=== PATIENT | male | born 1940 | race Caucasian/White ===

== ENCOUNTER 2017-04-19 11:06 | Emergency (ER) | payer OTHER ==
[~2017-04-19] VITALS: Ht 167.6 cm; Wt 92.7 kg
[~2017-04-19 11:06] MED LIST: B COCAP3 PO; BIOT1CAP4 PO; FINA5TAB4 PO; GLUC1CAP28 PO; METO100T44 PO; METO25TA3 PO; MULT-506 PO; OMEGCAP2 PO; RIVA1TAB4 PO; TAMS0.4C59 PO
[2017-04-19 11:14] VITALS: TEMP 37.6; Ht 167.6 cm; Wt 92.7 kg
[2017-04-19] MEDS ORDERED: DIGO30TA PO (11:36)
[2017-04-19] MEDS ORDERED: METO-217 PO (11:36)
--- NOTE | 2017-04-19 12:09 | EMERGENCY ROOM VISIT NOTE ---
History Report prepared by Pa: Lesia Amin Under the Supervision of: Dr. Malik Davey M.D. First contact with patient: 11:56 Chief Complaint: CONGESTION Stated Complaint: CHEST CONGESTION Nursing Triage Summary: pt reports tues started with congestion and sore throat , then cough with clear mucus on sat. denies cp. reports increased sob with exertion reports this is new History of Present Illness The patient is a 76 year old male who presents to the Emergency Room with complaints of constant congestion beginning 4 days ago. The patient states that he has been having chest congestion that has been worsening over the last 4 days. He complains of a sore throat, productive cough, runny nose, and shortness of breath with exertion. He denies any chest pain, abdominal pain, fever, chills. The patient notes that he was concerned that he may be getting pneumonia. He states that he has a history of atrial fibrillation and take Metoprolol and Digitek for atrial flutter. He reports that he took Advil PM last night and slept well and felt slightly better. Source of History: patient Onset: 4 days ago Position: chest Quality: other (conjestion) Timing: constant Associated Symptoms: + sorethroat, + cough, No abdominal pain Note: He complains of a runny nose, and shortness of breath with exertion. He denies any chest pain, fever, chills, and leg pain. Review of Systems All systems have been listed, reviewed, and are negative other than those previously mentioned. Please see Additional Medical History Sheet. Past Medical & Surgical Medical Problems: (1) Atrial fibrillation (2) HTN (hypertension) Surgical Problems: (1) H/O hernia repair (2) S/P hip replacement Family History Cancer Heart disease Lung disease Social History Smoking Status: Former Smoker Marital Status: single Housing Status: lives alone Occupation Status: retired Current/Historical Medications Scheduled B Complex W/ C (Vitamin B Complex-C), 1 CAP PO DAILY Biotin (Biotin), 1 CAP PO DAILY Digoxin (Digitek), 0.125 MG PO DAILY Finasteride (Proscar), 5 MG PO QPM Hjrcbjirepo-Qcdkllwwfuq-Unr C- (Glucosamine Chondroitin M), 2 CAP PO DAILY Metoprolol Succ (Toprol Xl) (Toprol-Xl ), 100 MG PO DAILY Metoprolol Succinate (Toprol Xl), 50 MG PO DAILY Multivitamin (Multivitamin), 1 TAB PO DAILY [place]-3 Fatty Acids (Fish Oil), 1 CAP PO DAILY Rivaroxaban (Xarelto), 20 MG PO DAILY Allergies Coded Allergies: No Known Allergies (Unverified , 11/02/13) Physical Exam Vital Signs Date Time Temp Pulse Resp B/P (MAP) Pulse Ox O2 Delivery O2 Flow Rate FiO2 04/19/17 13:23 72 18 137/88 99 04/19/17 12:48 72 18 136/81 96 Room Air 04/19/17 12:13 85 04/19/17 12:10 95 Room Air 04/19/17 11:14 37.6 89 20 138/79 95 Room Air Physical Exam GENERAL: Patient awake, alert, oriented x 3. Patient follows commands. Patient does not appear toxic. Patient is adequately hydrated and well- nourished. SKIN: No erythema, pallor, cyanosis or rash HEENT: Normal head, pupils equal, reactive to light and accommodation. Ears normal. Oral cavity and posterior pharynx appear normal. Neck: Without adenopathy, no neck vein distention. LUNGS: Clear to auscultation. No wheezes, no rales, no rhonchi. HEART: Grade 3/6 systolic murmur. Irregularly irregular. No gallops. No rubs ABDOMEN: No masses, no rebound, no hepatomegaly or splenomegaly. EXTREMITIES: No signs of trauma. No pedal or pretibial edema. No calf or thigh tenderness. NEUROLOGIC: Cranial nerves II-XII within normal limits. No gross motor sensory function deficits. Medical Decision & Procedures ER Provider Diagnostic Interpretation: X ray results are stated below per my interpretation and the radiologist's interpretation. CHEST 2 VIEWS ROUTINE FINDINGS: The bones soft tissues and hemidiaphragms are normal. The cardiomediastinal silhouette is normal. The lungs are clear. The pulmonary vasculature is normal. IMPRESSION: Negative chest. Electronically signed by: Nino Freeman M.D. 04/19/2017 12:37 PM Dictated Date/Time: 04/19/2017 12:37 PM Laboratory Results 04/19/17 11:24 Red Blood Count 5.14, Mean Corpuscular Volume 88.9, Mean Corpuscular Hemoglobin 29.4, Mean Corpuscular Hemoglobin Concent 33.0, Mean Platelet Volume 10.1, Neutrophils (%) (Auto) 58.3, Lymphocytes (%) (Auto) 25.4, Monocytes (%) (Auto) 14.7, Eosinophils (%) (Auto) 0.4, Basophils (%) (Auto) 0.7, Neutrophils # (Auto ) 4.96, Lymphocytes # (Auto) 2.16, Monocytes # (Auto) 1.25, Eosinophils # (Auto ) 0.03, Basophils # (Auto) 0.06 04/19/17 11:24 Test 04/19/17 11:24 White Blood Count 8.50 K/uL (4.8-10.8) Red Blood Count 5.14 M/uL (4.7-6.1) Hemoglobin 15.1 g/dL (14.0-18.0) Hematocrit 45.7 % (42-52) Mean Corpuscular Volume 88.9 fL (80-100) Mean Corpuscular Hemoglobin 29.4 pg (25-34) Mean Corpuscular Hemoglobin Concent 33.0 g/dl (32-36) Platelet Count 249 K/uL (130-400) Mean Platelet Volume 10.1 fL (7.4-10.4) Neutrophils (%) (Auto) 58.3 % Lymphocytes (%) (Auto) 25.4 % Monocytes (%) (Auto) 14.7 % Eosinophils (%) (Auto) 0.4 % Basophils (%) (Auto) 0.7 % Neutrophils # (Auto) 4.96 K/uL (1.4-6.5) Lymphocytes # (Auto) 2.16 K/uL (1.2-3.4) Monocytes # (Auto) 1.25 K/uL (0.11-0.59) Eosinophils # (Auto) 0.03 K/uL (0-0.5) Basophils # (Auto) 0.06 K/uL (0-0.2) RDW Standard Deviation 41.6 fL (36.4-46.3) RDW Coefficient of Variation 12.8 % (11.5-14.5) Immature Granulocyte % (Auto) 0.5 % Immature Granulocyte # (Auto) 0.04 K/uL (0.00-0.02) Anion Gap 8.0 mmol/L (3-11) Est Creatinine Clear Calc Drug Dose 56.7 ml/min Estimated GFR () 68.1 Estimated GFR (Non- 58.8 BUN/Creatinine Ratio 19.5 (10-20) Calcium Level 8.6 mg/dl (8.5-10.1) Laboratory results as stated above per my review. ECG Indication: other (chest congestion) Rate (beats per minute): 82 Rhythm: atrial flutter Findings: LBBB (incomplete), nonspecific-ST abn Comparison ECG Date: NOV 03, 2013 Change: Now in Atrial flutter with variable block. ED Course 1156: Past medical records reviewed. The patient was evaluated in room C10. A complete history and physical examination was performed. 1312: I reevaluated and updated the patient. 1322: Upon reevaluation, the patient appeared to have improvement of his symptoms. I discussed today's findings with the patient. He verbalized agreement of the treatment plan. The patient was discharged home. Medical Decision Differential diagnosis includes pneumonia, pneumonitis, URI, atrial flutter. Medication Reconciliation: I attest that I have personally reviewed the patient' s current medication list. Blood Pressure Screening: Patient was found to have a slightly elevated blood pressure due to circumstances. I do not believe that the patient requires hypertension monitoring. The patient has a long history of atrial fibrillation. He is now here with pulmonary symptoms. Chest x-ray does not reveal any new infiltrates. White count is not elevated. I believe he has upper respiratory infection. He also complains of some seasonal allergies. I believe that he can take one of the nokn-gsq-gfaidio antihistamines as long as it does not include Sudafed. The patient continue all his other medications as prescribed. Impression Primary Impression: Upper respiratory infection Additional Impressions: Atrial flutter Seasonal allergies Scribe Attestation The scribe's documentation has been prepared under my direction and personally reviewed by me in its entirety. I confirm that the note above accurately reflects all work, treatment, procedures, and medical decision making performed by me. Departure Information Dispostion Home / Self-Care Referrals Kyle Nolan M.D. (PCP) Forms HOME CARE DOCUMENTATION FORM, IMPORTANT VISIT INFORMATION Patient Instructions ED URI Viral, My [facility] Additional Instructions REST Drink extra fluids. Continue all of your current medications as prescribed. You may use Taty for seasonal allergies but not Taty-D. Follow-up with your family physician. Problem Qualifiers
[2017-04-19 12:10] VITALS: O2SAT 95
[2017-04-19 12:28] LABS: BASO % 0.7 %; BASO ABS # 0.06 K/uL (0-0.2); COMPLETE YES; EOS % 0.4 %; HEMATOCRIT 45.7 % (42-52); IG% 0.5 %; LYMPH % 25.4 %; LYMPH ABS # 2.16 K/uL (1.2-3.4); MEAN CELL VOLUME 88.9 fL (80-100); MEAN CORPUSCULAR HEMOGLOBIN 29.4 pg (25-34); MEAN PLATELET VOLUME 10.1 fL (7.4-10.4); MONO % 14.7 %; NEUT % 58.3 %; PLATELET COUNT 249 K/uL (130-400); RED BLOOD COUNT 5.14 M/uL (4.7-6.1)
[2017-04-19 12:35] LABS: BUN/CREATININE RATIO 19.5 (10-20); CALCIUM 8.6 mg/dl (8.5-10.1); CREATININE 1.2 mg/dl (0.60-1.40); POTASSIUM 4.4 mmol/L (3.5-5.1)
--- NOTE | 2017-04-19 12:38 | DIAGNOSTIC IMAGING REPORT ---
CHEST 2 VIEWS ROUTINE CLINICAL HISTORY: cough and congestion dyspnea COMPARISON STUDY: 11/02/2013 FINDINGS: The bones soft tissues and hemidiaphragms are normal. The cardiomediastinal silhouette is normal. The lungs are clear. The pulmonary vasculature is normal. IMPRESSION: Negative chest. Electronically signed by: Nino Freeman M.D. 04/19/2017 12:37 PM Dictated Date/Time: 04/19/2017 12:37 PM
[2017-04-19 13:23] VITALS: BP 137/88; PULSE 72; O2SAT 99
== END 2017-04-19 13:24 | disposition home or self-care (01) ==
LOC: C.EDB 11:07 → C.EDC 13:24
DX: J06.9 Acute upper respiratory infection, unspecified (principal); I48.92 Unspecified atrial flutter; J30.2 Other seasonal allergic rhinitis; I48.91 Unspecified atrial fibrillation; I10 Essential (primary) hypertension; Z80.9 Family history of malignant neoplasm, unspecified; Z82.49 Family history of ischemic heart disease and other diseases of the circulatory system; Z83.6 Family history of other diseases of the respiratory system; Z87.891 Personal history of nicotine dependence; Z79.01 Long term (current) use of anticoagulants; Z79.899 Other long term (current) drug therapy

== ENCOUNTER → 2017-04-26 | Outpatient (CLI) | payer OTHER ==
[~2017-04-26] MED LIST changes: +DIGO30TA PO; +METO-217 PO; -METO25TA3 PO; -TAMS0.4C59 PO
--- NOTE | 2017-04-26 09:27 | DIAGNOSTIC IMAGING REPORT ---
CHEST 2 VIEWS ROUTINE CLINICAL HISTORY: J20.9 Acute bronchitis with [id number] COMPARISON STUDY: 04/19/2017 FINDINGS: The cardiac and mediastinal contours are normal. There is no evidence of focal pulmonary consolidation. There is no evidence of failure. No pleural effusions are visualized.[ IMPRESSION: No active disease in the chest. Electronically signed by: Vikash Quinn M.D. 04/26/2017 9:26 AM Dictated Date/Time: 04/26/2017 9:21 AM
== END | disposition home or self-care (01) ==
LOC: C.RADBC 09:05
PROVIDERS: ATTEND Internal Medicine
DX: J20.9 Acute bronchitis, unspecified (principal)

== ENCOUNTER → 2017-08-08 | Outpatient (CLI) | payer OTHER ==
[~2017-08-08] MED LIST changes: -METO100T44 PO; +METO1TAB69 PO
[2017-08-08 13:45] LABS: CHOLESTEROL/HDL RATIO 4.2; THYROID STIMULATING HORMONE 1.27 uIu/ml (0.300-4.500)
== END | disposition home or self-care (01) ==
LOC: C.LABBC 10:31
PROVIDERS: ATTEND Internal Medicine
DX: E78.5 Hyperlipidemia, unspecified (principal)

== ENCOUNTER → 2017-11-12 | Outpatient (CLI) | payer OTHER ==
[~2017-11-12] MED LIST changes: +METO100T44 PO; -METO1TAB69 PO
== END | disposition home or self-care (01) ==
LOC: C.LAB 08:07
PROVIDERS: ATTEND Urology
DX: N40.1 Benign prostatic hyperplasia with lower urinary tract symptoms (principal)

== ENCOUNTER 2017-11-26 15:16 | Emergency (ER) | payer OTHER ==
[~2017-11-26] VITALS: Ht 167.6 cm; Wt 89.1 kg
[2017-11-26 15:21] VITALS: BP 137/89; TEMP 36.8; O2SAT 96; Ht 167.6 cm; Wt 89.1 kg
--- NOTE | 2017-11-26 16:01 | DIAGNOSTIC IMAGING REPORT ---
R HIP UNILATERAL 2 VIEWS CLINICAL HISTORY: R hip pain COMPARISON: None. DISCUSSION: Total right hip arthroplasty. Good contact between prosthetic and underlying bone. No evidence for acetabular protrusion. Degenerative change of the visualized components of the right hemipelvis. There is no evidence for soft tissue swelling. IMPRESSION: Anatomic alignment status post total right hip arthroplasty. No acute process. The above report was generated using voice recognition software. It may contain grammatical, syntax or spelling errors. Electronically signed by: Nino Freeman M.D. 11/26/2017 4:00 PM Dictated Date/Time: 11/26/2017 3:59 PM
--- NOTE | 2017-11-26 16:02 | DIAGNOSTIC IMAGING REPORT ---
R SHOULDER MIN 2 VIEWS ROUTINE CLINICAL HISTORY: R shoulder pain TRAUMA COMPARISON: None. DISCUSSION: No fractures or dislocations are visualized. There are no erosive or destructive changes. IMPRESSION: No fractures or dislocations identified. Electronically signed by: Vikash Quinn M.D. 11/26/2017 4:01 PM Dictated Date/Time: 11/26/2017 4:00 PM
--- NOTE | 2017-11-26 16:32 | EMERGENCY ROOM VISIT NOTE ---
ED Visit Note First contact with patient: 15:25 I did evaluate and examine this patient myself. I did guide management for the patient. I agree with the APC's assessment as discussed. Please see the APC's dictation for further details. I did independently review the x-rays. There is no evidence of fractures to his hip or shoulder. He is not sure if he hit his head. The patient is on Xarelto and so a head CT was performed.
--- NOTE | 2017-11-26 16:54 | DIAGNOSTIC IMAGING REPORT ---
HEAD WITHOUT CONTRAST (CT) CT DOSE: 638.56 mGycm HISTORY: Trauma fall on ice - eval possible [facility] - on Xarelto TECHNIQUE: Multiaxial CT images of the head were performed without the use of intravenous contrast. A dose lowering technique was utilized adhering to the principles of ALARA. Comparison: None. Findings: The paranasal sinuses and mastoid air cells are clear. The calvarium and skull base are intact. The ventricles and sulci are within normal limits. There is no mass, hematoma, midline shift, or acute infarct. Mild age-related atrophy and chronic small vessel change Impression: No acute intracranial abnormality. Mild age-related atrophy and chronic small vessel change The above report was generated using voice recognition software. It may contain grammatical, syntax or spelling errors. Electronically signed by: Nino Freeman M.D. 11/26/2017 4:53 PM Dictated Date/Time: 11/26/2017 4:52 PM
--- NOTE | 2017-12-02 07:11 | EMERGENCY ROOM VISIT NOTE ---
History First contact with patient: 15:25 Chief Complaint: SHOULDER PAIN Stated Complaint: RIGHT SHOULDER History of Present Illness The patient is a 77 year old male who presents to the Emergency Room with complaints of injuries after he slipped on ice and fell while trying to get into his car. The patient reports landing on his right side. He attempted to catch himself with his right upper extremity, and jammed his shoulder. He also reports landing on his right hip. The patient has had a prior history of right hip replacement by Dr. Lau in 1994. The patient denies hitting his head, and denies any neck pain, back pain or other extremity injuries. The patient rates his discomfort an 8 out of 10. Review of Systems 10 system review was performed and was negative except for pertinent positives and negatives as indicated in history of present illness Past Medical/Surgical History Medical Problems: (1) Atrial fibrillation (2) HTN (hypertension) Surgical Problems: (1) H/O hernia repair (2) S/P hip replacement Family History Cancer Heart disease Lung disease Social History Smoking Status: Former Smoker Marital Status: single Housing Status: lives alone Occupation Status: retired Current/Historical Medications Scheduled B Complex W/ C (Vitamin B Complex-C), 1 CAP PO DAILY Biotin (Biotin), 1 CAP PO DAILY Digoxin (Digitek), 0.125 MG PO DAILY Finasteride (Proscar), 5 MG PO QPM Qaiqogojjze-Qrynvopvwia-Rzu C- (Glucosamine Chondroitin M), 2 CAP PO DAILY Metoprolol Succ (Toprol Xl) (Toprol-Xl ), 100 MG PO DAILY Metoprolol Succinate (Toprol Xl), 50 MG PO DAILY Multivitamin (Multivitamin), 1 TAB PO DAILY [place]-3 Fatty Acids (Fish Oil), 1 CAP PO DAILY Rivaroxaban (Xarelto), 20 MG PO DAILY Allergies Coded Allergies: No Known Allergies (Unverified , 11/26/17) Physical Exam Vital Signs Date Time Temp Pulse Resp B/P (MAP) Pulse Ox O2 Delivery O2 Flow Rate FiO2 11/26/17 15:21 36.8 87 20 137/89 96 Room Air Physical Exam CONSTITUTIONAL: Healthy and well nourished. Alert and oriented X 3 with positive affect. Patient does not appear in any acute distress. GCS 15. HEENT: Normocephalic, atraumatic. Pupils equal, round and reactive. No subconjunctival hemorrhage, hemotympanum, epistaxis, raccoon's eyes or Prado sign. NECK: Full active range of motion without discomfort. RESPIRATORY: Clear to auscultation bilaterally with no wheezing, crackles, rhonchi or stridor. CARDIOVASCULAR: Regular rate and rhythm with no murmurs, rubs or gallops. GASTROINTESTINAL: Bowel sounds present in all quadrants. Soft and nontender to palpation. MUSCULOSKELETAL: Examination shows limited range of motion of the right shoulder. He has no landmarks tenderness of the acromioclavicular joint, bicipital groove, clavicle or elbow region. Further exam shows no ecchymosis or soft tissue edema of the right hip/buttock region. Negative logroll. Negative sitting straight leg raise. Distal pulses are intact. No tenderness to palpation through the posterior ribs or thoracolumbar spine. Equal hand shipping processor bilaterally. INTEGUMENTARY: No rash or other significant dermatologic conditions noted. NEUROLOGIC: No focal neurologic deficits noted. Upper extremities are sensory intact. Medical Decision & Procedures ER Provider Diagnostic Interpretation: My interpretation of right shoulder x-rays does not show any obvious fractures or dislocations. Radiologist report is as follows: R SHOULDER MIN 2 VIEWS ROUTINE CLINICAL HISTORY: R shoulder pain TRAUMA COMPARISON: None. DISCUSSION: No fractures or dislocations are visualized. There are no erosive or destructive changes. IMPRESSION: No fractures or dislocations identified. My interpretation of right hip x-rays does not show any acute fractures or dislocation. Prosthesis is in correct position without any bony lysis. Radiologist report is as follows: R HIP UNILATERAL 2 VIEWS CLINICAL HISTORY: R hip pain COMPARISON: None. DISCUSSION: Total right hip arthroplasty. Good contact between prosthetic and underlying bone. No evidence for acetabular protrusion. Degenerative change of the visualized components of the right hemipelvis. There is no evidence for soft tissue swelling. IMPRESSION: Anatomic alignment status post total right hip arthroplasty. No acute process. Noncontrast CT of the head does not show any acute intracranial bleed, midline shift or mass effect. Radiologist report is as follows: HEAD WITHOUT CONTRAST (CT) CT DOSE: 638.56 mGycm HISTORY: Trauma fall on ice - eval possible [facility] - on Xarelto TECHNIQUE: Multiaxial CT images of the head were performed without the use of intravenous contrast. A dose lowering technique was utilized adhering to the principles of ALARA. Comparison: None. Findings: The paranasal sinuses and mastoid air cells are clear. The calvarium and skull base are intact. The ventricles and sulci are within normal limits. There is no mass, hematoma, midline shift, or acute infarct. Mild age-related atrophy and chronic small vessel change Impression: No acute intracranial abnormality. Mild age-related atrophy and chronic small vessel change ED Course Patient history and physical exam were performed. Nurse's notes were reviewed. Vital signs were reviewed and were normal. The patient refused any analgesics on initial exam. X-rays of the right shoulder and hip were normal. Noncontrast CT of the head was negative for intracranial bleed or other acute injuries. The patient was encouraged to perform range of motion exercises of the right shoulder to prevent stiffness. Intermittent application of ice to areas of discomfort. Tylenol as needed for pain. The patient refused any prescription analgesics. He was encouraged to follow-up with his PCP or orthopedics within the next week for recheck of his shoulder and hip. He was instructed to return to the emergency department for any other concerning symptoms. The patient was happy with plan of care, voiced understanding of all discharge instructions, and rated his discomfort a 5 out of 10 at the conclusion of my exam. The patient was also seen and examined by Dr. Shaw, ED attending physician, who agrees with workup and plan of care. Medical Decision Impression Primary Impression: Contusion of right hip Additional Impressions: Right shoulder strain Fall due to slipping on ice or snow Departure Information Dispostion Home / Self-Care Forms HOME CARE DOCUMENTATION FORM, IMPORTANT VISIT INFORMATION Patient Instructions [facility] Additional Instructions Intermittently apply ice to areas of discomfort. Perform shoulder range of motion exercises as suggested to avoid stiffness. Tylenol 1000 mg every 6-8 hours as needed for pain. Suggest follow-up with your family doctor or orthopedics for recheck of your shoulder and hip in the next 5-7 days if symptoms are not improving. Problem Qualifiers
== END 2017-11-26 17:15 | disposition home or self-care (01) ==
LOC: C.EDB 15:17 → C.EDD 17:15
DX: S70.01XA Contusion of right hip, initial encounter (principal); S46.911A Strain of unspecified muscle, fascia and tendon at shoulder and upper arm level, right arm, initial encounter; W00.9XXA Unspecified fall due to ice and snow, initial encounter; I10 Essential (primary) hypertension; I48.91 Unspecified atrial fibrillation; R40.2412 Glasgow coma scale score 13-15, at arrival to emergency department; Z96.641 Presence of right artificial hip joint; Z79.01 Long term (current) use of anticoagulants; Z87.891 Personal history of nicotine dependence; Z82.49 Family history of ischemic heart disease and other diseases of the circulatory system; Z83.6 Family history of other diseases of the respiratory system

== ENCOUNTER 2019-08-26 06:51 | Observation (INO) ==
[2019-08-26] MEDS ORDERED: MIDAZOLAM HCL 5 MG/ML 1 ML VIAL ONE (07:37)
[2019-08-26] MEDS ORDERED: LIDOCAINE HCL 1% 20 ML VIAL ONE (07:37)
[2019-08-26] MEDS ORDERED: fentaNYL citrate 100 MCG/2 ML VIAL ONE (07:37)
[2019-08-26] MEDS ORDERED: BUPIVACAINE 0.25% 30 ML VIAL ONE (07:37)
[2019-08-26] MEDS ORDERED: BACITRACIN INJ 50,000 UNIT VIAL ONE (07:38)
[2019-08-26] MEDS ORDERED: CEFAZOLIN 250 MG/ML 1 GM VIAL ONE (07:38)
--- NOTE | 2019-08-26 08:27 | History & Physical Bridge Note ---
Date of Service August 26, 2019 History & Physical Bridge Note I have examined the patient, reviewed the History & Physical and in the interval since the performance of the History & Physical I have noted the following changes of clinical significance: no changes noted
--- NOTE | 2019-08-26 08:27 | Pre Anesthesia Assessment ---
Date of Service August 26, 2019 Pre Sedation Assessment Vital Signs Temp Pulse Resp BP Pulse Ox 08/26/19 07:21 36.7 C 103 H 16 139/91 96 Cardiovascular + irregularly irregular Respiratory + respiratory effort normal Pre-Sedation Airway Assessment Smoking Status: Former smoker Hx Sleep Apnea: No Short, Thick Neck: No Thyromental Distance: > or= 3.5 Finger Breadths Oral Cavity: + Dentures Mallampati Class: III ASA: ASA4 NPO Status Date of Last Intake of Fluids: 08/26/19 Time of Last Intake of Fluids: 06:00 Last Oral Intake of Fluids Comment: sip with meds Date of Last Intake of Solid Food: 08/25/19 Time of Last Intake of Solid Foods: 18:00 Procedure Planning Contraindications for Sedation: none Current Medications Reviewed: Yes Notes The planned sedation has been discussed with the patient. Informed Consent was obtained. I have identified the patient, determined the appropriateness of s edation and have assessed the patient immediately prior to the procedure. All medicine(s) and interventions are by my order.
[2019-08-26] MEDS ORDERED: ACETAMINOPHEN 325 MG TAB PO PRN (09:21)
--- NOTE | 2019-08-26 09:21 | Procedure Note ---
Procedure Note Date of Service August 26, 2019 Note Procedure performed: Implantation of single-chamber permanent pacemaker Staff sociocultural anthropology professor: Jay Jaime MD Indication: The patient is a 78-year-old gentleman with a recent implantation of a percutaneous aortic valve. There was noted to have permanent atrial fibrillation and in the post procedure. Was also noted to have episodes of asystole lasting nearly 4 seconds. Yesterday he suffered a syncopal episode. Based on his symptoms and known conduction disease is felt be good candidate for permanent pacemaker due to symptomatic nonreversible AV node dysfunction. Procedure in detail: The patient was informed of the risks benefits and alternatives to the intended procedure and she wished to proceed. He was taken to the electrophysiology suite in a fasting state. A preoperative antibiotic had been administered. The patient was monitored electrocardiographically throughout today's procedure and conscious sedation was administered per protocol. The left upper pectoral area is prepped and draped in usual sterile fashion. This area was anesthetized using subcutaneous administration of a xylocaine solution. An incision was made at this site and carried down to the prepectoralis fascia using sharp dissection. Electrocautery was also employed for dissection as well as for hemostasis. A device pocket was fashioned tissues above the pectoralis muscle. Subsequent to this maneuver the left axillary vein was accessed using modified Seldinger technique. A sheath was placed over a guidewire at this site and used to facilitate passage of the pacing lead to the right ventricular apex under fluoroscopic guidance. Adequate sensing and threshold parameters were obtained prior to Active fixation of the lead to the endocardial surface. The proximal portion lead was then sutured the prepectoral fascia using nonabsorbable suture. The device pocket was irrigated with antibiotic solution. The lead was then attached to the device. The device and lead were then placed in the pocket and pocket was closed in 3 layers of absorbable suture. Steri-Strips and sterile dressing were applied. The device was tested noninvasively prior to conclusion the procedure. The patient tolerated procedure well there no immediate complications. Equipment used: New pulse generator: X Ray Technician [employer]. Model number: [id number] serial number [id number] Right ventricular lead: X Ray Technician [employer]. Model number: [id number] serial number [id number] Measured data: Right ventricular lead: R waves measured 6.9 mV. Pacing threshold 0.6 V 0.5 ms with a pacing impedance of 807 ohms Impression: Successful implantation of single-chamber permanent pacemaker Coding
[2019-08-26] MEDS ORDERED: OXYCODONE HCL IR 5 MG TAB (IMMEDIATE RELEASE) PO PRN (09:23)
[2019-08-26] MEDS ORDERED: METOPROLOL TARTRATE 50 MG TAB PO ONE (09:24)
--- NOTE | 2019-08-26 09:25 | Post Anesthesia Assessment ---
Date of Service August 26, 2019 Post Sedation Assessment Vital Signs Temp Pulse Resp BP Pulse Ox 08/26/19 07:21 36.7 C 103 H 16 139/91 96 Recovery Score Activity: Moves 4 extremities Respiration: Deep Breath/Cough Circulation: +/-20% PreAnes Value Consciousness: Fully Awake Oxygen Saturation: > 92% On Room Air Post Sedation Plan On clinical assessment, the patient appears to have tolerated the sedation without complications. Patient is recovering as anticipated. Patient will continue to be monitored by nursing and may be discharged when sedation discharge criteria are met per below protocol. Upon Completions of procedure and additional 15 minutes continue every 5 minute vital signs and the P.A.R. score; then discharge to a Phase I or Fast Track to Phase II per the following guidelines: * Discharge Patient to appropriate Phase II area if PAR is 8 or greater or return to pre- procedure baseline. The post - procedure orders will be as directed. * If PAR score is less than 8 or not return to pre-procedure baseline then patient will follow Phase I monitoring till PAR is reached for Phase II. The Phase I may be done in procedure room or may call to secure a Phase I area. * If naloxone or flumazenil are used for reversal, hold in Phase I for c ontinued monitoring from when last reversal dose was given for a minimum of 60 minutes or longer pending the nurse and/or physician discretion of patient condition before discharge to Phase II. Please call the Sedation Physician to re-evaluate and complete post-note for discharge to Phase II area. Do NOT discharge from procedure sedation or Phase 1 until post- sedation evaluation note is complete by procedure /sedation MD Sedation Discharge Instructions to be given to the patient at discharge to home.
[2019-08-26] MEDS: CEFAZOLIN 1000MG 1,000 MG/7.5 ML SYR IV SCH ×2 (15:49→23:27)
[2019-08-27] MEDS: CEFAZOLIN 1000MG 1,000 MG/7.5 ML SYR IV SCH (07:22)
--- NOTE | 2019-08-27 08:46 | XRay Report ---
XR chest 2V PA/lateral CLINICAL HISTORY: 78 years-old Male presenting with EXACT TIME ORDERED Evaluate for pneumothorax and l. TECHNIQUE: PA and lateral views of the chest were obtained. COMPARISON: 11/02/2013. FINDINGS: Interval placement of a left subclavian pacer with single lead to the right ventricular apex. Atheros clerosis of the aortic arch. Cardiac silhouette enlarged. Mitral annular calcification noted. Stented prosthetic aortic valve. Mildly coarsened lung markings. No focal opacity. No large effusion or pneu mothorax. Suspected underlying osteopenia. Degenerative changes of the thoracic spine. Fractures of t he anterolateral right sixth and seventh ribs, age indeterminate. IMPRESSION: 1. Interval placement of a left subclavian single lead pacer, appropriately positioned. No pneumotho rax. 2. Cardiomegaly. 3. Age-indeterminate anterolateral right sixth and seventh rib fractures. Correlate clinically for p oint tenderness. Electronically signed by: Kyle Michelle M.D. 08/27/2019 8:45 AM
[2019-08-27] MEDS ORDERED: METOPROLOL SUCC 50MG EXT REL TAB PO SCH (09:00)
[2019-08-27] MEDS ORDERED: FINASTERIDE 5 MG TAB PO SCH (09:00)
--- NOTE | 2019-08-31 12:58 | Discharge Summary ---
Date of Service August 31, 2019 Admission HPI Per Admitting Provider Patient with syncope and conduction disease Principal Diagnosis q Discharge Data Allergies Allergy/AdvReac Type Severity Reaction Status Date / Time No Known Allergies Allergy Verified 08/18/19 10:39 Procedures Performed Operation Date: 08/26/19 08:30 Actual Procedures p Pacer with Ventricular Lead - David Jaime MD Ordered Studies 08/26/19 06:38 CL Cath Imgs for PACS use only Routine Hospital Course (1) Syncope: Patient was admitted underwent uncomplicated placement of single chamber [employer] permanent pacemaker Total Time Total Time Spent Total Time Spent (In Minutes): 10 Discharge Plan Discharge Items Patient Disposition: Home - Self-Care Reason For Visit: SCP Discharge Diagnosis: Syncope, heart block Activity: Resume your previous activity Activity Comment: No lifting left arm above shoulder behind neck for 6 weeks Lifting: No more than 10 pounds Bathing: Keep incision dry Bathing Comment: Keep incision dry and Steri-Strips intact until follow-up Driving/Machine Use: No limitations Non-emergency contact: Trial Consultant Call non-emergency contact if: your pain is concerning for you, you have a fever, your wound has increased redness and your wound has increased drainage Follow-up/Referrals: Kyle Nolan MD [Primary Care Provider] - Diet: Heart Healthy Addtl Attending Provider Instructions: None Pending Studies at Discharge: No Stand-Alone Forms: My [facility] Medications and DC Order Prescriptions: Continued ammonium lactate 12 % cream 1 appln TOP DAILY Qty: 140 RF: 0 biotin 2,500 mcg capsule 2,500 mcg PO DAILY Qty: 30 RF: 2 Centrum Silver 400-250 mcg tablet,chewable 1 tab PO DAILY Qty: 30 RF: 0 finasteride 5 mg tablet 5 mg PO DAILY Qty: 30 RF: 2 omega-3 fatty acids 1,000 mg capsule 1,000 mg PO DAILY Qty: 30 RF: 0 Glucosamine Complex-MSM capsule 1 cap PO DAILY Qty: 90 RF: 0 vitamin B complex [B Complex 1] tablet 1 tab PO DAILY Qty: 30 RF: 0 Xarelto 20 mg tablet 20 mg PO DAILY Qty: 90 RF: 3 Changed metoprolol succinate 50 mg tablet extended release 24 hr 100 mg PO DAILY Qty: 0 RF: 0 Discharge Orders: Discharge Order (Routine); Ordered 08/27/19 Ordered By: Alethea Díaz Admission Data Admit Date/Time: 08/26/19 08:44 Attending Provider: David Jaime Admit Provider: David Jaime Primary Care Provider: Kyle Nolan Other Interventions: Discharge Summary Assessment (RN) Last Done: 08/27/19 09:11 DC Date/Time DO NOT enter until pt leaves facility: 08/27/19 10:45
--- NOTE | 2019-09-04 15:24 | Coding Query ---
A supporting diagnosis is required for the test/procedure performed on this patient in order for us to be reimbursed by the patient's insurance. Please provide a supporting diagnosis for the following test/procedure listed below next to the test name along with your signature. *If there is no additional diagnosis for this patient that would support the following test/procedure please document that below next to the test/procedure. Test(s)/Procedure(s) that require a supporting diagnosis: PACER WITH VENTRICULAR LEAD DIAGNOSIS: Provider Signature: Date: Thank you Jacqueline Bermudez Health Information Management Once completed, please kindly fax back to [phone] For questions please call [phone] MARCO A
== END 2019-08-27 10:45 | disposition home or self-care (01) ==
LOC: EP 06:51 → 2S 06:51

== ENCOUNTER 2020-05-08 17:43 | Inpatient (IN) ==
[2020-05-08] MEDS ORDERED: SODIUM CHLORIDE 0.9% 1000ML 1,000 ML IV ONE (17:55)
[2020-05-08 18:25] LABS: iSTAT Creatinine 1.7 mg/dl (0.6-1.3); iSTAT Ionized Calcium 0.97 mmol/l (1.12-1.32); iSTAT Potassium 5.6 mmol/L (3.3-5.0)
--- NOTE | 2020-05-08 18:26 | Emergency Department Note ---
Impression & Plan Fall, Pressure ulcer of back, MARCUS (acute kidney injury), Anaplasmosis, Elevated lactic acid level, Elevated LFTs, Non-ST elevation IL (NSTEMI), Rhabdomyolysis, Dyspnea, Atrial flutter, chronic ED Provider Note Provider: Geovany hZou MD DATE OF SERVICE: 05/08/2020 CHIEF COMPLAINT: Found on the floor, altered HISTORY OF PRESENT ILLNESS: Patient is a 79-year-old gentleman with a history of atrial fibrillation on Xarelto, cataract, BPH, hypertension, sick sinus syndrome with pacemaker presenting today after being found by a neighbor on the floor of his house. Evidently neighbor grew concerned when male began to stack up in the patient's mailbox and went to check on him. EMS states that they found the patient laying on carpeted floor at home on his back. States that the patient was somewhat groggy and mildly hypoxic requiring oxygen. Received 400 mL of IV fluid prior to arrival here at the hospital. No other family were noted at home there was some concerns about the cleanliness of the house the patient was living and reported. Patient was also found to be in urinated underwear and pants. Patient himself states he has some minimal mild diffuse pain and just feels fatigued. Patient denies shortness of breath. Patient states he is unsure how long he was on the floor for. Unable to give significant details here. Patient states he is 50 years old at 1978 and Jovani is the president. Patient states he does have a brother in the area. Patient states he takes Xarelto but has not today/this evening. REVIEW OF SYSTEMS: A total of 10 review of systems was obtained and negative except as stated above in the HPI. PAST MEDICAL HISTORY: As noted above MEDICATIONS: Reviewed his medication list which include Xarelto SOCIAL HISTORY: Former smoker, lives at home PHYSICAL EXAM: GENERAL: Laying on the stretcher with a nonrebreather in place open his eyes to commands and gives his name. Appears fatigued. Head: normocephalic and atraumatic EYES: No injection, discharge or icterus. PERRL NECK: Trachea midline. Supple. ENT: Mucous membranes pink and moist. LUNGS: Airway patent. No retractions. Breath sounds clear HEART: Regular rate and rhythm. No chest wall tenderness ABDOMEN: Soft and non-tender, without guarding or rebound. BACK: No midline tenderness, although there is some mild diffuse lower back/sacral pain as well as some slight pain overlying the left shoulder blade. A very large approximately 20 x 8 cm area of erythema with decompressed blister over the lower sacrum is present with some small stage II breakdown over the left shoulder blade area approximately 8 x 10 cm. No crepitus appreciated. SKIN: Acyanotic, warm, dry, without rashes EXTREMITIES: Without swelling, tenderness or deformity NEUROLOGICAL: No focal deficits. Moving all extremities. No apparent facial droop. Patient states his age is 50 is 1977, Jovani is the president. Unable to give detailed history of events. EK bpm appears to be atrial flutter with a 1-4 block with a left bundle branch. There is no acute ST segment elevation. QRS at 134 ms. QTC is 505. In comparison to previous available from April [id number] now has a full left bundle branch CONTINUOUS CARDIAC MONITORING: was ordered and showed a heart rate of 72 bpm in rate controlled a flutter Patient's hypertension was referred to the hospitalist GCS 13 slightly confused responses and eyes opening to verbal command HOSPITAL COURSE: [id number] Patient was first seen and H&P performed. Patient was rolled and soiled clothing was removed. 1813 patient reassessed and having blood work drawn at this time. 1917 patient updated sitting upright denying pain at this time. Updated on current findings and awaiting CT imaging. Discussed plan for admission. 2004 Patient reassessed and updated. Patient was sitting up in bed. Seems a bit more alert. In agreement with plan for admission. Hospitalist contacted, Dr. Pimentel. Patient's laboratory studies and imaging reviewed. Differential includes Fracture, dislocation, contusion, intra-abdominal, pneumothorax, intrathoracic, intracranial, neurologic, compartment syndrome, rhabdomyolysis, as well as other pathologies. IMPRESSION/MEDICAL DECISION MAKING: Patient presents with found on the floor for an unknown period of time at home with some shortness of breath and altered mental status. Patient seems a bit confused and unsure how long he was on the floor. Has evidence of pressure ulcerations of the back concerning for a significant time. Given some fluid hydration prior to arrival. No focal deficits appreciated. Patient is r equiring oxygen at this juncture. Temperature of 37 5 Celsius initially noted EMS states the patient was not in a significantly warm environment. Patient does have evidence what appears to be an acute kidney injury but no evidence of hyperkalemia. Lactate is elevated likely consistent with a dehydrational state and received intravenous IV fluids here. Laboratory studies showed some evidence of mild LFT abnormality and a blood smear consistent with anaplasmosis. Thrombocytopenia consistent with this. Given his increased work of breathing IV doxycycline was ordered. No anemia or leukocytosis. Patient has evidence of rhabdomyolysis with an elevated CPK. Again IV fluids have been ordered. Patient has an elevated troponin of 0.528 today concerning for likely demand given the history available rather than acute ACS. Chest x-ray with evidence of acute pneumothorax or pneumonia or lung space opacity. Pelvis x-ray without a noted fracture. CT the head without acute intracranial bleed noted. CT of the cervical spine, lumbar and, thoracic spine noted without acute traumatic injury. CT of the chest and pelvis shows no significant intra-thoracic or abdominal pelvic injury. We will start the patient on a low-dose heparin drip at this time without bolus given the trauma but acknowledging the fact he is in atrial flutter and with an elevated troponin. Patient in agrement for admission and seems a bit clearer; the hospitalist was alerted for admission. DIAGNOSIS: Fall, pressures ulcers of the back, confusion, anaplasmosis, acute kidney injury, rhabdomyolysis, NSTEMI, rate controlled atrial flutter, shortness of breath DISPOSITION: Hospitalist will evaluate, admission Patient was agreeable with this plan. Critical Care I have personally spent 37 minutes of critical care time in the direct management of this patient. This includes bedside care, interpretation of diagnostic studies, and testing, discussion with consultants, patient, and fa nav members, and other required patient management activities. These 37 minutes is in excess of all separately billable procedures. Past Med/Surg History Social History Preferred Language: Sami Communication Ability: Effective Visual Impairment: Limited Hearing Ability: Hard of Hearing Acid Adjuster Required: No Beliefs That Will Affect Care: None marital status: Single Current Living Situation: Alone current occupational status: retired Feels Safe at Home: Yes Smoking Status: Former smoker Tobacco Type: cigarettes ; Age Started Using Tobacco: 19 ; Age Quit Using Tobacco: 64 ; packs per day: 0.5 ; Cigarettes Per Day: 2003 ; Second Hand Exposure: No ; Hx Alcohol Use: No Hx Substance Use: No Childhood Exposure to Second-Hand Smoke: Yes caffeine: Yes during the past year weight has: decreased > 10 lbs Dental Care, Regularly: Yes Physical Activity Frequency: 1-2 Times per Week Seatbelt Use: always Sunscreen Use: Yes Allergies Allergies Allergy/AdvReac Type Severity Reaction Status Date / Time No Known Allergies Allergy Verified 05/08/20 18:15 Home Meds Home Medications Medication Instructions Recorded Confirmed Xarelto 20 mg PO QPM 01/01/20 05/08/20 diclofenac sodium 2 g TOPICAL UD PRN 01/01/20 05/08/20 metoprolol succinate 50 mg 50 mg PO QAM tab 03/22/20 05/08/20 tablet,extended release 24 hr ammonium lactate 1 appln TOP QPM 04/22/20 05/08/20 diphenhydramine-acetaminophen 1 tab PO HS PRN 04/22/20 05/08/20 [Acetaminophen PM] finasteride 5 mg PO QPM 04/22/20 05/08/20 vitamin B complex 1 cap PO DAILY 04/22/20 05/08/20 Previous Rx's Medication Instructions Recorded biotin 2,500 mcg capsule 2,500 mcg PO DAILY #30 cap 07/01/19 [id number]-[id number]-[id number]-vitC 1 cap PO DAILY #90 cap 07/01/19 multivit with min-folic 1 tab PO DAILY #30 tab 07/01/19 acid-lutein 400 mcg-250 mcg chewable tablet omega-3 fatty acids 1,000 mg 1,000 mg PO DAILY #30 cap 07/01/19 capsule Results & Data (ED) Vital Signs Vital Signs - 24 hr 05/08/20 17:43 05/08/20 18:06 05/08/20 18:15 Temperature 37.5 C Temperature Source Oral Pulse Rate 68 69 Pulse Rate [Apical] 68 Pulse Rate from SpO2 Sensor 68 Pulse Rhythm Irregular Pulse Rhythm [Apical] Irregular Respiratory Rate 36 H 38 H Respiratory Pattern Rapid/Deep Blood Pressure 155/77 H 162/83 H Blood Pressure [Left Arm] 162/83 H Blood Pressure Mean 103 103 Blood Pressure Mean [Left Arm] 109 Blood Pressure Position Lying Pulse Oximetry 95 99 99 Oxygen Delivery Method Non-rebreather Non-rebreather Oxygen Flow Rate Sepsis Recent Fever Within 48 Hours No Sepsis New/Unexplained Change in Mental Status No Sepsis Action Taken by Nursing No Action Required 05/08/20 18:22 05/08/20 18:31 05/08/20 19:21 Temperature Temperature Source Pulse Rate 69 69 Pulse Rate [Apical] Pulse Rate from SpO2 Sensor 69 67 Pulse Rhythm Pulse Rhythm [Apical] Respiratory Rate 38 H Respiratory Pattern Blood Pressure 147/90 H 166/76 H Blood Pressure [Left Arm] Blood Pressure Mean 100 90 Blood Pressure Mean [Left Arm] Blood Pressure Position Pulse Oximetry 99 95 98 Oxygen Delivery Method Non-rebreather Oxygen Flow Rate 13 Sepsis Recent Fever Within 48 Hours Sepsis New/Unexplained Change in Mental Status Sepsis Action Taken by Nursing Laboratory Data Result diagrams: 05/08/20 18:25 05/08/20 18:25 Lab Results 05/08/20 05/08/20 05/08/20 Range/Units 18:12 18:25 18:25 WBC (4.8-10.8) K/uL RBC (4.7-6.1) M/uL Hgb (14.0-18.0) g/dL POC Hgb 17.0 (14.0-18.0) g/dl Hct (42-52) % POC Hct 50 (42-52) % MCV (80-100) fL MCH (25-34) pg MCHC (32-36) g/dL RDW Std Deviation (36.4-46.3) fL RDW Coeff of Shahid (11.5-14.5) % Plt Count (130-400) K/uL MPV (7.4-10.4) fL Immature Gran % (Auto) % Neut % (Auto) % Lymph % (Auto) % Irwin % (Auto) % Eos % (Auto) % Baso % (Auto) % Neut # (Auto) (1.4-6.5) K/uL Lymph # (Auto) (1.2-3.4) K/uL Irwin # (Auto) (0.11-0.59) K/uL Eos # (Auto) (0-0.5) K/uL Baso # (Auto) (0-0.2) K/uL Immature Gran # (Auto) (0.00-0.02) K/uL Platelet Estimate (Normal) Giant Platelets PT 12.4 H (9.0-12.0) Seconds INR 1.2 H (0.9-1.1) APTT (21.0-31.0) Seconds PTT Ratio POC Sodium 135 (135-144) mmol/L Sodium (136-145) mmol/L POC Potassium 5.6 H (3.3-5.0) mmol/L Potassium (3.5-5.1) mmol/L POC Chloride 108 (101-112) mmol/L Chloride (98-107) mmol/L Carbon Dioxide (21-32) mmol/L POC Total CO2 18 L (24-31) mmol/L Anion Gap (3-11) POC Anion Gap 16.0 (16-25) mmol/L POC BUN 43 H (7-18) mg/dl BUN (7-18) mg/dl Creatinine (0.6-1.4) mg/dl POC Creatinine 1.7 H (0.6-1.3) mg/dl Est Cr Clr Drug Dosing ml/min Est GFR ( Amer) Est GFR (Non-Af Amer) BUN/Creatinine Ratio (10-20) Glucose (70-99) mg/dl POC Glucose (other) 133 H (70-99) mg/dl Lactate 3.6 H* (0.4-2.0) mmol/L Calcium (8.5-10.1) mg/dl POC Ioniz Calcium Ese 0.97 L (1.12-1.32) mmol/l Magnesium (1.8-2.4) mg/dl Total Bilirubin (0.2-1) mg/dl AST (15-37) U/L ALT (12-78) U/L Alkaline Phosphatase (45-117) U/L Total Creatine Kinase (39-308) U/L Troponin I (0-0.045) ng/ml Total Protein (6.4-8.2) gm/dl Albumin (3.4-5.0) gm/dl Globulin (2.5-4.0) gm/dl Albumin/Globulin Ratio (0.9-2) TSH (0.300-4.500) uIu/ml Urine Color Urine Appearance (Clear) Urine pH (4.5-7.5) Ur Specific [place] (1.000-1.030) Urine Protein (Negative) Urine Glucose (UA) (Negative) Urine Ketones (Negative) Urine Blood (Negative) Urine Nitrite (Negative) Urine Bilirubin (Negative) Urine Urobilinogen (Negative) Ur Leukocyte Esterase (Negative) Urine WBC (Auto) (0-5) /hpf Urine RBC (Auto) (0-4) /hpf U Hyaline Cast (Auto) (0-5) /lpf U Epithel Cells (Auto) (0-5) /lpf Urine Bacteria (Auto) (Negative) Ur Renal Epithelial Cell Granular Casts (0) /lpf Urine Yeast Anaplasma Smear Anaplasma Comment 05/08/20 05/08/20 05/08/20 Range/Units 18:25 18:25 18:25 WBC 6.66 (4.8-10.8) K/uL RBC 5.14 (4.7-6.1) M/uL Hgb 15.6 (14.0-18.0) g/dL POC Hgb (14.0-18.0) g/dl Hct 45.6 (42-52) % POC Hct (42-52) % MCV 88.7 (80-100) fL MCH 30.4 (25-34) pg MCHC 34.2 (32-36) g/dL RDW Std Deviation 44.0 (36.4-46.3) fL RDW Coeff of Shahid 13.6 (11.5-14.5) % Plt Count 87 L (130-400) K/uL MPV 11.1 H (7.4-10.4) fL Immature Gran % (Auto) 0.6 % Neut % (Auto) 74.0 % Lymph % (Auto) 18.0 % Irwin % (Auto) 6.9 % Eos % (Auto) 0.0 % Baso % (Auto) 0.5 % Neut # (Auto) 4.93 (1.4-6.5) K/uL Lymph # (Auto) 1.20 (1.2-3.4) K/uL Irwin # (Auto) 0.46 (0.11-0.59) K/uL Eos # (Auto) 0.00 (0-0.5) K/uL Baso # (Auto) 0.03 (0-0.2) K/uL Immature Gran # (Auto) 0.04 H (0.00-0.02) K/uL Platelet Estimate Decreased L (Normal) Giant Platelets 1+ PT (9.0-12.0) Seconds INR (0.9-1.1) APTT (21.0-31.0) Seconds PTT Ratio POC Sodium (135-144) mmol/L Sodium 137 (136-145) mmol/L POC Potassium (3.3-5.0) mmol/L Potassium 4.5 (3.5-5.1) mmol/L POC Chloride (101-112) mmol/L Chloride 105 (98-107) mmol/L Carbon Dioxide 20 L (21-32) mmol/L POC Total CO2 (24-31) mmol/L Anion Gap 12.0 H (3-11) POC Anion Gap (16-25) mmol/L POC BUN (7-18) mg/dl BUN 40 H (7-18) mg/dl Creatinine 1.77 H (0.6-1.4) mg/dl POC Creatinine (0.6-1.3) mg/dl Est Cr Clr Drug Dosing 33.3 ml/min Est GFR ( Amer) 41.7 Est GFR (Non-Af Amer) 36.0 BUN/Creatinine Ratio 22.4 H (10-20) Glucose 121 H (70-99) mg/dl POC Glucose (other) (70-99) mg/dl Lactate (0.4-2.0) mmol/L Calcium 8.9 (8.5-10.1) mg/dl POC Ioniz Calcium Ese (1.12-1.32) mmol/l Magnesium 2.8 H (1.8-2.4) mg/dl Total Bilirubin 1.5 H (0.2-1) mg/dl AST 166 H (15-37) U/L ALT 84 H (12-78) U/L Alkaline Phosphatase 59 (45-117) U/L Total Creatine Kinase 2470 H (39-308) U/L Troponin I 0.528 H* (0-0.045) ng/ml Total Protein 7.9 (6.4-8.2) gm/dl Albumin 2.7 L (3.4-5.0) gm/dl Globulin 5.2 H (2.5-4.0) gm/dl Albumin/Globulin Ratio 0.5 L (0.9-2) TSH 0.508 (0.300-4.500) uIu/ml Urine Color Dark Yellow Urine Appearance Turbid A (Clear) Urine pH 5.0 (4.5-7.5) Ur Specific [place] 1.028 (1.000-1.030) Urine Protein 2+ H (Negative) Urine Glucose (UA) Negative (Negative) Urine Ketones Trace H (Negative) Urine Blood 3+ H (Negative) Urine Nitrite Negative (Negative) Urine Bilirubin Negative (Negative) Urine Urobilinogen Negative (Negative) Ur Leukocyte Esterase Negative (Negative) Urine WBC (Auto) 1-5 (0-5) /hpf Urine RBC (Auto) 10-30 H (0-4) /hpf U Hyaline Cast (Auto) >30 H (0-5) /lpf U Epithel Cells (Auto) >30 H (0-5) /lpf Urine Bacteria (Auto) Negative (Negative) Ur Renal Epithelial Cell Not Reportable Granular Casts >30 H (0) /lpf Urine Yeast Not Reportable Anaplasma Smear See Comment A Anaplasma Comment Pos for Anaplasma 05/08/20 Range/Units 18:25 WBC (4.8-10.8) K/uL RBC (4.7-6.1) M/uL Hgb (14.0-18.0) g/dL POC Hgb (14.0-18.0) g/dl Hct (42-52) % POC Hct (42-52) % MCV (80-100) fL MCH (25-34) pg MCHC (32-36) g/dL RDW Std Deviation (36.4-46.3) fL RDW Coeff of Shahid (11.5-14.5) % Plt Count (130-400) K/uL MPV (7.4-10.4) fL Immature Gran % (Auto) % Neut % (Auto) % Lymph % (Auto) % Irwin % (Auto) % Eos % (Auto) % Baso % (Auto) % Neut # (Auto) (1.4-6.5) K/uL Lymph # (Auto) (1.2-3.4) K/uL Irwin # (Auto) (0.11-0.59) K/uL Eos # (Auto) (0-0.5) K/uL Baso # (Auto) (0-0.2) K/uL Immature Gran # (Auto) (0.00-0.02) K/uL Platelet Estimate (Normal) Giant Platelets PT (9.0-12.0) Seconds INR (0.9-1.1) APTT 33.1 H (21.0-31.0) Seconds PTT Ratio 1.2 POC Sodium (135-144) mmol/L Sodium (136-145) mmol/L POC Potassium (3.3-5.0) mmol/L Potassium (3.5-5.1) mmol/L POC Chloride (101-112) mmol/L Chloride (98-107) mmol/L Carbon Dioxide (21-32) mmol/L POC Total CO2 (24-31) mmol/L Anion Gap (3-11) POC Anion Gap (16-25) mmol/L POC BUN (7-18) mg/dl BUN (7-18) mg/dl Creatinine (0.6-1.4) mg/dl POC Creatinine (0.6-1.3) mg/dl Est Cr Clr Drug Dosing ml/min Est GFR ( Amer) Est GFR (Non-Af Amer) BUN/Creatinine Ratio (10-20) Glucose (70-99) mg/dl POC Glucose (other) (70-99) mg/dl Lactate (0.4-2.0) mmol/L Calcium (8.5-10.1) mg/dl POC Ioniz Calcium Ese (1.12-1.32) mmol/l Magnesium (1.8-2.4) mg/dl Total Bilirubin (0.2-1) mg/dl AST (15-37) U/L ALT (12-78) U/L Alkaline Phosphatase (45-117) U/L Total Creatine Kinase (39-308) U/L Troponin I (0-0.045) ng/ml Total Protein (6.4-8.2) gm/dl Albumin (3.4-5.0) gm/dl Globulin (2.5-4.0) gm/dl Albumin/Globulin Ratio (0.9-2) TSH (0.300-4.500) uIu/ml Urine Color Urine Appearance (Clear) Urine pH (4.5-7.5) Ur Specific [place] (1.000-1.030) Urine Protein (Negative) Urine Glucose (UA) (Negative) Urine Ketones (Negative) Urine Blood (Negative) Urine Nitrite (Negative) Urine Bilirubin (Negative) Urine Urobilinogen (Negative) Ur Leukocyte Esterase (Negative) Urine WBC (Auto) (0-5) /hpf Urine RBC (Auto) (0-4) /hpf U Hyaline Cast (Auto) (0-5) /lpf U Epithel Cells (Auto) (0-5) /lpf Urine Bacteria (Auto) (Negative) Ur Renal Epithelial Cell Granular Casts (0) /lpf Urine Yeast Anaplasma Smear Anaplasma Comment Administered Medications Doxycycline Hyclate 100 mg/ (Dextrose) 110 mls @ 50 mls/hr IV NOW STA Stop: 05/08/20 21:38 Last Admin: 05/08/20 19:46 Dose: 50 mls/hr Documented by: [id number] Heparin Sodium/Dextrose (Heparin Sodium/Dextrose) 25,000 units in 500 mls @ 16 mls/hr IV .Q24H MARLENE; Protocol Stop: 06/07/20 20:14 Last Admin: 05/08/20 20:26 Dose: 800 units/hr, 16 mls/hr Documented by: [id number] Cosigned by: [id number] Discontinued Medications Sodium Chloride (Nss 1000ml) 1,000 mls @ 999 mls/hr IV .Q1H1M ONE Stop: 05/08/20 18:55 Last Infusion: 05/08/20 19:28 Dose: 0 mls/hr Documented by: [id number] Admin: 05/08/20 18:00 Dose: 999 mls/hr Documented by: [id number] Lactated Ringer's (Lr) 1,000 mls @ 999 mls/hr IV .Q1H1M ONE Stop: 05/08/20 20:09 Last Admin: 05/08/20 19:32 Dose: 999 mls/hr Documented by: [id number] Discharge Plan Visit Data Chief Complaint: Fall Stated Complaint: AMS, POSSIBLE RHABDO ED Provider: Geovany Zhou Discharge Problem: Fall, Pressure ulcer of back, MARCUS (acute kidney injury), Anaplasmosis, Elevated lactic acid level, Elevated LFTs, Non-ST elevation IL (NSTEMI), Rhabdomyolysis, Dyspnea, Atrial flutter, chronic Patient Disposition: Being Evaluated by Hospitalist Forms Stand Alone Forms: [facility] Prescriptions Prescriptions: No Action biotin 2,500 mcg capsule 2,500 mcg PO DAILY Qty: 30 RF: 2 Centrum Silver 400-250 mcg tablet,chewable 1 tab PO DAILY Qty: 30 RF: 0 omega-3 fatty acids 1,000 mg capsule 1,000 mg PO DAILY Qty: 30 RF: 0 Glucosamine Complex-MSM capsule 1 cap PO DAILY Qty: 90 RF: 0 Xarelto 20 mg tablet 20 mg PO QPM RF: 0 diclofenac sodium 1 % Gel 2 g TOPICAL UD PRN (Reason: Pain) RF: 0 metoprolol succinate 50 mg tablet extended release 24 hr 50 mg PO QAM RF: 0 ammonium lactate 12 % cream 1 appln TOP QPM RF: 0 vitamin B complex Capsule 1 cap PO DAILY RF: 0 finasteride 5 mg tablet 5 mg PO QPM RF: 0 diphenhydramine-acetaminophen [Acetaminophen PM] 25-500 mg Tablet 1 tab PO HS PRN (Reason: Pain) RF: 0 Referrals Referrals: Kyle Nolan MD [Primary Care Provider] - Discharge Problem: Fall Qualifiers: Encounter type: initial encounter Qualified Code(s): W19.XXXA - Unspecified fall, initial encounter Pressure ulcer of back Qualifiers: Pressure injury stage: stage 2 Qualified Code(s): L89.102 - Pressure ulcer of unspecified part of back, stage 2 Rhabdomyolysis Qualifiers: Rhabdomyolysis type: traumatic Encounter type: initial encounter Qualified Code(s): T79.6XXA - Traumatic ischemia of muscle, initial encounter Dyspnea Qualifiers: Dyspnea type: shortness of breath Qualified Code(s): R06.02 - Shortness of breath
[2020-05-08 18:46] LABS: INR 1.2 (0.9-1.1); Prothrombin Time 12.4 Seconds (9.0-12.0)
[2020-05-08 18:52] LABS: Albumin Level 2.7 gm/dl (3.4-5.0); BUN Creatinine Ratio 22.4 (10-20); Calcium 8.9 mg/dl (8.5-10.1); Creatinine Clr Calc Pharmacy 33.3 ml/min; Est GFR (African American) 41.7; Magnesium 2.8 mg/dl (1.8-2.4); Potassium 4.5 mmol/L (3.5-5.1)
[2020-05-08] MEDS ORDERED: LACTATED RINGER'S 1,000 ML IV ONE (19:09)
[2020-05-08 19:14] LABS: Appearance Urine Turbid (Clear); Bacteria Urine Automated Negative (Negative); Blood Urine 3+ (Negative); Color Urine Dark Yellow; Epithelial Cell Urine Auto >30 /lpf (0-5); Glucose Urine UA Negative (Negative); Ketones Urine Trace (Negative); Leukocyte Esterase Urine Negative (Negative); Nitrite Urine Negative (Negative); Protein Urine 2+ (Negative); Specific Gravity Urine 1.028 (1.000-1.030); Urobilinogen Urine Negative (Negative)
--- NOTE | 2020-05-08 19:15 | XRay Report ---
XR chest 1V portable HISTORY: Fall. weakness COMPARISON: Chest 08/27/2019. FINDINGS: The lungs are clear. The heart remains borderline enlarged. Dense mitral annulus calcificat ions are again noted. Left-sided single lead pacemaker. No pleural effusions. No pneumothorax. Old, h ealed left sided rib fractures. An aortic valve stent remains unchanged in position. IMPRESSION: No significant change compared to the prior study. No acute process. ACT 112: Negative or not required by law. Electronically signed by: Wicho Yip M.D. 05/08/2020 7:13 PM
[2020-05-08 19:16] LABS: Bilirubin Urine Negative (Negative); Ictotest Urine Negative (Negative)
--- NOTE | 2020-05-08 19:16 | XRay Report ---
XR pelvis 1-2V routine CLINICAL HISTORY: fall COMPARISON STUDY: Right hip 11/26/2017. FINDINGS: There is again noted a right total arthroplasty. Hardware appears intact. The bones are ost eopenic. No acute fracture or dislocation within the pelvis or hips. 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 The sacrum appears intact. IMPRESSION: No fracture or dislocation within the pelvis or hips. ACT 112: Negative or not required by law. Electronically signed by: Wicho Yip M.D. 05/08/2020 7:15 PM
[2020-05-08 19:18] LABS: Albumin Globulin Ratio 0.5 (0.9-2); Bilirubin,Total 1.5 mg/dl (0.2-1); Globulin 5.2 gm/dl (2.5-4.0); Thyroid Stimulating Hormone 0.508 uIu/ml (0.300-4.500); Total Protein 7.9 gm/dl (6.4-8.2); Troponin I 0.528 ng/ml (0-0.045)
[2020-05-08 19:19] LABS: Hematocrit (blood only) 45.6 % (42-52); Hemoglobin 15.6 g/dL (14.0-18.0); Mean Corpuscular Hemoglobin 30.4 pg (25-34); Mean Corpuscular Hgb Conc 34.2 g/dL (32-36); Mean Corpuscular Volume 88.7 fL (80-100); Mean Platelet Volume 11.1 fL (7.4-10.4); Platelet Count 87 K/uL (130-400); RDW Coefficient of Variation 13.6 % (11.5-14.5); Red Blood Count 5.14 M/uL (4.7-6.1); White Blood Count 6.66 K/uL (4.8-10.8)
[2020-05-08 19:23] LABS: Basophils # (auto) 0.03 K/uL (0-0.2); Basophils % (auto) 0.5 %; Giant Platelets 1+; Immature Granulocytes # (auto) 0.04 K/uL (0.00-0.02); Immature Granulocytes % (auto) 0.6 %; Monocytes # (auto) 0.46 K/uL (0.11-0.59); Monocytes % (auto) 6.9 %; Neutrophils # (auto) 4.93 K/uL (1.4-6.5); Platelet Estimate Decreased (Normal)
[2020-05-08 19:25] LABS: Anaplasmosis Smear(Rpt to DOH) Pos for Anaplasma
[2020-05-08] MEDS ORDERED: DOXYCYCLINE HYCLATE 100 MG in DEXTROSE 5% 100 ML IV STA (19:27)
[2020-05-08 19:29] LABS: Cast Urine Automated >30 /lpf (0-5); Granular Casts Urine >30 /lpf (0)
--- NOTE | 2020-05-08 19:38 | CT Scan Report ---
HEAD CT NONCONTRAST CT DOSE: HISTORY: fall TECHNIQUE: Multiaxial CT images of the head were performed without the use of intravenous contrast. A utomated exposure control was utilized for this study. A dose lowering technique was utilized adheri ng to the principles of ALARA. Comparison: Head CT 11/26/2017. Findings: Chronic aspiration of a few right mastoid air cells. The paranasal sinuses demonstrate mild mucosal thickening within the ethmoid air cells. The left mastoid air cells are clear. Mild motion a rtifact. The calvarium and skull base are intact. There is no mass, hematoma, midline shift, acute in farct. White matter hypodensity is nonspecific but suggestive of microvascular ischemic change. The v entricles and sulci demonstrate mild age-related involutional changes. Scattered punctate parenchymal calcifications. This remains unchanged. Impression: No significant change compared to the prior study. No acute intracranial abnormality. ACT 112: Negative or not required by law. Electronically signed by: Wicho Yip M.D. 05/08/2020 7:37 PM
--- NOTE | 2020-05-08 19:50 | CT Scan Report ---
CERVICAL SPINE CT, THORACIC SPINE CT, LUMBAR SPINE CT CT DOSE: 2681.65 mGy.cm HISTORY: Neck and back pain. fall TECHNIQUE: Multiaxial CT images of the cervical, thoracic, lumbar spine were performed and reformatte d in the sagittal and coronal plane without the use of contrast. A dose lowering technique was utili zed adhering to the principles of ALARA. COMPARISON: None. FINDINGS: Cervical spine CT: No fracture or subluxation. Prevertebral soft tissues and the C1-C2 interval are i ntact. Severe disc space narrowing at C5-C7 with endplate osteophytes. Moderate facet degenerative ch anges throughout the majority of the cervical spine. No pneumothorax. Thoracic spine CT: No fracture or subluxation. Mild degenerative disc disease throughout the thoracic spine. Paravertebral soft tissues are unremarkable. Lumbar spine CT: Mild levoscoliosis. Severe facet degenerative changes throughout the majority of the lumbar spine. No fracture or subluxation. Mild disc space narrowing at L2-L3, L3-L4, L4-5. IMPRESSION: No fractures within the cervical, thoracic, lumbar spine. ACT 112: Negative or not required by law. Electronically signed by: Wicho Yip M.D. 05/08/2020 7:48 PM
--- NOTE | 2020-05-08 20:01 | CT Scan Report ---
CT chest wo con, CT abd pelvis wo con CT DOSE: HISTORY: fall TECHNIQUE: Multiaxial CT images of the chest were performed without contrast. Multiaxial CT images of the abdomen and pelvis are also performed without the use of intravenous contrast. A dose lowering t echnique was utilized adhering to the principles of ALARA. COMPARISON: Abdomen and pelvis CT 11/01/2014. FINDINGS: Chest CT: No acute fractures within the visualized osseous structures of the chest. Old, healed left- sided rib fractures are noted. Mild calcified plaque within the normal caliber thoracic aorta. An aor tic valve stent is noted. Dense mitral annulus calcifications. Left-sided single lead pacemaker. The heart is top normal in size. No pleural or pericardial effusions. No mediastinal hematoma. No mediast inal or hilar lymphadenopathy. Normal caliber esophagus. Bilateral gynecomastia. No pneumothorax. Mil d respiratory motion artifact. No focal lung consolidations. Trace mucoid material within the proxima l trachea. Abdomen/pelvis CT: No pneumoperitoneum. No pneumatosis. There is a right total hip arthroplasty. Mode rate osteoarthritis within the left hip. No acute fractures within the visualized osseous structures of the abdomen and pelvis. Prior right inguinal hernia repair. The unenhanced liver, gallbladder, silveira creas, spleen, and adrenal glands are unremarkable. No retroperitoneal hematoma or lymphadenopathy. D eep pelvic structures are partially obscured by the metallic artifact within the right hip prosthesis . The bladder is decompressed by a Mcneill catheter. No renal stones or hydronephrosis. Mild bilateral perinephric edema is likely chronic. Focal scarring within the left kidney. Colonic diverticulosis. S uboptimal evaluation for bowel pathology due to the lack of intravenous and oral contrast. However, t here is no definite bowel wall thickening or obstruction. IMPRESSION: 1. No acute traumatic process within the chest, abdomen, or pelvis. 2. Additional findings as described above. ACT 112: Negative or not required by law. Electronically signed by: Wicho Yip M.D. 05/08/2020 8:00 PM
[2020-05-08] MEDS ORDERED: Heparin IV Low Dose *NO* Bolus IV ONE (20:09)
[2020-05-08 20:11] LABS: Partial Thromboplastin Ratio 1.2; Partial Thromboplastin Time 33.1 Seconds (21.0-31.0)
[2020-05-08] MEDS: HEPARIN SODIUM/DEXTROSE 25,000 UNITS/500 ML BAG IV SCH (20:26)
[2020-05-08 21:34] LABS: Base Excess VBG -3.4 mEq/L; HCO3 VBG 21 mmol/L; PCO2 VBG 37 mmHg (38-50); PO2 VBG 31 mmHg; pH VBG 7.38 (7.36-7.41)
[2020-05-08 21:35] LABS: Oxygen Saturation VBG < 60.0 %
--- NOTE | 2020-05-08 21:42 | History & Physical Report ---
Date of Service May 08, 2020 Assessment & Plan (1) Fall: 79 yo M with PMH Chronic Afib on xarelto, BPH w/ urinary obstruction/LUTS who was found down at home by neighbor/EMS after ~3 days. 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 Pathology report to follow. - Pt has not been hiking or around ticks, however he has multiple pets at home. - Received 1 dose Doxycycline in ED, 100 mg BID x 10 days ordered for course completion. 2) Fall 2/ unknown cause (Cardiac syncope?) - cardiology telehealth note from 03/11/20 notes frequent episodes of dizziness and syncope despite TAVR replacement in 06/2019 and dual chamber pacemaker. Described as orthostatic in nature. - preserved left ventricular systolic function with EF 55-60% and severe left ventricular hypertrophy - troponin elevated on admission at 0.528; repeat ordered for 00:30 6/29 and 6:30 6:29. - EKG: aflutter, widened QRS with left bundle branch block. No ST segment changes. - Cervical, Thoracic, Lumbar spine CT showed various levels of osteophytes and degenerative changes, however no fractures. - Head CT noncon negative for mass, hematoma, midline shift, acute infarct. Similar to previous study. - Chest CT showed no focal consolidations, tracheal mucus buildup - mental status improving with hydration, airway support - UTI less likely with negative nitrites, LE, bacteria 3) Rhabdomyolysis 2/2 Fall - CK 2470 on admission. Repeat ordered for AM. - IV NS running at 1.5x maintenance (179 ml/Hr) - Lactic acid elevated at 3.6 on admission, improved to 2.8 with fluids. - repeat lactic acid ordered for AM. 4) MARCUS 2/2 Rhabdo, Fall - BUN 40, Cr 1.77 - IVNS as above - jackson in place - repeat CMP in AM - UA showed dirty urine with blood and casts, no nitrites, LE or bacteria. likely secondary to dehydration. - urine culture pending 5)Altered mental status, improving - VB.38/37/31/21 - improving with hydration, appropriate aeration - Head CT negative for acute bleed, midline shift - will continue to monitor - fall precautions - aspiration precautions, speech eval placed, NPO 6) AFib, Aflutter with Medtronic Pacemaker placement - chronic, on Xarelto 20 mg daily 7) Pressure ulcer of back - likely secondary to being down for multiple days - wound care consult - pressure dressings as needed 8) Elevated Liver enzymes - secondary to anaplasmosis vs. alcohol? - AST 166, Alt 84 fits 2:1 expected of alcohol abuse. - previous levels normal in 2018 - Alk phos normal at 59. would expect elevation with Anaplasmosis causing liver damage - repeat CMP in AM DVT ppx: on xarelto FEN/GI: NPO until sign off by speech eval, IVNS 179 ml/hr Code Status: full code Dispo: PCU (2) Anaplasmosis: (3) Pressure ulcer of back: (4) MARCUS (acute kidney injury): (5) Elevated LFTs: (6) Rhabdomyolysis: (7) Dyspnea: (8) BPH w urinary obs/LUTS: (9) Atrial fibrillation: History of Present Illness 79 yo M who was found down at home after neighbor was concerned his mail was piling up at [employer] for multiple days. HPI limited by patient's confusion and poor memory. He denies recalling an inciting incident that led to him falling at home. He denies any pain, but says his chest tightness is improving. He states he was coughing at home but doesn't remember for how long this has been an issue. He denies any nausea or vomiting, trouble breathing (on 5L oxymask at time of interview). A&O to person and year. States his full name appropriately, is aware that it is 2019 and Jovani is president, thought he was in [facility]. Primary Care Provider: Kyle Nolan MD Allergies Allergy/AdvReac Type Severity Reaction Status Date / Time No Known Allergies Allergy Verified 05/08/20 18:15 Home Medications Home Medications Medication Instructions Recorded Confirmed Type biotin 2,500 mcg capsule 2,500 mcg PO DAILY #30 cap 07/01/19 05/08/20 Rx tgnerjaarcw-ehg-wduorwtst-vitC 1 cap PO DAILY #90 cap 07/01/19 05/08/20 Rx multivit with min-folic 1 tab PO DAILY #30 tab 07/01/19 05/08/20 Rx acid-lutein 400 mcg-250 mcg chewable tablet omega-3 fatty acids 1,000 mg 1,000 mg PO DAILY #30 cap 07/01/19 05/08/20 Rx capsule Xarelto 20 mg PO QPM 01/01/20 05/08/20 History diclofenac sodium 2 g TOPICAL UD PRN 01/01/20 05/08/20 History metoprolol succinate 50 mg 50 mg PO QAM tab 03/22/20 05/08/20 History tablet,extended release 24 hr ammonium lactate 1 appln TOP QPM 04/22/20 05/08/20 History diphenhydramine-acetaminophen 1 tab PO HS PRN 04/22/20 05/08/20 History [Acetaminophen PM] finasteride 5 mg PO QPM 04/22/20 05/08/20 History vitamin B complex 1 cap PO DAILY 04/22/20 05/08/20 History Past Med/Surg History Social History Preferred Language: Djiboutian Communication Ability: Effective Visual Impairment: Limited Hearing Ability: Hard of Hearing 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 Beliefs That Will Affect Care: None marital status: Single Current Living Situation: Alone current occupational status: retired Other Information That Helps Us Care for You: No Feels Safe at Home: No Any Concerns about Your Family Situation: No Would You Like to Speak to Someone About Your Situation: No Smoking Status: Former smoker Tobacco Type: cigarettes ; Age Started Using Tobacco: 19 ; Age Quit Using Tobacco: 64 ; packs per day: 0.5 ; Cigarettes Per Day: 2003 ; Do You Dip or Chew Tobacco: No ; Second Hand Exposure: No ; Hx Alcohol Use: No Hx Substance Use: No Childhood Exposure to Second-Hand Smoke: Yes caffeine: Yes during the past year weight has: decreased > 10 lbs Dental Care, Regularly: Yes Physical Activity Frequency: 1-2 Times per Week Seatbelt Use: always Sunscreen Use: Yes Review of Systems Review of Systems: Unobtainable due to cognitive status Physical Exam Physical Exam: Constitutional: thin, breathing with some difficulty Eyes: eyes closed in bed, opens to command Mouth: thick secretions, no oral swelling Cardiac: irregularly irregular, regular rate, no murmurs or gallops noted Pulm: good air movement throughout both lungs, diffuse transmitted upper airway sounds vs. rhonchorous breath sounds, no focal crackles or wheezes noted Abd: soft, nontender, nondistended, normal bowel sounds, no rebound or guarding Extremities: 2+ peripheral pulses, no edema, no calf tenderness bilaterally Neuro: no focal deficits, moving all 4 limbs, A&Ox3 Results & Data Results & Data ([facility]) Vital Signs (Past 12 Hours) Vital Signs Temp Pulse Pulse Resp BP BP Pulse Ox 05/08/20 20:30 67 36 H 158/79 H 98 05/08/20 20:15 66 38 H 157/72 H 99 05/08/20 19:21 69 38 H 166/76 H 98 05/08/20 18:31 69 147/90 H 95 05/08/20 18:22 99 05/08/20 18:15 69 162/83 H 99 05/08/20 18:06 68 38 H 162/83 H 99 05/08/20 17:43 37.5 C 68 36 H 155/77 H 95 Laboratory Results WBC 6.66 K/uL (4.8-10.8) 05/08/20 18:25 RBC 5.14 M/uL (4.7-6.1) 05/08/20 18:25 Hgb 15.6 g/dL (14.0-18.0) 05/08/20 18:25 POC Hgb 17.0 g/dl (14.0-18.0) 05/08/20 18:12 Hct 45.6 % (42-52) 05/08/20 18:25 POC Hct 50 % (42-52) 05/08/20 18:12 MCV 88.7 fL (80-100) 05/08/20 18:25 MCH 30.4 pg (25-34) 05/08/20 18:25 MCHC 34.2 g/dL (32-36) 05/08/20 18:25 RDW Std Deviation 44.0 fL (36.4-46.3) 05/08/20 18:25 RDW Coeff of Shahid 13.6 % (11.5-14.5) 05/08/20 18:25 Plt Count 87 K/uL (130-400) L 05/08/20 18:25 MPV 11.1 fL (7.4-10.4) H 05/08/20 18:25 Immature Gran % (Auto) 0.6 % 05/08/20 18:25 Neut % (Auto) 74.0 % 05/08/20 18:25 Lymph % (Auto) 18.0 % 05/08/20 18:25 Fountain % (Auto) 6.9 % 05/08/20 18:25 Eos % (Auto) 0.0 % 05/08/20 18:25 Baso % (Auto) 0.5 % 05/08/20 18:25 Neut # (Auto) 4.93 K/uL (1.4-6.5) 05/08/20 18:25 Lymph # (Auto) 1.20 K/uL (1.2-3.4) 05/08/20 18:25 Fountain # (Auto) 0.46 K/uL (0.11-0.59) 05/08/20 18:25 Eos # (Auto) 0.00 K/uL (0-0.5) 05/08/20 18:25 Baso # (Auto) 0.03 K/uL (0-0.2) 05/08/20 18: Immature Gran # (Auto) 0.04 K/uL (0.00-0.02) H 05/08/20 18:25 Platelet Estimate Decreased (Normal) L 05/08/20 18:25 Giant Platelets 1+ 05/08/20 18:25 PT 12.4 Seconds (9.0-12.0) H 05/08/20 18:25 INR 1.2 (0.9-1.1) H 05/08/20 18:25 APTT 33.1 Seconds (21.0-31.0) H 05/08/20 18:25 PTT Ratio 1.2 05/08/20 18:25 VBG pH 7.38 (7.36-7.41) 05/08/20 21: VBG pCO2 37 mmHg (38-50) L 05/08/20 21: VBG pO2 31 mmHg 05/08/20 21: VBG HCO3 21 mmol/L 05/08/20 21: VBG O2 Saturation < 60.0 % 05/08/20 21: VBG Base Excess -3.4 mEq/L 05/08/20 21: Barometric Pressure 727.3 mm/Hg 05/08/20 21: POC Sodium 135 mmol/L (135-144) 05/08/20 18:12 Sodium 137 mmol/L (136-145) 05/08/20 18:25 POC Potassium 5.6 mmol/L (3.3-5.0) H 05/08/20 18:12 Potassium 4.5 mmol/L (3.5-5.1) 05/08/20 18:25 POC Chloride 108 mmol/L (101-112) 05/08/20 18:12 Chloride 105 mmol/L (98-107) 05/08/20 18:25 Carbon Dioxide 20 mmol/L (21-32) L 05/08/20 18:25 POC Total CO2 18 mmol/L (24-31) L 05/08/20 18:12 Anion Gap 12.0 (3-11) H 05/08/20 18:25 POC Anion Gap 16.0 mmol/L (16-25) 05/08/20 18:12 POC BUN 43 mg/dl (7-18) H 05/08/20 18:12 BUN 40 mg/dl (7-18) H 05/08/20 18:25 Creatinine 1.77 mg/dl (0.6-1.4) H 05/08/20 18:25 POC Creatinine 1.7 mg/dl (0.6-1.3) H 05/08/20 18:12 Est Cr Clr Drug Dosing 33.3 ml/min 05/08/20 18:25 Est GFR ( Amer) 41.7 05/08/20 18:25 Est GFR (Non-Af Amer) 36.0 05/08/20 18:25 BUN/Creatinine Ratio 22.4 (10-20) H 05/08/20 18:25 Glucose 121 mg/dl (70-99) H 05/08/20 18:25 POC Glucose (other) 133 mg/dl (70-99) H 05/08/20 18:12 Lactate 2.8 mmol/L (0.4-2.0) H* 05/08/20 21:51 Calcium 8.9 mg/dl (8.5-10.1) 05/08/20 18:25 POC Ioniz Calcium Ese 0.97 mmol/l (1.12-1.32) L 05/08/20 18:12 Magnesium 2.8 mg/dl (1.8-2.4) H 05/08/20 18:25 Total Bilirubin 1.5 mg/dl (0.2-1) H 05/08/20 18:25 AST 166 U/L (15-37) H 05/08/20 18:25 ALT 84 U/L (12-78) H 05/08/20 18:25 Alkaline Phosphatase 59 U/L (45-117) 05/08/20 18:25 Total Creatine Kinase 2470 U/L (39-308) H 05/08/20 18:25 Troponin I 0.528 ng/ml (0-0.045) H* 05/08/20 18:25 Total Protein 7.9 gm/dl (6.4-8.2) 05/08/20 18: Albumin 2.7 gm/dl (3.4-5.0) L 05/08/20 18: Globulin 5.2 gm/dl (2.5-4.0) H 05/08/20 18:25 Albumin/Globulin Ratio 0.5 (0.9-2) L 05/08/20 18:25 TSH 0.508 uIu/ml (0.300-4.500) 05/08/20 18:25 Urine Color Dark Yellow 05/08/20 18:25 Urine Appearance Turbid (Clear) A 05/08/20 18:25 Urine pH 5.0 (4.5-7.5) 05/08/20 18:25 Ur Specific [place] 1.028 (1.000-1.030) 05/08/20 18:25 Urine Protein 2+ (Negative) H 05/08/20 18:25 Urine Glucose (UA) Negative (Negative) 05/08/20 18: Urine Ketones Trace (Negative) H 05/08/20 18:25 Urine Blood 3+ (Negative) H 05/08/20 18:25 Urine Nitrite Negative (Negative) 05/08/20 18:25 Urine Bilirubin Negative (Negative) 05/08/20 18:25 Urine Urobilinogen Negative (Negative) 05/08/20 18:25 Ur Leukocyte Esterase Negative (Negative) 05/08/20 18:25 Urine WBC (Auto) 1-5 /hpf (0-5) 05/08/20 18:25 Urine RBC (Auto) 10-30 /hpf (0-4) H 05/08/20 18:25 U Hyaline Cast (Auto) >30 /lpf (0-5) H 05/08/20 18:25 U Epithel Cells (Auto) >30 /lpf (0-5) H 05/08/20 18:25 Urine Bacteria (Auto) Negative (Negative) 05/08/20 18:25 Ur Renal Epithelial Cell Not Reportable 05/08/20 18:25 Granular Casts >30 /lpf (0) H 05/08/20 18:25 Urine Yeast Not Reportable 05/08/20 18:25 Anaplasma Smear See Comment A 05/08/20 18:25 Anaplasma Comment Pos for Anaplasma 05/08/20 18:25 Supervising Physician Co-Signing Physician Notes Patient seen and examined, chart reviewed, case discussed with Dr. Chávez and I agree with her assessment and plan as documented above. Briefly, patient is a 79yo C male found down at home. +Anaplasmosis noted on labs. On arrival he afebrile, HD stable, +tachypneic with notable upper airway noise/secretions. Somnolent but arousable - mental status seems to be improving with administration of IVF. Skin- Stage II decubitus on left shoulder and sacrum HEENT - NC/AT, PERRL, EOMI, MMM, +upper airway gurgling, no stridor Heart - +S1/S2, irregularly irregular, no m/r/g Lungs - no rales/rhonchi/wheezes, +upper airway noise Abd - +BS, soft, NT/ND Ext - no edema, faint petechiae on bilateral LE Neuro - somnolent, arousable, answering questions and following commands, grossly nonfocal Labs and images reviewed, significant for elevated CK, troponin and lactate. Elevated BUN/Cr/AST/ALT/Tbili. Thrombocytopenia Multiple images obtained which revealed no acute fracture or traumatic process of chest/abdomen/pelvis or C/T/L spine. Lung parenchyma clear with no PNA Assessment/Plan - 79yo C male found down at home, +Anaplasmosis suggested by inclusion bodies noted on smear. Multiple laboratory abnormalities as above -IVF, treatment with Doxycycline -Trend lactate, troponin -Abnormalities in LFTs, Platelets, Coags most likely secondary to Anaplasmosis. Continue to follow closely -At present patient is protecting his airway, adequate oxygenation and ventilation on Oxymask - he is quite tachypneic but is not in distress. Aggressive secretion management and pulmonary toilet, flutter valve and humidified O2 -Remainder of plan as above Resident Activity Tracking Resident Involvement: Resident Care Provided Care Provided: Adult Hospital Medicine (1) Pressure ulcer of back Pressure injury stage: stage 2 Qualified Code(s): L89.102 - Pressure ulcer of unspecified part of back, stage 2 (2) Dyspnea Dyspnea type: shortness of breath Qualified Code(s): R06.02 - Shortness of breath (3) Rhabdomyolysis Encounter type: initial encounter Rhabdomyolysis type: traumatic Qualified Code(s): T79.6XXA - Traumatic ischemia of muscle, initial encounter (4) Fall Encounter type: initial encounter Qualified Code(s): W19.XXXA - Unspecified fall, initial encounter
[2020-05-08] MEDS ORDERED: NITROGLYCERIN SL 0.4 MG/TAB TAB SL PRN (22:23)
[2020-05-08] MEDS ORDERED: ALUMINUM/MAGNESIUM SUSP 30 ML UDC PO PRN (22:23)
[2020-05-08] MEDS ORDERED: ONDANSETRON INJ 2 MG/ML 2 ML VIAL IV PRN (22:23)
[2020-05-08] MEDS ORDERED: MoRPHine SULFATE 2 MG/ML CARP IV PRN (22:23)
[2020-05-08] MEDS ORDERED: POLYETHYLENE (MIRALAX) 17 GM PACK PO PRN (22:23)
[2020-05-08] MEDS: SODIUM CHLORIDE 0.9% 1000ML 1,000 ML IV SCH (22:43)
[2020-05-08] MEDS ORDERED: ACETAMINOPHEN 500 MG TAB PO PRN (22:57)
--- NOTE | 2020-05-09 00:15 | Billing Data ---
Date of Service May 08, 2020 Coding Level of Care Code 62185 Initial Inpt Care Lvl 3
[2020-05-09 02:27] LABS: Hematocrit (blood only) 42.9 % (42-52); Hemoglobin 14.1 g/dL (14.0-18.0); Mean Corpuscular Hemoglobin 29.5 pg (25-34); Mean Corpuscular Hgb Conc 32.9 g/dL (32-36); Mean Corpuscular Volume 89.7 fL (80-100); RDW Coefficient of Variation 13.8 % (11.5-14.5); RDW Standard Deviation 45.2 fL (36.4-46.3); Red Blood Count 4.78 M/uL (4.7-6.1); White Blood Count 5.54 K/uL (4.8-10.8)
[2020-05-09 02:29] LABS: Basophils # (auto) 0.02 K/uL (0-0.2); Basophils % (auto) 0.4 %; Immature Granulocytes # (auto) 0.02 K/uL (0.00-0.02); Immature Granulocytes % (auto) 0.4 %; Lymphocytes % (auto) 19.9 %; Mean Platelet Volume 11.3 fL (7.4-10.4); Monocytes # (auto) 0.33 K/uL (0.11-0.59); Neutrophils # (auto) 4.07 K/uL (1.4-6.5); Neutrophils % (auto) 73.3 %; Platelet Count 74 K/uL (130-400)
[2020-05-09 02:43] LABS: Albumin Level 2.2 gm/dl (3.4-5.0); BUN Creatinine Ratio 25.6 (10-20); Creatinine Clr Calc Pharmacy 34.4 ml/min; Est GFR (African American) 43.5; Est GFR (Non-African American) 37.5; Potassium 4.4 mmol/L (3.5-5.1)
[2020-05-09 02:47] LABS: Partial Thromboplastin Ratio 2.3
[2020-05-09 02:52] LABS: Partial Thromboplastin Time 64.4 Seconds (21.0-31.0)
[2020-05-09 02:53] LABS: Albumin Globulin Ratio 0.5 (0.9-2); Bilirubin,Total 1.4 mg/dl (0.2-1); Globulin 4.3 gm/dl (2.5-4.0); Total Protein 6.5 gm/dl (6.4-8.2)
[2020-05-09] MEDS: SODIUM CHLORIDE 0.9% 1000ML 1,000 ML IV SCH ×4 (03:49→20:45)
[2020-05-09] MEDS ORDERED: GLUCOSAMINE MSM MAGNESIUM VITC PO SCH (09:00)
[2020-05-09] MEDS ORDERED: NON-FORMULARY MEDICATION (Biotin 2,500 MCG) PO SCH (09:00)
--- NOTE | 2020-05-09 09:23 | Electrocardiogram Report ---
Test Reason : Blood Pressure : / mmHG Vent. Rate : 070 BPM Atrial Rate : 047 BPM P-R Int : 000 ms QRS Dur : 134 ms QT Int : 468 ms P-R-T Axes : 000 -29 171 degrees QTc Int : 505 ms Atrial flutter with variable A-V block Left bundle branch block Abnormal ECG When compared with ECG of 19-APR-2017 11:13, Left bundle branch block now complete Otherwise no significant change Confirmed by Acosta Kim ([id number]) on 05/09/2020 9:23:14 AM Referred By: REFERRED SELF Confirmed By:Acosta Kim
[2020-05-09] MEDS: VITAMIN B COMPLEX TAB PO SCH (09:43)
[2020-05-09] MEDS: OMEGA-3 (PURIFIED FISH OIL) 1 GM CAP PO SCH (09:43)
[2020-05-09] MEDS: CEROVITE ADV FORMULA TAB PO SCH (09:43)
[2020-05-09] MEDS: METOPROLOL SUCC 50MG EXT REL TAB PO SCH (09:43)
[2020-05-09] MEDS: DOXYCYCLINE HYCLATE 100 MG in DEXTROSE 5% 100 ML IV SCH ×2 (09:44→20:43)
[2020-05-09] MEDS: AMMONIUM LACTATE 12% LOTION 225 GM BTL EXT SCH (20:43)
[2020-05-09] MEDS: FINASTERIDE 5 MG TAB PO SCH (20:44)
[2020-05-09] MEDS: ACETAMINOPHEN 325 MG TAB PO PRN (20:44)
--- NOTE | 2020-05-09 21:34 | Hospitalist Progress Note ---
Date of Service May 09, 2020 Assessment & Plan (1) Fall: 79 yo M with PMH Chronic Afib on xarelto, BPH w/ urinary obstruction/LUTS who was found down at home by neighbor/EMS after ~3 days. 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 Pathology report to follow. - Pt has not been hiking or around ticks, however he has multiple pets at home. - Received 1 dose Doxycycline in ED, 100 mg BID x 10 days ordered for course completion. 2) Fall 2/ unknown cause (Cardiac syncope?)- - May be secondary to problem number one. - unsure as to the cause of his - cardiology telehealth note from 03/11/20 notes frequent episodes of dizziness and syncope despite TAVR replacement in 06/2019 and dual chamber pacemaker. Described as orthostatic in nature. - preserved left ventricular systolic function with EF 55-60% and severe left ventricular hypertrophy - troponin elevated on admission at 0.528; repeat ordered for 00:30 05/09 and 6:30 :. - EKG: aflutter, widened QRS with left bundle branch block. No ST segment changes. - Cervical, Thoracic, Lumbar spine CT showed various levels of osteophytes and degenerative changes, however no fractures. - Head CT noncon negative for mass, hematoma, midline shift, acute infarct. Similar to previous study. - Chest CT showed no focal consolidations, tracheal mucus buildup - mental status improving with hydration, airway support - UTI less likely with negative nitrites, LE, bacteria 3) Rhabdomyolysis 2/2 Fall - CK 2470 on admission. will repeat in AM. - will continue IVF. - Lactic acid elevated at 3.6 on admission, improved to 2.8 with fluids. - will monitor LACTIC ACID. 4) MARCUS 2/2 Rhabdo, Fall - Creatinine is gradually improving. -likely a product to his anasplasmosis. - UA showed dirty urine with blood and casts, no nitrites, LE or bacteria. likely secondary to dehydration. - urine culture pending 5)Altered mental status, improving - VB.38/37/31/21 - improving with hydration, appropriate aeration - Head CT negative for acute bleed, midline shift - will continue to monitor - fall precautions - aspiration precautions, speech eval placed, NPO 6) AFib, Aflutter with [employer]tr[employer] Pacemaker placement - chronic, on Xarelto 20 mg daily 7) Pressure ulcer of back - likely secondary to being down for multiple days - wound care consult - pressure dressings as needed 8) Elevated Liver enzymes - secondary to anaplasmosis vs. alcohol? - AST 166, Alt 84 fits 2:1 expected of alcohol abuse. - previous levels normal in 2018 - Alk phos normal at 59. would expect elevation with Anaplasmosis causing liver damage - repeat CMP in AM DVT ppx: on xarelto Code Status: full code Dispo: PCU (2) Anaplasmosis: (3) Pressure ulcer of back: (4) MARCUS (acute kidney injury): (5) Elevated LFTs: (6) Rhabdomyolysis: (7) Dyspnea: (8) BPH w urinary obs/LUTS: (9) Atrial fibrillation: Admission and Anticipated Discharge Date Admission Date: May 08, 2020 Subjective 79 yo male reports no new symptoms. He states he normally is not on any oxygen at home, currently requires 6 liters of oxygen. He is a poor historian and does not recall exactly why he is here. Review of Systems Review of Systems: All systems reviewed & are unremarkable except as noted in HPI & below Physical Exam Physical Exam: Constitutional: thin, appears to be breathing well. Eyes: eyes closed in bed, opens to command Mouth: thick secretions, no oral swelling Cardiac: irregularly irregular, regular rate, no murmurs or gallops noted Pulm: good air movement throughout both lungs, improved breath sounds, no focal crackles or wheezes noted Abd: soft, nontender, nondistended, normal bowel sounds, no rebound or guarding Extremities: 2+ peripheral pulses, no edema, no calf tenderness bilaterally Neuro: no focal deficits, moving all 4 limbs, A&Ox2 to person and place. Results & Data Results & Data ([facility]) Vital Signs (Past 12 Hours) Vital Signs Temp Pulse Pulse Resp BP Pulse Ox 05/09/20 19:22 36.7 C 60 23 111/67 98 05/09/20 16:00 60 05/09/20 15:23 36.6 C 60 23 110/73 98 05/09/20 11:40 36.8 C 86 16 132/64 94 PG Care Time/CCT Total # of Minutes Spent Total Time Spent with Patient: Total time spent is greater than 50% in coordination of care (as documented) at patient's floor/unit and/or counseling patient: Coding Level of Care Code 63797 Subseq Hosp Care Lvl 3 Diagnoses Fall W19.XXXA Encounter type: initial encounter Anaplasmosis A77.49 Pressure ulcer of back L89.102 Pressure injury stage: stage 2 MARCUS (acute kidney injury) N17.9 Elevated LFTs R79.89 Rhabdomyolysis T79.6XXA Encounter type: initial encounter Rhabdomyolysis type: traumatic Dyspnea R06.02 Dyspnea type: shortness of breath BPH w urinary obs/LUTS N40.1; N13.8 Atrial fibrillation I48.91 Time Spent (min) 35 (1) Pressure ulcer of back Pressure injury stage: stage 2 Qualified Code(s): L89.102 - Pressure ulcer of unspecified part of back, stage 2 (2) Dyspnea Dyspnea type: shortness of breath Qualified Code(s): R06.02 - Shortness of breath (3) Rhabdomyolysis Encounter type: initial encounter Rhabdomyolysis type: traumatic Qualified Code(s): T79.6XXA - Traumatic ischemia of muscle, initial encounter (4) Fall Encounter type: initial encounter Qualified Code(s): W19.XXXA - Unspecified fall, initial encounter
[2020-05-09] MEDS: HEPARIN SODIUM/DEXTROSE 25,000 UNITS/500 ML BAG IV SCH (23:22)
[2020-05-10] MEDS: SODIUM CHLORIDE 0.9% 1000ML 1,000 ML IV SCH ×2 (02:22→10:38)
[2020-05-10 05:31] LABS: Partial Thromboplastin Ratio 1.9
[2020-05-10 05:34] LABS: Partial Thromboplastin Time 51.7 Seconds (21.0-31.0)
[2020-05-10] MEDS: DOXYCYCLINE HYCLATE 100 MG in DEXTROSE 5% 100 ML IV SCH ×2 (07:38→20:54)
[2020-05-10] MEDS: CEROVITE ADV FORMULA TAB PO SCH (07:42)
[2020-05-10] MEDS: METOPROLOL SUCC 50MG EXT REL TAB PO SCH (07:42)
[2020-05-10] MEDS: VITAMIN B COMPLEX TAB PO SCH (07:42)
[2020-05-10] MEDS: OMEGA-3 (PURIFIED FISH OIL) 1 GM CAP PO SCH (07:42)
[2020-05-10 09:59] LABS: Hematocrit (blood only) 37.5 % (42-52); Hemoglobin 12.1 g/dL (14.0-18.0); Mean Corpuscular Hemoglobin 29.3 pg (25-34); Mean Corpuscular Hgb Conc 32.3 g/dL (32-36); Mean Corpuscular Volume 90.8 fL (80-100); Mean Platelet Volume 12.2 fL (7.4-10.4); Platelet Count 68 K/uL (130-400); RDW Coefficient of Variation 14.2 % (11.5-14.5); RDW Standard Deviation 46.6 fL (36.4-46.3); Red Blood Count 4.13 M/uL (4.7-6.1); White Blood Count 5.99 K/uL (4.8-10.8)
[2020-05-10 10:00] LABS: Basophils # (auto) 0.06 K/uL (0-0.2); Dohle Bodies 1+; Echinocytes 1+; Eosinophils # (auto) 0.01 K/uL (0-0.5); Eosinophils % (auto) 0.2 %; Immature Granulocytes # (auto) 0.01 K/uL (0.00-0.02); Immature Granulocytes % (auto) 0.2 %; Lymphocytes # (auto) 2.46 K/uL (1.2-3.4); Lymphocytes % (auto) 41.1 %; Monocytes # (auto) 0.51 K/uL (0.11-0.59); Monocytes % (auto) 8.5 %; Neutrophils # (auto) 2.94 K/uL (1.4-6.5); Platelet Estimate Decreased (Normal)
[2020-05-10 10:06] LABS: Albumin Level 1.9 gm/dl (3.4-5.0); BUN Creatinine Ratio 30.3 (10-20); Bilirubin Direct 0.2 mg/dl (0-0.2); Calcium 7.8 mg/dl (8.5-10.1); Creatinine Clr Calc Pharmacy 37.3 ml/min; Est GFR (African American) 47.8; Est GFR (Non-African American) 41.3; Potassium 4.1 mmol/L (3.5-5.1)
[2020-05-10 10:14] LABS: Bilirubin,Total 0.6 mg/dl (0.2-1); Total Protein 5.5 gm/dl (6.4-8.2)
--- NOTE | 2020-05-10 13:55 | XRay Report ---
TWO VIEW CHEST CLINICAL HISTORY: Hypoxia. FINDINGS: AP and lateral chest radiographs are compared to chest x-ray and chest CT dated 05/08/2020. The AP views degraded by patient rotation. A single lead cardiac pacemaker is unchanged in position. There is evidence of previous cardiac valve surgery. The mitral annulus is densely calcified. The hea rt is enlarged noting atherosclerotic calcification of the thoracic aorta. Question mild pulmonary va scular congestion. Chronic interstitial thickening is similar to previous. Trace pleural effusions ar e seen on the lateral image with associated atelectasis. No airspace consolidation is seen typical fo r pneumonia. There is no pneumothorax. The skeletal structures are osteopenic. There are healed left- sided rib fractures. Degenerative change is noted throughout the thoracic spine. IMPRESSION: 1. Cardiomegaly and cardiac pacemaker. Prominence of the pulmonary vasculature suggests mild congesti ve change. Clinical correlation will be required. 2. Small pleural effusions are new from previous. ACT 112: Negative or not required by law. Electronically signed by: Philip Pereyra M.D. 05/10/2020 1:54 PM
--- NOTE | 2020-05-10 17:35 | XCELERA ---
[id number]
[2020-05-10] MEDS: AMMONIUM LACTATE 12% LOTION 225 GM BTL EXT SCH (20:34)
[2020-05-10] MEDS: ACETAMINOPHEN 325 MG TAB PO PRN (20:35)
[2020-05-10] MEDS: FINASTERIDE 5 MG TAB PO SCH (20:35)
--- NOTE | 2020-05-10 23:13 | Hospitalist Progress Note ---
Date of Service May 10, 2020 Assessment & Plan (1) Fall: 79 yo M with PMH Chronic Afib on xarelto, BPH w/ urinary obstruction/LUTS who was found down at home by neighbor/EMS after ~3 days. 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 Pathology report to follow. - Pt has not been hiking or around ticks, however he has multiple pets at home. - Received 1 dose Doxycycline in ED, 100 mg BID x 10 days ordered for course completion. candace continue doxycycline while he is here. -will begin to taper him off antibiotics 2) Fall 2/ unknown cause (Cardiac syncope?)- - May be secondary to problem number one. - will consult cardio given his syncope and history of TAVR. 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 Described as orthostatic in nature. - preserved left ventricular systolic function with EF 55-60% and severe left ventricular hypertrophy - troponin elevated on admission at 0.528; repeat ordered for 00:30 05/09 and 6:30 6:. - EKG: aflutter, widened QRS with left bundle branch block. No ST segment changes. - Cervical, Thoracic, Lumbar spine CT showed various levels of osteophytes and degenerative changes, however no fractures. - Head CT noncon negative for mass, hematoma, midline shift, acute infarct. Similar to previous study. - Chest CT showed no focal consolidations, tracheal mucus buildup - mental status improving with hydration, airway support - UTI less likely with negative nitrites, LE, bacteria 3) Rhabdomyolysis 2/2 Fall - CK 2470 on admission. will repeat in AM. - will continue IVF. - Lactic acid elevated at 3.6 on admission, improved to 2.8 with fluids. - lactic acid had been fluctuating while he has arin here. will monitor. 4) MARCUS 2/2 Rhabdo, Fall - Creatinine is gradually improving. -likely a product to his anasplasmosis. - UA showed dirty urine with blood and casts, no nitrites, LE or bacteria. likely secondary to dehydration. - urine culture pending 5)Altered mental status, improving - VB.38/37/31/21 - improving with hydration, appropriate aeration - Head CT negative for acute bleed, midline shift - will continue to monitor - fall precautions - aspiration precautions, speech eval placed, NPO 6) AFib, Aflutter with Medtronic Pacemaker placement - chronic, on Xarelto 20 mg daily 7) Pressure ulcer of back - likely secondary to being down for multiple days - wound care consult - pressure dressings as needed 8) Elevated Liver enzymes - secondary to anaplasmosis vs. alcohol? - AST 166, Alt 84 fits 2:1 expected of alcohol abuse. - previous levels normal in 2018 - Alk phos normal at 59. would expect elevation with Anaplasmosis causing liver damage - will monitor. CMP. DVT ppx: on xarelto Code Status: full code Dispo: PCU (2) Anaplasmosis: (3) Pressure ulcer of back: (4) MARCUS (acute kidney injury): (5) Elevated LFTs: (6) Rhabdomyolysis: (7) Dyspnea: (8) BPH w urinary obs/LUTS: (9) Atrial fibrillation: Admission and Anticipated Discharge Date Admission Date: May 08, 2020 Subjective Patient reports he continues to have SOB when he ambulates. Review of Systems Review of Systems: All systems reviewed & are unremarkable except as noted in HPI & below Physical Exam Physical Exam: Constitutional: thin, appears to be breathing well. Eyes: eyes closed in bed, opens to command Mouth: thick secretions, no oral swelling Cardiac: irregularly irregular, regular rate, no murmurs or gallops noted Pulm: good air movement throughout both lungs, improved breath sounds, no focal crackles or wheezes noted Abd: soft, nontender, nondistended, normal bowel sounds, no rebound or guarding Extremities: 2+ peripheral pulses, no edema, no calf tenderness bilaterally Neuro: no focal deficits, moving all 4 limbs, A&Ox2 to person and place. Results & Data Results & Data ([facility]) Vital Signs (Past 12 Hours) Vital Signs Temp Pulse Resp BP Pulse Ox 05/10/20 23:05 37.5 C 59 L 18 115/65 97 05/10/20 19:49 36.7 C 59 L 17 114/57 L 95 05/10/20 15:05 36.6 C 60 19 120/69 96 05/10/20 11:46 36.9 C 60 16 109/60 94 PG Care Time/CCT Total # of Minutes Spent Total Time Spent with Patient: Total time spent is greater than 50% in coordination of care (as documented) at patient's floor/unit and/or counseling patient: Coding Level of Care Code 49760 Subseq Hosp Care Lvl 3 Diagnoses Fall W19.XXXA Encounter type: initial encounter Anaplasmosis A77.49 Pressure ulcer of back L89.102 Pressure injury stage: stage 2 MARCUS (acute kidney injury) N17.9 Elevated LFTs R79.89 Rhabdomyolysis T79.6XXA Encounter type: initial encounter Rhabdomyolysis type: traumatic Dyspnea R06.02 Dyspnea type: shortness of breath BPH w urinary obs/LUTS N40.1; N13.8 Atrial fibrillation I48.91 Time Spent (min) 35 (1) Fall Encounter type: initial encounter Qualified Code(s): W19.XXXA - Unspecified fall, initial encounter (2) Pressure ulcer of back Pressure injury stage: stage 2 Qualified Code(s): L89.102 - Pressure ulcer of unspecified part of back, stage 2 (3) Rhabdomyolysis Encounter type: initial encounter Rhabdomyolysis type: traumatic Qualified Code(s): T79.6XXA - Traumatic ischemia of muscle, initial encounter (4) Dyspnea Dyspnea type: shortness of breath Qualified Code(s): R06.02 - Shortness of breath
[2020-05-11 05:57] LABS: Partial Thromboplastin Ratio 1.5; Partial Thromboplastin Time 41.2 Seconds (21.0-31.0)
[2020-05-11] MEDS ORDERED: HEPARIN IV BOLUS 3,000 UNITS in SYRINGE 0 ML IV ONE (06:45)
[2020-05-11] MEDS: HEPARIN SODIUM/DEXTROSE 25,000 UNITS/500 ML BAG IV SCH (08:14)
[2020-05-11] MEDS: DOXYCYCLINE HYCLATE 100 MG in DEXTROSE 5% 100 ML IV SCH ×2 (08:15→19:35)
[2020-05-11] MEDS: METOPROLOL SUCC 50MG EXT REL TAB PO SCH (08:19)
[2020-05-11] MEDS: VITAMIN B COMPLEX TAB PO SCH (08:19)
[2020-05-11] MEDS: OMEGA-3 (PURIFIED FISH OIL) 1 GM CAP PO SCH (08:20)
[2020-05-11] MEDS: CEROVITE ADV FORMULA TAB PO SCH (08:20)
--- NOTE | 2020-05-11 09:33 | Cardiology Consultation ---
Date of Consultation Aaron is a very poor historian. He was found down at home by his neighbor who noticed that no one had picked up the mail for a number of days. 911 was called and he was brought to the hospital. He has been visiting his brother in [facility] where there deep in the [place] and it is possible he had a tick bite at that time. He was admitted with anaplasmosis and acute kidney injury along with hypotension. He denies any chest pain or chest pressure today does appear short of breath talking in sentences having just gotten back from the bathroom. He denies any further lightheadedness or dizziness. I tried to determine whether he is having worsening orthostatic symptoms at home but given he is a poor historian it is hard to determine. He denies any lower extremity edema at home or chest pain or chest pressure. He denies any palpitations or fluttering or feeling his heart racing. He is in chronic atrial fibrillation and is VVI paced secondary to complete heart block. He denies any recent fevers or chills he does have some myalgias and arthralgias having been on the floor. He denies any recent worsening of his underlying m yalgias. He denies any constitutional symptoms the rest of a complete her systems otherwise negative May 11, 2020 Assessment & Plan (1) Fall: 79 yo M with PMH Chronic Afib on xarelto, BPH w/ urinary obstruction/LUTS who was found down at home by neighbor/EMS after ~3 days. 1) Anaplasmosis - - Received 1 dose Doxycycline in ED, 100 mg BID x 10 days ordered for course completion. 2) Fall 2/2 unknown cause I would recommend interrogating his device today. On the school lunch monitor he has had no arrhythmias nor pauses. He is VVI paced. There have been no downloads to pacer clinic suggesting that there is something wrong with his device. It is possible he is having further orthostatic symptoms at home which was exacerbated by his anaplasmosis infection. I would reduce his Toprol from 50 mg to 25 mg. If you look at his blood work his albumin is very low which suggests from a dietary standpoint he is not taking well care of himself and then is at risk for getting dehydrated. He is also on finasteride which will lower his blood pressure. He should remain on anticoagulation at this point his heparin can be discontinued he can switch be switched back to Xarelto once his GFR is greater than 50 and we know that his creatinine is stable. I would stop his IV fluids at this point as he is starting the third space. He did undergo echocardiography here in the hospital his LV function is normal he has severe left ventricular hypertrophy and his TAVR valve is functioning normally with an appropriate gradient. 3) Rhabdomyolysis 2/2 Fall 4) MARCUS 2/2 Rhabdo, Fall 5)Altered mental status, improving 6) AFib, Aflutter with Medtronic Pacemaker placement - chronic, on Xarelto 20 mg daily (2) Anaplasmosis: (3) Pressure ulcer of back: (4) MARCUS (acute kidney injury): (5) Elevated LFTs: (6) Rhabdomyolysis: (7) Dyspnea: (8) BPH w urinary obs/LUTS: (9) Atrial fibrillation: History of Present Illness Attending Physician: Steve Ureña Allergies Allergy/AdvReac Type Severity Reaction Status Date / Time No Known Allergies Allergy Verified 05/08/20 18:15 Home Medications Home Medications Medication Instructions Recorded Confirmed Type biotin 2,500 mcg capsule 2,500 mcg PO DAILY #30 cap 07/01/19 05/08/20 Rx avwzukknjsn-saq-qabucjuyf-vitC 1 cap PO DAILY #90 cap 07/01/19 05/08/20 Rx multivit with min-folic 1 tab PO DAILY #30 tab 07/01/19 05/08/20 Rx acid-lutein 400 mcg-250 mcg chewable tablet omega-3 fatty acids 1,000 mg 1,000 mg PO DAILY #30 cap 07/01/19 05/08/20 Rx capsule Xarelto 20 mg PO QPM 01/01/20 05/08/20 History diclofenac sodium 2 g TOPICAL UD PRN 01/01/20 05/08/20 History metoprolol succinate 50 mg 50 mg PO QAM tab 03/22/20 05/08/20 History tablet,extended release 24 hr ammonium lactate 1 appln TOP QPM 04/22/20 05/08/20 History diphenhydramine-acetaminophen 1 tab PO HS PRN 04/22/20 05/08/20 History [Acetaminophen PM] finasteride 5 mg PO QPM 04/22/20 05/08/20 History vitamin B complex 1 cap PO DAILY 06/12/20 06/28/20 History Patient History Medical History BPH (benign prostatic hyperplasia) Cataract History of transesophageal echocardiography ([place]) [place] (hard of hearing) HTN (hypertension) (Chronic) Non-rheumatic aortic stenosis (Inactive) Osteoarthritis Pacemaker 08/2019 - [facility] - Medtronic - last checked 11/2019 - Follows w/ Dr. Ramos Permanent atrial fibrillation (Chronic) Dx 2012 - on xarelto Poor historian Sick sinus syndrome (Chronic) SOB (shortness of breath) on exertion Surgical History H/O hernia repair (Resolved) History of cardiac cath approx 1 year ago- [place] - pre op valve replacement - no stents/angioplasty History of colonoscopy History of cystoscopy History of excision of pilonidal cyst History of hand surgery Rt History of hernia repair x 2 History of hip replacement Right 1988, 1994 History of right cataract surgery History of tonsillectomy Hx of colonoscopy S/P cardiac pacemaker procedure (Inactive) HX OF S/P TAVR (transcatheter aortic valve replacement) (Chronic) 06/2019 Family History Brother Alcohol abuse Bladder cancer Father , AGE 65 Lung cancer History of heart attack Mother , AGE 71 Lung cancer Other No family history of adverse response to anesthesia Denies family history of Ovarian cancer Prostate cancer Breast cancer Colorectal cancer Social History Preferred Language: Kyrgyz Communication Ability: Effective Visual Impairment: Limited Hearing Ability: Hard of Hearing Senior Integration Architect Required: No Beliefs That Will Affect Care: None marital status: Single Current Living Situation: Alone current occupational status: retired Other Information That Helps Us Care for You: No Feels Safe at Home: No Any Concerns about Your Family Situation: No Would You Like to Speak to Someone About Your Situation: No Smoking Status: Former smoker Tobacco Type: cigarettes ; Age Started Using Tobacco: 19 ; Age Quit Using Tobacco: 64 ; packs per day: 0.5 ; Cigarettes Per Day: 2003 ; Do You Dip or Chew Tobacco: No ; Second Hand Exposure: No ; Hx Alcohol Use: No Hx Substance Use: No Childhood Exposure to Second-Hand Smoke: Yes caffeine: Yes during the past year weight has: decreased > 10 lbs Dental Care, Regularly: Yes Physical Activity Frequency: 1-2 Times per Week Seatbelt Use: always Sunscreen Use: Yes Results & Data ([facility]) Vital Signs (Past 12 Hours) Vital Signs Temp Pulse Resp BP Pulse Ox 05/11/20 07:25 36.8 C 59 L 18 115/63 96 05/11/20 03:33 36.4 C L 59 L 16 109/65 99 05/10/20 23:05 37.5 C 59 L 18 115/65 97 He is awake alert and oriented x3. It is interesting that he can remember specific dates but he is an incredibly poor historian HEENT: 2+ carotid upstrokes no evidence of carotid bruits jugular venous pressure appeared normal his sclerae anicteric his hearing is mildly diminished Lungs: Clear to auscultation bilaterally no rales rhonchi or wheezing Heart: Regular rate and rhythm (paced) no appreciable murmurs Abdomen: Soft nontender distended positive bowel sounds Extremities: No clubbing cyanosis he has trace bilateral lower extremity edema Psychiatric: His affect appears at his baseline (1) Fall Encounter type: initial encounter Qualified Code(s): W19.XXXA - Unspecified fall, initial encounter (2) Pressure ulcer of back Pressure injury stage: stage 2 Qualified Code(s): L89.102 - Pressure ulcer of unspecified part of back, stage 2 (3) Rhabdomyolysis Encounter type: initial encounter Rhabdomyolysis type: traumatic Qualified Code(s): T79.6XXA - Traumatic ischemia of muscle, initial encounter (4) Dyspnea Dyspnea type: shortness of breath Qualified Code(s): R06.02 - Shortness of breath
[2020-05-11 13:17] LABS: BUN Creatinine Ratio 30.8 (10-20); Calcium 7.9 mg/dl (8.5-10.1); Creatinine Clr Calc Pharmacy 44.3 ml/min; Est GFR (African American) 58.9; Est GFR (Non-African American) 50.8; Potassium 3.9 mmol/L (3.5-5.1)
[2020-05-11 13:52] LABS: Hematocrit (blood only) 37.9 % (42-52); Hemoglobin 11.9 g/dL (14.0-18.0); Mean Corpuscular Hemoglobin 28.1 pg (25-34); Mean Corpuscular Hgb Conc 31.4 g/dL (32-36); Mean Corpuscular Volume 89.4 fL (80-100); Mean Platelet Volume 13.7 fL (7.4-10.4); Platelet Count 75 K/uL (130-400); RDW Standard Deviation 45.7 fL (36.4-46.3); Red Blood Count 4.24 M/uL (4.7-6.1); White Blood Count 6.56 K/uL (4.8-10.8)
[2020-05-11 14:32] LABS: Partial Thromboplastin Ratio 1.4; Partial Thromboplastin Time 39.8 Seconds (21.0-31.0)
[2020-05-11] MEDS ORDERED: HEPARIN IV BOLUS 4,000 UNITS in SYRINGE 0 ML IV ONE (14:49)
[2020-05-11] MEDS ORDERED: RIVAROXABAN 15 MG TAB PO ONE (15:30)
[2020-05-11] MEDS: FINASTERIDE 5 MG TAB PO SCH (21:07)
[2020-05-11] MEDS: AMMONIUM LACTATE 12% LOTION 225 GM BTL EXT SCH (21:07)
[2020-05-11] MEDS: ACETAMINOPHEN 325 MG TAB PO PRN (21:10)
--- NOTE | 2020-05-11 22:14 | Hospitalist Progress Note ---
Date of Service May 11, 2020 Assessment & Plan (1) Fall: 79 yo M with PMH Chronic Afib on xarelto, BPH w/ urinary obstruction/LUTS who was found down at home by neighbor/EMS after ~3 days. 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 Pathology report to follow. - Pt has not been hiking or around ticks, however he has multiple pets at home. - Received 1 dose Doxycycline in ED, 100 mg BID x 10 days ordered for course completion. candace continue doxycycline while he is here. -will begin to taper him off of IV antibiotics tomorow. 2) Fall 2/ unknown cause (Cardiac syncope?)- - May be secondary to problem number one. - will consult cardio given his syncope and history of TAVR. -Appreciate input from cardio, will hold off IV fluids. 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 Described as orthostatic in nature. - preserved left ventricular systolic function with EF 55-60% and severe left ventricular hypertrophy - troponin elevated on admission at 0.528; repeat ordered for 00:30 6/29 and 6:30 6:29. - EKG: aflutter, widened QRS with left bundle branch block. No ST segment changes. - Cervical, Thoracic, Lumbar spine CT showed various levels of osteophytes and degenerative changes, however no fractures. - Head CT noncon negative for mass, hematoma, midline shift, acute infarct. Similar to previous study. - Chest CT showed no focal consolidations, tracheal mucus buildup - mental status improving with hydration, airway support - UTI less likely with negative nitrites, LE, bacteria 3) Rhabdomyolysis 2/2 Fall - CK 2470 on admission. will repeat in AM. - will continue IVF. - Lactic acid elevated at 3.6 on admission, improved to 2.8 with fluids. - lactic acid had been fluctuating while he has been here. will monitor. 4) MARCUS 2/ Rhabdo, Fall - Creatinine is gradually improving. -likely a product to his anasplasmosis. - UA showed dirty urine with blood and casts, no nitrites, LE or bacteria. likely secondary to dehydration. - urine culture pending 5)Altered mental status, Metabolic encephalopathy , improving - VB.38/37/31/ - improving with hydration, appears near baseline appropriate aeration - Head CT negative for acute bleed, midline shift - will continue to monitor - fall precautions - aspiration precautions, speech eval placed, NPO 6) AFib, Aflutter with Medtronic Pacemaker placement - chronic, on Xarelto 20 mg daily 7) Pressure ulcer of back - likely secondary to being down for multiple days - wound care consult - pressure dressings as needed 8) Elevated Liver enzymes - secondary to anaplasmosis vs. alcohol? - AST 166, Alt 84 fits 2:1 expected of alcohol abuse. - previous levels normal in 2018 - Alk phos normal at 59. would expect elevation with Anaplasmosis causing liver damage - will monitor. CMP. DVT ppx: on xarelto Code Status: full code Dispo: PCU PT/OT recommend SNF placement prior to going home. Patient is concerned about paying his bills at home. will readdress tomorrow (2) Anaplasmosis: (3) Pressure ulcer of back: (4) MARCUS (acute kidney injury): (5) Elevated LFTs: (6) Rhabdomyolysis: (7) Dyspnea: (8) BPH w urinary obs/LUTS: (9) Atrial fibrillation: Admission and Anticipated Discharge Date Admission Date: May 08, 2020 Subjective Patient has no new complaints and appears to be close to his baseline. Review of Systems Review of Systems: All systems reviewed & are unremarkable except as noted in HPI & below Physical Exam Physical Exam: Constitutional: thin, appears to be breathing well. Eyes: eyes closed in bed, opens to command Mouth: thick secretions, no oral swelling Cardiac: irregularly irregular, regular rate, no murmurs or gallops noted Pulm: good air movement throughout both lungs, improved breath sounds, no focal crackles or wheezes noted Abd: soft, nontender, nondistended, normal bowel sounds, no rebound or guarding Extremities: 2+ peripheral pulses, no edema, no calf tenderness bilaterally Neuro: no focal deficits, moving all 4 limbs, A&Ox2 to person and place. Results & Data Results & Data ([facility]) Vital Signs (Past 12 Hours) Vital Signs Temp Pulse Pulse Resp BP Pulse Ox 05/11/20 19:27 37.2 C 60 20 114/67 95 05/11/20 16:00 60 05/11/20 15:32 36.5 C 60 18 122/62 97 05/11/20 11:09 36.4 C L 56 L 19 118/69 95 PG Care Time/CCT Total # of Minutes Spent Total Time Spent with Patient: Total time spent is greater than 50% in coordination of care (as documented) at patient's floor/unit and/or counseling patient: Coding Level of Care Code 61088 Subseq Hosp Care Lvl 2 Diagnoses Fall W19.XXXA Encounter type: initial encounter Anaplasmosis A77.49 Pressure ulcer of back L89.102 Pressure injury stage: stage 2 MARCUS (acute kidney injury) N17.9 Elevated LFTs R79.89 Rhabdomyolysis T79.6XXA Encounter type: initial encounter Rhabdomyolysis type: traumatic Dyspnea R06.02 Dyspnea type: shortness of breath BPH w urinary obs/LUTS N40.1; N13.8 Atrial fibrillation I48.91 Time Spent (min) 25 (1) Pressure ulcer of back Pressure injury stage: stage 2 Qualified Code(s): L89.102 - Pressure ulcer of unspecified part of back, stage 2 (2) Dyspnea Dyspnea type: shortness of breath Qualified Code(s): R06.02 - Shortness of breath (3) Rhabdomyolysis Encounter type: initial encounter Rhabdomyolysis type: traumatic Qualified Code(s): T79.6XXA - Traumatic ischemia of muscle, initial encounter (4) Fall Encounter type: initial encounter Qualified Code(s): W19.XXXA - Unspecified fall, initial encounter
[2020-05-11] MEDS: SODIUM CHLORIDE 0.9% 1000ML 1,000 ML IV SCH (22:57)
[2020-05-12] MEDS: CEROVITE ADV FORMULA TAB PO SCH (08:02)
[2020-05-12] MEDS: METOPROLOL SUCC 25MG EXT REL TAB PO SCH (08:02)
[2020-05-12] MEDS: VITAMIN B COMPLEX TAB PO SCH (08:02)
[2020-05-12] MEDS: OMEGA-3 (PURIFIED FISH OIL) 1 GM CAP PO SCH (08:02)
[2020-05-12] MEDS: DOXYCYCLINE HYCLATE 100 MG in DEXTROSE 5% 100 ML IV SCH ×2 (08:06→20:52)
--- NOTE | 2020-05-12 15:53 | Wound Consultation ---
Date of Consultation May 12, 2020 Assessment & Plan (1) Pressure injury of deep tissue of sacral region: This is a 79-year-old male with deep tissue injuries to his sacral region and in his upper back. These wounds are still evolving. At this point no debridement is required. Wound will be dressed with OPTi foam. We will continue to follow. Please do not hesitate to call with any questions. Thank you for limited chest pain in the care of this patient. If patient is discharged over the weekend will follow-up in the office. (2) Suspected deep tissue injury of unknown depth of upper back: History of Present Illness Reason for Consultation: deep tissue injury Attending Physician: Steve Ureña History of Present Illness This is a 79-year-old male with a history of atrial flutter, BPH and urinary retention who was admitted after fall and found to have rhabdomyolysis. Patient has since developed a deep tissue injury on his sacral region. It is unclear how long patient was down after his fall. Patient has no complaints at this time. Allergies Allergy/AdvReac Type Severity Reaction Status Date / Time No Known Allergies Allergy Verified 05/08/20 18:15 Home Medications Home Medications Medication Instructions Recorded Confirmed Type biotin 2,500 mcg capsule 2,500 mcg PO DAILY #30 cap 07/01/19 05/08/20 Rx dnivbvtqalu-dcy-uemclrwdk-vitC 1 cap PO DAILY #90 cap 07/01/19 05/08/20 Rx multivit with min-folic 1 tab PO DAILY #30 tab 07/01/19 05/08/20 Rx acid-lutein 400 mcg-250 mcg chewable tablet omega-3 fatty acids 1,000 mg 1,000 mg PO DAILY #30 cap 07/01/19 05/08/20 Rx capsule Xarelto 20 mg PO QPM 01/01/20 05/08/20 History diclofenac sodium 2 g TOPICAL UD PRN 01/01/20 05/08/20 History metoprolol succinate 50 mg 50 mg PO QAM tab 03/22/20 05/08/20 History tablet,extended release 24 hr ammonium lactate 1 appln TOP QPM 04/22/20 05/08/20 History diphenhydramine-acetaminophen 1 tab PO HS PRN 04/22/20 05/08/20 History [Acetaminophen PM] finasteride 5 mg PO QPM 04/22/20 05/08/20 History vitamin B complex 1 cap PO DAILY 04/22/20 05/08/20 History Patient History Medical History BPH (benign prostatic hyperplasia) Cataract History of transesophageal echocardiography ([place]) [place] (hard of hearing) HTN (hypertension) (Chronic) Non-rheumatic aortic stenosis (Inactive) Osteoarthritis Pacemaker 08/2019 - [facility] - [employer]tr[employer] - last checked 11/2019 - Follows w/ Dr. Ramos Permanent atrial fibrillation (Chronic) Dx 2012 - on xarelto Alex historian Sick sinus syndrome (Chronic) SOB (shortness of breath) on exertion Surgical History H/O hernia repair (Resolved) History of cardiac cath approx 1 year ago- [place] - pre op valve replacement - no stents/angioplasty History of colonoscopy History of cystoscopy History of excision of pilonidal cyst History of hand surgery Rt History of hernia repair x 2 History of hip replacement Right 1988, 1994 History of right cataract surgery History of tonsillectomy Hx of colonoscopy S/P cardiac pacemaker procedure (Inactive) HX OF S/P TAVR (transcatheter aortic valve replacement) (Chronic) 06/2019 Family History Brother Alcohol abuse Bladder cancer Father , AGE 65 Lung cancer History of heart attack Mother , AGE 71 Lung cancer Other No family history of adverse response to anesthesia Denies family history of Ovarian cancer Prostate cancer Breast cancer Colorectal cancer Social History Preferred Language: Pashto Communication Ability: Effective Visual Impairment: Limited 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 Beliefs That Will Affect Care: None marital status: Single Current Living Situation: Alone current occupational status: retired Other Information That Helps Us Care for You: No Feels Safe at Home: No Any Concerns about Your Family Situation: No Would You Like to Speak to Someone About Your Situation: No Smoking Status: Former smoker Tobacco Type: cigarettes ; Age Started Using Tobacco: 19 ; Age Quit Using Tobacco: 64 ; packs per day: 0.5 ; Cigarettes Per Day: 2003 ; Do You Dip or Chew Tobacco: No ; Second Hand Exposure: No ; Hx Alcohol Use: No Hx Substance Use: No Childhood Exposure to Second-Hand Smoke: Yes caffeine: Yes during the past year weight has: decreased > 10 lbs Dental Care, Regularly: Yes Physical Activity Frequency: 1-2 Times per Week Seatbelt Use: always Sunscreen Use: Yes Review of Systems Review of Systems: All systems reviewed & are unremarkable except as noted in HPI & below Physical Exam Constitutional: WD/WN, vitals as above Eyes: PERRL, conjunctivae normal, anicteric sclerae ENMT: external ear and nose normal, oropharynx normal Ears: no hearing impairment Skin: Wounds measuring as recorded in nursing documentation. There is a large ecchymotic area on patient sacral region that is evolving. Patient also has a evolving deep tissue injury that is ecchymotic on his left upper back. Neurologic: awake; not confused Psychiatric: A+Ox3, euthymic affect Results & Data Vital Signs (Past 12 Hours) Vital Signs Temp Pulse Pulse Resp BP BP Pulse Ox 05/12/20 11:13 36.9 C 60 19 111/71 97 05/12/20 07:40 62 05/12/20 07:05 36.7 C 60 19 109/69 95 05/12/20 04:43 36.8 C 59 L 18 109/67 96 PG Care Time/CCT Total # of Minutes Spent Total Time Spent with Patient: Total time spent is greater than 50% in coordination of care (as documented) at patient's floor/unit and/or counseling patient: Coding Level of Care Code 29509 Inpt Consult Level 2 Diagnoses Pressure injury of deep tissue of sacral region L89.156 Suspected deep tissue injury of unknown depth of upper back R68.89
[2020-05-12] MEDS: RIVAROXABAN 15 MG TAB PO SCH (17:48)
[2020-05-12] MEDS: FINASTERIDE 5 MG TAB PO SCH (20:51)
[2020-05-12] MEDS: AMMONIUM LACTATE 12% LOTION 225 GM BTL EXT SCH (20:51)
[2020-05-12] MEDS: ACETAMINOPHEN 325 MG TAB PO PRN (20:56)
--- NOTE | 2020-05-12 22:28 | Hospitalist Progress Note ---
Date of Service May 12, 2020 Assessment & Plan (1) Anaplasmosis: Fall: 79 yo M with PMH Chronic Afib on xarelto, BPH w/ urinary obstruction/LUTS who was found down at home by neighbor/EMS after ~3 days. 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 Pathology report to follow. - Pt has not been hiking or around ticks, however he has multiple pets at home. - Received 1 dose Doxycycline in ED, 100 mg BID x 10 days ordered for course completion. candace continue doxycycline while he is here. now on PO antibiotics. -Main issue is patient is agreeable to placement, but no beds available at [facility]. 2) Fall 2/2 unknown cause (Cardiac syncope?)- - May be secondary to problem number one. - will consult cardio given his syncope and history of TAVR. -Appreciate input from cardio, will hold off IV fluids. 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 Described as orthostatic in nature. - preserved left ventricular systolic function with EF 55-60% and severe left ventricular hypertrophy - troponin elevated on admission at 0.528; repeat ordered for 00:30 6 and 6:30 6:29. - EKG: aflutter, widened QRS with left bundle branch block. No ST segment changes. - Cervical, Thoracic, Lumbar spine CT showed various levels of osteophytes and degenerative changes, however no fractures. - Head CT noncon negative for mass, hematoma, midline shift, acute infarct. Similar to previous study. - Chest CT showed no focal consolidations, tracheal mucus buildup - mental status improving with hydration, airway support - UTI less likely with negative nitrites, LE, bacteria 3) Rhabdomyolysis 2/2 Fall - CK 2470 on admission. will repeat in AM. - will continue IVF. - Lactic acid elevated at 3.6 on admission, improved to 2.8 with fluids. - lactic acid had been fluctuating while he has been here. will monitor. 4) MARCUS 2/2 Rhabdo, Fall - Creatinine is gradually improving. -likely a product to his anasplasmosis. - UA showed dirty urine with blood and casts, no nitrites, LE or bacteria. likely secondary to dehydration. - urine culture pending 5)Altered mental status, Metabolic encephalopathy , improving - VB.38/37/31/21 - improving with hydration, appears near baseline appropriate aeration - Head CT negative for acute bleed, midline shift - will continue to monitor - fall precautions - aspiration precautions, speech eval placed, NPO 6) AFib, Aflutter with Medtronic Pacemaker placement - chronic, on Xarelto 20 mg daily 7) Pressure ulcer of back - likely secondary to being down for multiple days - wound care consult - pressure dressings as needed 8) Elevated Liver enzymes - secondary to anaplasmosis vs. alcohol? - AST 166, Alt 84 fits 2:1 expected of alcohol abuse. - previous levels normal in 2018 - Alk phos normal at 59. would expect elevation with Anaplasmosis causing liver damage - will monitor. CMP. DVT ppx: on xarelto Code Status: full code Dispo: PCU PT/OT recommend SNF placement prior to going home. Patient is agreeable to SNF placement. (2) Anaplasmosis: (3) Pressure ulcer of back: (4) MARCUS (acute kidney injury): (5) Elevated LFTs: (6) Rhabdomyolysis: (7) Dyspnea: (8) BPH w urinary obs/LUTS: (9) Atrial fibrillation: Admission and Anticipated Discharge Date Admission Date: May 08, 2020 Subjective Patient reports feeling well. He has no complaints. Review of Systems Review of Systems: All systems reviewed & are unremarkable except as noted in HPI & below Physical Exam Physical Exam: Constitutional: thin, appears to be breathing well. Eyes: eyes closed in bed, opens to command Mouth: thick secretions, no oral swelling Cardiac: irregularly irregular, regular rate, no murmurs or gallops noted Pulm: good air movement throughout both lungs, improved breath sounds, no focal crackles or wheezes noted Abd: soft, nontender, nondistended, normal bowel sounds, no rebound or guarding Extremities: 2+ peripheral pulses, no edema, no calf tenderness bilaterally Neuro: no focal deficits, moving all 4 limbs, A&Ox2 to person and place. Results & Data Results & Data ([facility]) Vital Signs (Past 12 Hours) Vital Signs Temp Pulse Pulse Resp BP BP Pulse Ox 05/12/20 19:43 36.4 C L 52 L 21 116/70 96 05/12/20 16:05 36.5 C 57 L 21 99/64 L 96 07/02/20 16:00 60 05/12/20 11:13 36.9 C 60 19 111/71 97 PG Care Time/CCT Total # of Minutes Spent Total Time Spent with Patient: Total time spent is greater than 50% in coordination of care (as documented) at patient's floor/unit and/or counseling patient: Coding Level of Care Code 17482 Subseq Hosp Care Lvl 2 Diagnoses Anaplasmosis A77.49 Time Spent (min) 25
[2020-05-13] MEDS: VITAMIN B COMPLEX TAB PO SCH (08:27)
[2020-05-13] MEDS: METOPROLOL SUCC 25MG EXT REL TAB PO SCH (08:27)
[2020-05-13] MEDS: DOXYCYCLINE HYCLATE 100 MG in DEXTROSE 5% 100 ML IV SCH ×2 (08:27→19:45)
[2020-05-13] MEDS: OMEGA-3 (PURIFIED FISH OIL) 1 GM CAP PO SCH (08:27)
[2020-05-13] MEDS: CEROVITE ADV FORMULA TAB PO SCH (08:27)
[2020-05-13] MEDS: RIVAROXABAN 15 MG TAB PO SCH (17:11)
[2020-05-13] MEDS: FINASTERIDE 5 MG TAB PO SCH (19:44)
[2020-05-13] MEDS: AMMONIUM LACTATE 12% LOTION 225 GM BTL EXT SCH (19:44)
[2020-05-13] MEDS: ACETAMINOPHEN 325 MG TAB PO PRN (21:12)
--- NOTE | 2020-05-13 22:14 | Hospitalist Progress Note ---
Date of Service May 13, 2020 Assessment & Plan (1) Anaplasmosis: Fall: 79 yo M with PMH Chronic Afib on xarelto, BPH w/ urinary obstruction/LUTS who was found down at home by neighbor/EMS after ~3 days. 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 Pathology report to follow. - Pt has not been hiking or around ticks, however he has multiple pets at home. - Received 1 dose Doxycycline in ED, 100 mg BID x 10 days ordered for course completion. candace continue doxycycline while he is here. now on PO antibiotics. -Main issue is patient is undecided about placement. Currently no beds available at [facility]. -will repeat PT assessment tomorrow. If he is showing improvement on tomorrow's eval, will discharge home with home health 2) Fall 2/2 unknown cause (Cardiac syncope?) vs deconditioning: - may need rehab at SNF - May be secondary to problem number one. - will consult cardio given his syncope and history of TAVR. -Appreciate input from cardio, will hold off IV fluids. 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 Described as orthostatic in nature. - preserved left ventricular systolic function with EF 55-60% and severe left ventricular hypertrophy - troponin elevated on admission at 0.528; repeat ordered for 00:30 05/09 and 6:30 6:29. - EKG: aflutter, widened QRS with left bundle branch block. No ST segment changes. - Cervical, Thoracic, Lumbar spine CT showed various levels of osteophytes and degenerative changes, however no fractures. - Head CT noncon negative for mass, hematoma, midline shift, acute infarct. Similar to previous study. - Chest CT showed no focal consolidations, tracheal mucus buildup - mental status improving with hydration, airway support - UTI less likely with negative nitrites, LE, bacteria 3) Rhabdomyolysis 2/2 Fall - CK 2470 on admission. -resolved. stopped IVF. - Lactic acid elevated at 3.6 on admission, improved to 2.8 with fluids. - lactic acid had been fluctuating while he has been here. will monitor. 4) MARCUS 2/2 Rhabdo, Fall - Creatinine is gradually improving. -likely a product to his anasplasmosis. - UA showed dirty urine with blood and casts, no nitrites, LE or bacteria. likely secondary to dehydration. - urine culture pending 5)Altered mental status, Metabolic encephalopathy , improving - VB.38/37/31/21 - improving with hydration, appears near baseline appropriate aeration - Head CT negative for acute bleed, midline shift - will continue to monitor - fall precautions - aspiration precautions, speech eval placed, NPO 6) AFib, Aflutter with Medtr[employer] Pacemaker placement - chronic, on Xarelto 20 mg daily 7) Pressure ulcer of back - likely secondary to being down for multiple days - wound care consult - pressure dressings as needed 8) Elevated Liver enzymes - secondary to anaplasmosis vs. alcohol? - AST 166, Alt 84 fits 2:1 expected of alcohol abuse. - previous levels normal in 2018 - Alk phos normal at 59. would expect elevation with Anaplasmosis causing liver damage - will monitor. CMP. DVT ppx: on xarelto Code Status: full code Dispo: PCU PT/OT recommend SNF placement prior to going home. Patient is agreeable to SNF placement. (2) Anaplasmosis: (3) Pressure ulcer of back: (4) MARCUS (acute kidney injury): (5) Elevated LFTs: (6) Rhabdomyolysis: (7) Dyspnea: (8) BPH w urinary obs/LUTS: (9) Atrial fibrillation: Admission and Anticipated Discharge Date Admission Date: May 08, 2020 Subjective 79 yo male reports feeling well. Patient states he needs to go home to help feed his cat. He is worried about his bills. He states his friend brought the bills that need to be payed. Review of Systems Review of Systems: All systems reviewed & are unremarkable except as noted in HPI & below Physical Exam Physical Exam: Constitutional: thin, appears to be breathing well. Eyes: eyes closed in bed, opens to command Mouth: thick secretions, no oral swelling Cardiac: irregularly irregular, regular rate, no murmurs or gallops noted Pulm: good air movement throughout both lungs, improved breath sounds, no focal crackles or wheezes noted Abd: soft, nontender, nondistended, normal bowel sounds, no rebound or guarding Extremities: 2+ peripheral pulses, no edema, no calf tenderness bilaterally Neuro: no focal deficits, moving all 4 limbs, A&Ox2 to person and place. Results & Data Results & Data ([facility]) Vital Signs (Past 12 Hours) Vital Signs Temp Pulse Resp BP BP Pulse Ox 05/13/20 19:27 36.6 C 60 16 122/70 97 05/13/20 15:39 36.4 C L 60 16 114/71 97 05/13/20 12:01 36.5 C 60 18 122/77 97 PG Care Time/CCT Total # of Minutes Spent Total Time Spent with Patient: Total time spent is greater than 50% in coordination of care (as documented) at patient's floor/unit and/or counseling patient: Coding Level of Care Code 28367 Subseq Hosp Care Lvl 2 Diagnoses Anaplasmosis A77.49 Time Spent (min) 25
[2020-05-14] MEDS: VITAMIN B COMPLEX TAB PO SCH (08:17)
[2020-05-14] MEDS: DOXYCYCLINE HYCLATE 100 MG in DEXTROSE 5% 100 ML IV SCH ×2 (08:17→20:17)
[2020-05-14] MEDS: OMEGA-3 (PURIFIED FISH OIL) 1 GM CAP PO SCH (08:17)
[2020-05-14] MEDS: METOPROLOL SUCC 25MG EXT REL TAB PO SCH (08:17)
[2020-05-14] MEDS: CEROVITE ADV FORMULA TAB PO SCH (08:17)
[2020-05-14] MEDS: RIVAROXABAN 15 MG TAB PO SCH (17:16)
[2020-05-14] MEDS: MAGNESIUM HYDROXIDE SUSP 30 ML UDC PO PRN (18:39)
[2020-05-14] MEDS: FINASTERIDE 5 MG TAB PO SCH (20:17)
[2020-05-14] MEDS: AMMONIUM LACTATE 12% LOTION 225 GM BTL EXT SCH (20:17)
--- NOTE | 2020-05-14 23:44 | Hospitalist Progress Note ---
Date of Service May 14, 2020 Assessment & Plan (1) Anaplasmosis: Fall: 79 yo M with PMH Chronic Afib on xarelto, BPH w/ urinary obstruction/LUTS who was found down at home by neighbor/EMS after ~3 days. 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 Pathology report to follow. - Pt has not been hiking or around ticks, however he has multiple pets at home. - Received 1 dose Doxycycline in ED, 100 mg BID x 10 days ordered for course completion. candace continue doxycycline while he is here. now on PO antibiotics. -Main issue is patient is placement. -Patient now needs rehab as he did poorly on his PT eval. Awaiting placement. 2) Fall 2/2 unknown cause (Cardiac syncope?) vs deconditioning: - may need rehab at SNF - May be secondary to problem number one. - will consult cardio given his syncope and history of TAVR. -Appreciate input from cardio, will hold off IV fluids. 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 Described as orthostatic in nature. - preserved left ventricular systolic function with EF 55-60% and severe left ventricular hypertrophy - troponin elevated on admission at 0.528; repeat ordered for 00:30 05/09 and 6:30 6:29. - EKG: aflutter, widened QRS with left bundle branch block. No ST segment changes. - Cervical, Thoracic, Lumbar spine CT showed various levels of osteophytes and degenerative changes, however no fractures. - Head CT noncon negative for mass, hematoma, midline shift, acute infarct. Similar to previous study. - Chest CT showed no focal consolidations, tracheal mucus buildup - mental status improving with hydration, airway support - UTI less likely with negative nitrites, LE, bacteria 3) Rhabdomyolysis 2/2 Fall - CK 2470 on admission. -resolved. stopped IVF. - Lactic acid elevated at 3.6 on admission, improved to 2.8 with fluids. - lactic acid had been fluctuating while he has been here. will monitor. 4) MARCUS 2/2 Rhabdo, Fall - Creatinine is gradually improving. -likely a product to his anasplasmosis. - UA showed dirty urine with blood and casts, no nitrites, LE or bacteria. likely secondary to dehydration. - urine culture pending 5)Altered mental status, Metabolic encephalopathy , improving - VB.38/37/31/21 - improving with hydration, appears near baseline appropriate aeration - Head CT negative for acute bleed, midline shift - will continue to monitor - fall precautions - aspiration precautions, speech eval placed, NPO 6) AFib, Aflutter with [employer] Pacemaker placement - chronic, on Xarelto 20 mg daily 7) Pressure ulcer of back - likely secondary to being down for multiple days - wound care consult - pressure dressings as needed 8) Elevated Liver enzymes - secondary to anaplasmosis vs. alcohol? - AST 166, Alt 84 fits 2:1 expected of alcohol abuse. - previous levels normal in 2018 - Alk phos normal at 59. would expect elevation with Anaplasmosis causing liver damage - will monitor. CMP. DVT ppx: on xarelto Code Status: full code Dispo: PCU PT/OT recommend SNF placement prior to going home. Patient is agreeable to SNF placement. (2) Anaplasmosis: (3) Pressure ulcer of back: (4) MARCUS (acute kidney injury): (5) Elevated LFTs: (6) Rhabdomyolysis: (7) Dyspnea: (8) BPH w urinary obs/LUTS: (9) Atrial fibrillation: Admission and Anticipated Discharge Date Admission Date: May 08, 2020 Subjective 79 yo male reports feeling well. He has no new complaints. Review of Systems Review of Systems: All systems reviewed & are unremarkable except as noted in HPI & below Physical Exam Physical Exam: Constitutional: thin, appears to be breathing well. Eyes: eyes closed in bed, opens to command Mouth: thick secretions, no oral swelling Cardiac: irregularly irregular, regular rate, no murmurs or gallops noted Pulm: good air movement throughout both lungs, improved breath sounds, no focal crackles or wheezes noted Abd: soft, nontender, nondistended, normal bowel sounds, no rebound or guarding Extremities: 2+ peripheral pulses, no edema, no calf tenderness bilaterally Neuro: no focal deficits, moving all 4 limbs, A&Ox2 to person and place. Results & Data Results & Data ([facility]) Vital Signs (Past 12 Hours) Vital Signs Temp Pulse Pulse Resp BP BP Pulse Ox 05/14/20 23:18 36.7 C 62 18 122/68 96 05/14/20 19:07 36.4 C L 58 L 21 113/70 95 05/14/20 16:00 60 05/14/20 15:43 36.7 C 58 L 20 128/72 97 05/14/20 11:50 36.5 C 60 18 128/77 97 PG Care Time/CCT Total # of Minutes Spent Total Time Spent with Patient: Total time spent is greater than 50% in coordination of care (as documented) at patient's floor/unit and/or counseling patient: Coding Level of Care Code 35616 Subseq Hosp Care Lvl 2 Diagnoses Anaplasmosis A77.49 Time Spent (min) 25
[2020-05-15] MEDS: DOXYCYCLINE HYCLATE 100 MG in DEXTROSE 5% 100 ML IV SCH ×2 (08:35→20:35)
[2020-05-15] MEDS: VITAMIN B COMPLEX TAB PO SCH (08:35)
[2020-05-15] MEDS: METOPROLOL SUCC 25MG EXT REL TAB PO SCH (08:35)
[2020-05-15] MEDS: OMEGA-3 (PURIFIED FISH OIL) 1 GM CAP PO SCH (08:35)
[2020-05-15] MEDS: CEROVITE ADV FORMULA TAB PO SCH (08:35)
[2020-05-15] MEDS: RIVAROXABAN 15 MG TAB PO SCH (17:10)
[2020-05-15] MEDS: AMMONIUM LACTATE 12% LOTION 225 GM BTL EXT SCH (20:36)
[2020-05-15] MEDS: FINASTERIDE 5 MG TAB PO SCH (20:36)
--- NOTE | 2020-05-15 22:33 | Hospitalist Progress Note ---
Date of Service May 15, 2020 Assessment & Plan (1) Anaplasmosis: Fall: 79 yo M with PMH Chronic Afib on xarelto, BPH w/ urinary obstruction/LUTS who was found down at home by neighbor/EMS after ~3 days. 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 Pathology report to follow. - Pt has not been hiking or around ticks, however he has multiple pets at home. - Received 1 dose Doxycycline in ED, 100 mg BID x 10 days ordered for course completion. candace continue doxycycline while he is here. now on PO antibiotics. -Main issue is patient is placement. -Patient now needs rehab as he did poorly on his PT eval. Awaiting placement. 2) Fall 2/2 unknown cause (Cardiac syncope?) vs deconditioning: - may need rehab at SNF - May be secondary to problem number one. - will consult cardio given his syncope and history of TAVR. -Appreciate input from cardio, will hold off IV fluids. 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 Described as orthostatic in nature. - preserved left ventricular systolic function with EF 55-60% and severe left ventricular hypertrophy - troponin elevated on admission at 0.528; repeat ordered for 00:30 05/09 and 6:30 6:29. - EKG: aflutter, widened QRS with left bundle branch block. No ST segment changes. - Cervical, Thoracic, Lumbar spine CT showed various levels of osteophytes and degenerative changes, however no fractures. - Head CT noncon negative for mass, hematoma, midline shift, acute infarct. Similar to previous study. - Chest CT showed no focal consolidations, tracheal mucus buildup - mental status improving with hydration, airway support - UTI less likely with negative nitrites, LE, bacteria 3) Rhabdomyolysis 2/2 Fall - CK 2470 on admission. -resolved. stopped IVF. - Lactic acid elevated at 3.6 on admission, improved to 2.8 with fluids. - lactic acid had been fluctuating while he has been here. will monitor. 4) MARCUS 2/2 Rhabdo, Fall - Creatinine is gradually improving. -likely a product to his anasplasmosis. - UA showed dirty urine with blood and casts, no nitrites, LE or bacteria. likely secondary to dehydration. - urine culture pending 5)Altered mental status, Metabolic encephalopathy , improving - VB.38/37/31/21 - improving with hydration, appears near baseline appropriate aeration - Head CT negative for acute bleed, midline shift - will continue to monitor - fall precautions - aspiration precautions, speech eval placed, NPO 6) AFib, Aflutter with Medtronic Pacemaker placement - chronic, on Xarelto 20 mg daily 7) Pressure ulcer of back - likely secondary to being down for multiple days - wound care consult - pressure dressings as needed 8) Elevated Liver enzymes - secondary to anaplasmosis vs. alcohol? - AST 166, Alt 84 fits 2:1 expected of alcohol abuse. - previous levels normal in 2018 - Alk phos normal at 59. would expect elevation with Anaplasmosis causing liver damage - will monitor. CMP. DVT ppx: on xarelto Code Status: full code Dispo: PCU PT/OT recommend SNF placement prior to going home. Patient is agreeable to SNF placement. (2) Anaplasmosis: (3) Pressure ulcer of back: (4) MARCUS (acute kidney injury): (5) Elevated LFTs: (6) Rhabdomyolysis: (7) Dyspnea: (8) BPH w urinary obs/LUTS: (9) Atrial fibrillation: Admission and Anticipated Discharge Date Admission Date: May 08, 2020 Subjective Patient reports no new symptoms today. He has no new complaints. Review of Systems Review of Systems: All systems reviewed & are unremarkable except as noted in HPI & below Physical Exam Physical Exam: Constitutional: thin, appears to be breathing well. Eyes: eyes closed in bed, opens to command Mouth: thick secretions, no oral swelling Cardiac: irregularly irregular, regular rate, no murmurs or gallops noted Pulm: good air movement throughout both lungs, improved breath sounds, no focal crackles or wheezes noted Abd: soft, nontender, nondistended, normal bowel sounds, no rebound or guarding Extremities: 2+ peripheral pulses, no edema, no calf tenderness bilaterally Neuro: no focal deficits, moving all 4 limbs, A&Ox2 to person and place. Results & Data Results & Data ([facility]) Vital Signs (Past 12 Hours) Vital Signs Temp Pulse Resp BP BP Pulse Ox 05/15/20 19:12 36.7 C 61 21 105/61 98 05/15/20 15:31 36.3 C L 60 21 110/70 97 05/15/20 11:57 36.4 C L 60 18 106/62 95 PG Care Time/CCT Total # of Minutes Spent Total Time Spent with Patient: Total time spent is greater than 50% in coordination of care (as documented) at patient's floor/unit and/or counseling patient: Coding Level of Care Code 95681 Subseq Hosp Care Lvl 1 Diagnoses Anaplasmosis A77.49
[2020-05-16] MEDS: METOPROLOL SUCC 25MG EXT REL TAB PO SCH (09:40)
[2020-05-16] MEDS: CEROVITE ADV FORMULA TAB PO SCH (09:40)
[2020-05-16] MEDS: VITAMIN B COMPLEX TAB PO SCH (09:40)
[2020-05-16] MEDS: OMEGA-3 (PURIFIED FISH OIL) 1 GM CAP PO SCH (09:40)
[2020-05-16] MEDS: DOXYCYCLINE HYCLATE 100 MG in DEXTROSE 5% 100 ML IV SCH ×2 (10:15→20:38)
[2020-05-16] MEDS: RIVAROXABAN 15 MG TAB PO SCH (17:44)
[2020-05-16] MEDS: MAGNESIUM HYDROXIDE SUSP 30 ML UDC PO PRN (17:46)
[2020-05-16] MEDS: AMMONIUM LACTATE 12% LOTION 225 GM BTL EXT SCH (20:38)
[2020-05-16] MEDS: FINASTERIDE 5 MG TAB PO SCH (20:39)
--- NOTE | 2020-05-16 21:39 | Hospitalist Progress Note ---
Date of Service May 16, 2020 Assessment & Plan (1) Anaplasmosis: Fall: 79 yo M with PMH Chronic Afib on xarelto, BPH w/ urinary obstruction/LUTS who was found down at home by neighbor/EMS after ~3 days. 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 Pathology report to follow. - Pt has not been hiking or around ticks, however he has multiple pets at home. - Received 1 dose Doxycycline in ED, 100 mg BID x 10 days ordered for course completion. candace continue doxycycline while he is here. now on PO antibiotics. -Main issue is patient is placement. -Patient now needs rehab as he did poorly on his PT eval. Awaiting placement. 2) Fall 2/2 unknown cause (Cardiac syncope?) vs deconditioning: - may need rehab at SNF - May be secondary to problem number one. - will consult cardio given his syncope and history of TAVR. -Appreciate input from cardio, will hold off IV fluids. 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 Described as orthostatic in nature. - preserved left ventricular systolic function with EF 55-60% and severe left ventricular hypertrophy - troponin elevated on admission at 0.528; repeat ordered for 00:30 05/09 and 6:30 :29. - EKG: aflutter, widened QRS with left bundle branch block. No ST segment changes. - Cervical, Thoracic, Lumbar spine CT showed various levels of osteophytes and degenerative changes, however no fractures. - Head CT noncon negative for mass, hematoma, midline shift, acute infarct. Similar to previous study. - Chest CT showed no focal consolidations, tracheal mucus buildup - mental status improving with hydration, airway support - UTI less likely with negative nitrites, LE, bacteria 3) Rhabdomyolysis 2/2 Fall - CK 2470 on admission. -resolved. stopped IVF. - Lactic acid elevated at 3.6 on admission, improved to 2.8 with fluids. - lactic acid had been fluctuating while he has been here. will monitor. 4) MARCUS 2/2 Rhabdo, Fall - Creatinine is gradually improving. -likely a product to his anasplasmosis. - UA showed dirty urine with blood and casts, no nitrites, LE or bacteria. likely secondary to dehydration. - urine culture pending 5)Altered mental status, Metabolic encephalopathy , improving - VB.38/37/31/21 - improving with hydration, appears near baseline appropriate aeration - Head CT negative for acute bleed, midline shift - will continue to monitor - fall precautions - aspiration precautions, speech eval placed, NPO 6) AFib, Aflutter with Medtronic Pacemaker placement - chronic, on Xarelto 20 mg daily 7) Pressure ulcer of back - likely secondary to being down for multiple days - wound care consult - pressure dressings as needed 8) Elevated Liver enzymes - secondary to anaplasmosis vs. alcohol? - AST 166, Alt 84 fits 2:1 expected of alcohol abuse. - previous levels normal in 2018 - Alk phos normal at 59. would expect elevation with Anaplasmosis causing liver damage DVT ppx: on xarelto Code Status: full code Dispo: PCU PT/OT recommend SNF placement prior to going home. Patient is agreeable to SNF placement. (2) Anaplasmosis: (3) Pressure ulcer of back: (4) MARCUS (acute kidney injury): (5) Elevated LFTs: (6) Rhabdomyolysis: (7) Dyspnea: (8) BPH w urinary obs/LUTS: (9) Atrial fibrillation: Admission and Anticipated Discharge Date Admission Date: May 08, 2020 Subjective Patient has no new complaints. Review of Systems Review of Systems: All systems reviewed & are unremarkable except as noted in HPI & below Physical Exam Physical Exam: Constitutional: thin, appears to be breathing well. Eyes: eyes closed in bed, opens to command Mouth: thick secretions, no oral swelling Cardiac: irregularly irregular, regular rate, no murmurs or gallops noted Pulm: good air movement throughout both lungs, improved breath sounds, no focal crackles or wheezes noted Abd: soft, nontender, nondistended, normal bowel sounds, no rebound or guarding Extremities: 2+ peripheral pulses, no edema, no calf tenderness bilaterally Neuro: no focal deficits, moving all 4 limbs, A&Ox2 to person and place. Results & Data Results & Data ([facility]) Vital Signs (Past 12 Hours) Vital Signs Temp Pulse Resp BP Pulse Ox 05/16/20 14:59 36.8 C 59 L 18 124/78 99 PG Care Time/CCT Total # of Minutes Spent Total Time Spent with Patient: Total time spent is greater than 50% in coordination of care (as documented) at patient's floor/unit and/or counseling patient: Coding Level of Care Code 18613 Subseq Hosp Care Lvl 1 Diagnoses Anaplasmosis A77.49
[2020-05-17] MEDS: ACETAMINOPHEN 325 MG TAB PO PRN (03:28)
[2020-05-17] MEDS: VITAMIN B COMPLEX TAB PO SCH (08:00)
[2020-05-17] MEDS: METOPROLOL SUCC 25MG EXT REL TAB PO SCH (08:00)
[2020-05-17] MEDS: OMEGA-3 (PURIFIED FISH OIL) 1 GM CAP PO SCH (08:00)
[2020-05-17] MEDS: CEROVITE ADV FORMULA TAB PO SCH (08:00)
[2020-05-17] MEDS: DOXYCYCLINE HYCLATE 100 MG in DEXTROSE 5% 100 ML IV SCH ×2 (08:06→21:12)
[2020-05-17] MEDS: RIVAROXABAN 15 MG TAB PO SCH (18:28)
--- NOTE | 2020-05-17 19:02 | Hospitalist Progress Note ---
Date of Service May 17, 2020 Assessment & Plan (1) Anaplasmosis: Fall: 79 yo M with PMH Chronic Afib on xarelto, BPH w/ urinary obstruction/LUTS who was found down at home by neighbor/EMS after ~3 days. 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 Pathology report to follow. - lives in [facility] - endemic to this - Received 1 dose Doxycycline in ED, 100 mg BID x 10 days ordered for course completion. 2) Fall 2/2 unknown cause (Cardiac syncope?) vs deconditioning: - would benefit from rehab - insurance auth pending - May be secondary to problem number one. -Appreciate input from cardio, will hold off IV fluids. 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 Described as orthostatic in nature. - preserved left ventricular systolic function with EF 55-60% and severe left ventricular hypertrophy - troponin elevated on admission at 0.528; repeat ordered for 00:30 05/09 and 6:30 :. - EKG: aflutter, widened QRS with left bundle branch block. No ST segment changes. - Cervical, Thoracic, Lumbar spine CT showed various levels of osteophytes and degenerative changes, however no fractures. - Head CT noncon negative for mass, hematoma, midline shift, acute infarct. Similar to previous study. - Chest CT showed no focal consolidations, tracheal mucus buildup - would benefit from rehab. awaiting insurance auth 3) mild Rhabdomyolysis 2/2 Fall - CK 2470 on admission. -resolved. stopped IVF. - Lactic acid elevated at 3.6 on admission, improved to 2.8 with fluids. 4) MARCUS 2/2 Rhabdo, Fall - Creatinine has gradually improved. likely was from anaplasmosis and/or dehydration 5)Altered mental status, Metabolic encephalopathy - uncertain baseline but seems improved. 6) AFib, Aflutter with Medtronic Pacemaker placement - chronic, on Xarelto 15 mg daily (renally dosed) 7) Pressure ulcer of back - likely secondary to being down for multiple days - wound care consult / local care ongoing 8) Elevated Liver enzymes - likely due to anaplasmosis - follow up as outpt DVT ppx: on xarelto Code Status: full code Dispo: for rehab once approved (2) Anaplasmosis: (3) Pressure ulcer of back: (4) MARCUS (acute kidney injury): (5) Elevated LFTs: (6) Rhabdomyolysis: (7) Dyspnea: (8) BPH w urinary obs/LUTS: (9) Atrial fibrillation: Admission and Anticipated Discharge Date Admission Date: May 08, 2020 Subjective generally feeling better only main complaint is pain in butt from ulcer but notes thisisn't too bad either. getting around better and feeling stronger. would like to go to rehab. Review of Systems Review of Systems: All systems reviewed & are unremarkable except as noted in HPI & below Physical Exam Physical Exam: gen aao pleasant nad heent nc at mmm breathing unlabored no accessory muscles good effort skin no rashes no pallor or icterus, wound image reviewed, wound dressed when i'm in the room - looked closely at margins wtihout truly taking dressing down given wound team photo from same day as well as not wanting to increase his risk of MRSA/etc in the wound - but no tracking erythema noted. Results & Data Results & Data ([facility]) Vital Signs (Past 12 Hours) Vital Signs Temp Pulse Resp BP BP Pulse Ox 05/17/20 16:02 98.6 F 57 L 16 105/66 98 05/17/20 07:41 98.4 F 59 L 16 124/67 97 PG Care Time/CCT Total # of Minutes Spent Total Time Spent with Patient: Total time spent is greater than 50% in coordination of care (as documented) at patient's floor/unit and/or counseling patient: Coding Level of Care Code 83347 Subseq Hosp Care Lvl 3 Diagnoses Anaplasmosis A77.49
[2020-05-17] MEDS: AMMONIUM LACTATE 12% LOTION 225 GM BTL EXT SCH (21:05)
[2020-05-17] MEDS: FINASTERIDE 5 MG TAB PO SCH (21:05)
[2020-05-17] MEDS: prednisoLONE acetate 1% OP SUSP 5 ML BTL OPL SCH (21:06)
[2020-05-18] MEDS: ACETAMINOPHEN 325 MG TAB PO PRN (07:48)
[2020-05-18] MEDS: DOXYCYCLINE HYCLATE 100 MG in DEXTROSE 5% 100 ML IV SCH (08:20)
[2020-05-18 08:41] LABS: Basophils # (auto) 0.03 K/uL (0-0.2); Basophils % (auto) 0.2 %; Eosinophils # (auto) 0.02 K/uL (0-0.5); Eosinophils % (auto) 0.1 %; Hemoglobin 12.1 g/dL (14.0-18.0); Immature Granulocytes # (auto) 0.13 K/uL (0.00-0.02); Immature Granulocytes % (auto) 0.8 %; Lymphocytes # (auto) 3.47 K/uL (1.2-3.4); Mean Corpuscular Hemoglobin 28.8 pg (25-34); Mean Corpuscular Hgb Conc 32.7 g/dL (32-36); Mean Corpuscular Volume 88.1 fL (80-100); Mean Platelet Volume 9.3 fL (7.4-10.4); Monocytes # (auto) 0.81 K/uL (0.11-0.59); Monocytes % (auto) 5.1 %; Neutrophils % (auto) 71.8 %; Platelet Count 249 K/uL (130-400); RDW Coefficient of Variation 14.4 % (11.5-14.5); RDW Standard Deviation 46.5 fL (36.4-46.3); White Blood Count 15.76 K/uL (4.8-10.8)
[2020-05-18 09:05] LABS: BUN Creatinine Ratio 23.9 (10-20); Calcium 8.5 mg/dl (8.5-10.1); Creatinine Clr Calc Pharmacy 55.1 ml/min; Est GFR (African American) 70.3; Est GFR (Non-African American) 60.6
[2020-05-18] MEDS: OMEGA-3 (PURIFIED FISH OIL) 1 GM CAP PO SCH (09:34)
[2020-05-18] MEDS: CEROVITE ADV FORMULA TAB PO SCH (09:35)
[2020-05-18] MEDS: VITAMIN B COMPLEX TAB PO SCH (09:35)
[2020-05-18] MEDS: METOPROLOL SUCC 25MG EXT REL TAB PO SCH (09:35)
[2020-05-18] MEDS: prednisoLONE acetate 1% OP SUSP 5 ML BTL OPL SCH ×2 (09:35→20:06)
[2020-05-18] MEDS: DOXYCYCLINE HYCLATE 100 MG CAP PO SCH ×2 (09:47→20:06)
--- NOTE | 2020-05-18 11:48 | Hospitalist Progress Note ---
Date of Service May 18, 2020 Assessment & Plan (1) Fever: (2) Pressure ulcer of back: (3) MARCUS (acute kidney injury): 79 yo M with PMH Chronic Afib on Xarelto, BPH w/ urinary obstruction/LUTS admitted for fall with immobility for three days, now with fever and leukocytosis. Fever and Leukocytosis in the setting of Sacral Decubitus Ulcer: - Sacral wound is likely secondary to immobility from fall for several days. - With fever to 38.2C and leukocytosis to 15 this AM despite doxy therapy (for Anaplasmosis). - Will draw blood cultures and start patient on Unasyn for Gram negative and anaerobic coverage. Consider doxy-resistant MRSA if continues to have worsening of leukocytosis or continued fevers despite antibiotic therapy. - Wound care consult / local care ongoing. Fall 2/2 dehydration vs cardiac cause vs deconditioning: - Likely secondary to dehydration as patient admits poor fluid intake at baseline. 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 Described as orthostatic in nature. - Cardiology consulted this admission, Echo performed with preserved EF 55-60%, severe LVH. - Troponin elevated on admission, stabilized, no chest pain or palpitations this admission. - EKG: aflutter, widened QRS with left bundle branch block. No ST/T wave changes. - Cervical, Thoracic, Lumbar spine CT showed various levels of osteophytes and degenerative changes, however no fractures. - Head CT negative for mass, hematoma, midline shift, acute infarct. - Chest CT showed no focal consolidations, tracheal mucus buildup. - In-house PT/OT recommend acute rehab facility for strengthening. [facility] referral placed. 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 Pathology report to follow. - Lives in [facility] and spent some time near a friend's house that is near the [facility]. - Received 1 dose Doxycycline in ED, 100 mg BID x 10 days ordered for course completion. Mild Rhabdomyolysis 2/2 Fall: - CK 2470 on admission. - Resolved, IV fluids have been discontinued in leiu of appropriate PO intake. - Lactic acid elevated at 3.6 on admission, improved with fluids. MARCUS 2/2 Rhabdomyolysis, dehydration, fall: - Creatinine 1.77 on admission, down to 1.15 today. - MARCUS was likely was multifactorial, due to rhabdomyolysis from fall, dehydration, anaplasmosis. Altered mental status, Metabolic encephalopathy - uncertain baseline but seems improved. AFib, Aflutter with Medtronic Pacemaker placement: - Chronic, on Xarelto 15 mg daily, continue. 8) Elevated Liver enzymes - Likely due to Anaplasmosis, should follow up in outpatient setting after completing treatment with doxycycline. Code StatusL FULL CODE FEN/GI: Heart Healthy, easy to chew DVT ppx: Xarelto Dispo: Med/Surg, for rehab once approved (4) Anaplasmosis: (5) Atrial flutter, chronic: Admission and Anticipated Discharge Date Admission Date: May 08, 2020 Supervising Physician Co-Signing Physician Notes I personally examined the patient and verified all rich points of history and exa m, discussed case, and agree with decision making with Dr Garber. feeling about the same. fever this AM and WBC increased. no new pain though. vitals noted nad heent nc at mmm breathing unlabored. sacral/buttock wound dressed but evaluated by wound team today, no tracking erythema - new odor noted and wound physician informed sepsis - new onset - likely from sacral ulcer as no other clear source of infection, and change in odor of ulcer. already on doxy for anaplasmosis so gram positives should be covered -- will add unasyn to cover for gram neg and anaerobes given location of wound - if doesn't improve then may need to alter MRSA coverage since it's certainly possible to acquire doxy-resistant MRSA when in the hospital. for now follow clinically and follow labs on unasyn. anaplasmosis - continue doxy for now, although seeming more likely that new fever is due to sacral ulcer infection as above; follow. anticoagulated x xarelto will certainly suffice for DVT proph otherwise as above Subjective Patient with one episode of fever this AM, with associated sweating. No abdominal pain, urinary symptoms, SOB, wheezing, chest pain. Reports that "his backside hurts". Review of Systems Constitutional: + fever; no chills and no malaise Respiratory: no cough, no dyspnea and no wheezing Cardiovascular: no chest pain, no palpitations and no edema Gastrointestinal: no abdominal pain, no constipation and no diarrhea/loose stools Genitourinary: no dysuria and no hematuria Physical Exam Constitutional: WD/WN, vitals as above Eyes: PERRL, conjunctivae normal, anicteric sclerae ENMT: external ear and nose normal, oropharynx normal Neck: normal visual inspection Respiratory: normal respiratory effort, lungs clear to auscultation Cardiovascular: RRR, no murmur, no edema Gastrointestinal (Abdomen): normal bowel sounds, soft, nontender, no hepatosplenomegaly Musculoskeletal: no cyanosis or clubbing, extremities motor strength 5/5 Skin: exam of sacral area deferred, as patient to be seen by wound care physician and dressing in place. Reviewed wound photos from 05/17. Neurologic: AAOx3, normal speech. PERRLA, EOMI, no nystagmus. Normal visual acuity bilaterally. Psychiatric: A+Ox3, euthymic affect Results & Data Results & Data ([facility]) Vital Signs (Past 12 Hours) Vital Signs Temp Pulse Resp BP Pulse Ox 05/18/20 11:36 36.5 C 05/18/20 07:21 38.2 C H 59 L 20 122/71 95 Resident Activity Tracking Resident Involvement: Resident Care Provided Care Provided: Adult Hospital Medicine (1) Pressure ulcer of back Pressure injury stage: stage 2 Qualified Code(s): L89.102 - Pressure ulcer of unspecified part of back, stage 2
[2020-05-18] MEDS: AMPICILLIN/SULBACTAM SOD 3,000 MG in 0.9 % SODIUM CHLORIDE 100 ML IV SCH ×3 (12:31→23:54)
--- NOTE | 2020-05-18 15:46 | Billing Data ---
Date of Service May 18, 2020 Coding Level of Care Code 74167 Subseq Hosp Care Lvl 3
[2020-05-18] MEDS: RIVAROXABAN 15 MG TAB PO SCH (17:16)
[2020-05-18] MEDS: FINASTERIDE 5 MG TAB PO SCH (20:05)
[2020-05-18] MEDS: AMMONIUM LACTATE 12% LOTION 225 GM BTL EXT SCH (20:08)
[2020-05-19] MEDS: AMPICILLIN/SULBACTAM SOD 3,000 MG in 0.9 % SODIUM CHLORIDE 100 ML IV SCH ×4 (05:43→23:08)
[2020-05-19 06:21] LABS: Basophils # (auto) 0.03 K/uL (0-0.2); Basophils % (auto) 0.2 %; Eosinophils # (auto) 0.04 K/uL (0-0.5); Eosinophils % (auto) 0.3 %; Hematocrit (blood only) 33.4 % (42-52); Hemoglobin 11.1 g/dL (14.0-18.0); Immature Granulocytes # (auto) 0.13 K/uL (0.00-0.02); Lymphocytes % (auto) 33.6 %; Mean Corpuscular Hemoglobin 29.1 pg (25-34); Mean Corpuscular Hgb Conc 33.2 g/dL (32-36); Mean Corpuscular Volume 87.7 fL (80-100); Mean Platelet Volume 9.3 fL (7.4-10.4); Monocytes # (auto) 1.32 K/uL (0.11-0.59); Monocytes % (auto) 10.6 %; Neutrophils # (auto) 6.79 K/uL (1.4-6.5); Neutrophils % (auto) 54.3 %; Platelet Count 250 K/uL (130-400); RDW Coefficient of Variation 14.2 % (11.5-14.5); RDW Standard Deviation 45.5 fL (36.4-46.3); Red Blood Count 3.81 M/uL (4.7-6.1); White Blood Count 12.51 K/uL (4.8-10.8)
[2020-05-19 06:59] LABS: BUN Creatinine Ratio 25.7 (10-20); Calcium 8.1 mg/dl (8.5-10.1); Creatinine Clr Calc Pharmacy 62.1 ml/min; Est GFR (African American) 81.2; Est GFR (Non-African American) 70.1; Potassium 3.9 mmol/L (3.5-5.1)
[2020-05-19] MEDS: METOPROLOL SUCC 25MG EXT REL TAB PO SCH (09:17)
[2020-05-19] MEDS: DOXYCYCLINE HYCLATE 100 MG CAP PO SCH ×2 (09:17→20:39)
[2020-05-19] MEDS: VITAMIN B COMPLEX TAB PO SCH (09:17)
[2020-05-19] MEDS: CEROVITE ADV FORMULA TAB PO SCH (09:17)
[2020-05-19] MEDS: OMEGA-3 (PURIFIED FISH OIL) 1 GM CAP PO SCH (09:17)
[2020-05-19] MEDS: prednisoLONE acetate 1% OP SUSP 5 ML BTL OPL SCH ×2 (09:18→20:40)
--- NOTE | 2020-05-19 09:30 | Hospitalist Progress Note ---
Date of Service May 19, 2020 Assessment & Plan (1) Fever: (2) Pressure ulcer of back: (3) MARCUS (acute kidney injury): 79 yo M with PMH Chronic Afib on Xarelto, BPH w/ urinary obstruction/LUTS admitted for fall with immobility for three days, now with fever and leukocytosis. Fever and Leukocytosis in the setting of Sacral Decubitus Ulcer: - Sacral wound is likely secondary to immobility from fall for several days. - With fever to 38.2C and leukocytosis to 15 on 05/18 despite doxy therapy (for Anaplasmosis). - Unasyn started, with improvement in leukocytosis 15.7 -> 12.5, afebrile since fever event yesterday morning. - BCx x2 negative to date. - Patient on Unasyn for Gram negative and anaerobic coverage, doxycycline for Staph/Strep coverage. Consider doxy-resistant MRSA if continues to have worsening of leukocytosis or continued fevers despite antibiotic therapy. - Wound care consult / local care ongoing. Fall 2/ dehydration vs cardiac cause vs deconditioning: - Likely secondary to dehydration as patient admits poor fluid intake at baseline. 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 Described as orthostatic in nature. - Cardiology consulted this admission, Echo performed with preserved EF 55-60%, severe LVH. - Troponin elevated on admission, stabilized, no chest pain or palpitations this admission. - EKG: aflutter, widened QRS with left bundle branch block. No ST/T wave changes. - Cervical, Thoracic, Lumbar spine CT showed various levels of osteophytes and degenerative changes, however no fractures. - Head CT negative for mass, hematoma, midline shift, acute infarct. - Chest CT showed no focal consolidations, tracheal mucus buildup. - In-house PT/OT recommend acute rehab facility for strengthening. 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 Pathology report to follow. - Lives in [facility] and spent some time near a friend's house that is [facility]. - Received 1 dose Doxycycline in ED, 100 mg BID x 10 days ordered for course completion. Mild Rhabdomyolysis / Fall: - CK 2470 on admission. - Resolved, IV fluids have been discontinued in leiu of appropriate PO intake. - Lactic acid elevated at 3.6 on admission, improved with fluids. MARCUS 2/2 Rhabdomyolysis, dehydration, fall: - Creatinine 1.77 on admission, down to 1.02 today. - MARCUS was likely was multifactorial, due to rhabdomyolysis from fall, dehydration, anaplasmosis. Altered mental status, Metabolic encephalopathy - uncertain baseline but seems improved. AFib, Aflutter with [employer] Pacemaker placement: - Chronic, on Xarelto 15 mg daily, continue. 8) Elevated Liver enzymes - Likely due to Anaplasmosis, should follow up in outpatient setting after completing treatment with doxycycline. Code StatusL FULL CODE FEN/GI: Heart Healthy, easy to chew DVT ppx: Xarelto Dispo: Med/Surg, for rehab once approved (4) Anaplasmosis: (5) Atrial flutter, chronic: Admission and Anticipated Discharge Date Admission Date: May 08, 2020 Supervising Physician Co-Signing Physician Notes I personally examined the patient and verified all rich points of history and exam, discussed case, and agree with decision making with Dr Garber. legs swollen but propping them up. knees hurt - notes he uses a gel at home - not sure what but believes it to be voltaren vitals noted nad heent nc at mmm breathing unlabored. b/l LE ~1-2+ edema. nontender no erythema no cords. knees visibly hypertrophied sepsis - new onset - likely from sacral ulcer as no other clear source of infection, and change in odor of ulcer. now improving on unasyn. continue this and local wound care. doxy would be covering gram positives but since he developed the infection on doxy and it got better w unasyn, this makes gm neg or anaerobe (or both) more likely anaplasmosis - continue doxy for now, although seeming more likely that new fever is due to sacral ulcer infection as above -- might be able to stop in soon. anticoagulated x xarelto will certainly suffice for DVT proph venous stasis edema - elevation, PT, mobilize knee DJD/OA - voltaren gel otherwise as above Subjective Patient without acute events overnight, no fevers or chills. Still endorses "butt and back pain", does not recall having an ulcer of the sacrum prior to his fall at home. No chest pain or SOB, nausea or vomiting, diarrhea or constipatio n. Per nursing the wound on his sacrum has not changed since yesterday, but it continues to be malodorous and have yellow drainage. Review of Systems Review of Systems: All systems reviewed & are unremarkable except as noted in Subjective Physical Exam Constitutional: WD/WN, vitals as above Eyes: PERRL, conjunctivae normal, anicteric sclerae ENMT: external ear and nose normal, oropharynx normal Neck: normal visual inspection Respiratory: normal respiratory effort, lungs clear to auscultation Cardiovascular: RRR, no murmur, no edema Gastrointestinal (Abdomen): normal bowel sounds, soft, nontender, no hepatosplenomegaly Musculoskeletal: no cyanosis or clubbing, extremities motor strength 5/5 Skin: Sacral wound visualized while patient moving from bed to chair with assistance. 9x7cm Stage 2 pressure ulcer located over the buttocks/sacrum with mild surrounding erythema. Malodorous, with yellow discharge. Neurologic: AAOx3, normal speech. PERRLA, EOMI, no nystagmus. Normal visual acuity bilaterally. Psychiatric: A+Ox3, euthymic affect Results & Data Results & Data ([facility]) Vital Signs (Past 12 Hours) Vital Signs Temp Pulse Resp BP Pulse Ox 05/19/20 07:47 36.8 C 60 24 120/68 97 05/19/20 07:46 36.8 C 60 24 120/68 97 05/18/20 23:00 37.4 C 60 20 119/71 97 Resident Activity Tracking Resident Involvement: Resident Care Provided Care Provided: Adult Hospital Medicine (1) Pressure ulcer of back Pressure injury stage: stage 2 Qualified Code(s): L89.102 - Pressure ulcer of unspecified part of back, stage 2
--- NOTE | 2020-05-19 15:34 | Wound Progress Note ---
Date of Service May 19, 2020 Assessment & Plan (1) Pressure injury of deep tissue of sacral region: Eschar had dried out prior to arrival. Wound does need debridement. After obtaining permission topical Xylocaine was applied. Using a scalpel the eschar was scored. This represents non-excisional debridement of approximately 20 cm. Wound be dressed with Santyl to allow for chemical debridement. We will continue to follow. (2) Suspected deep tissue injury of unknown depth of upper back: Eschar had dried prior to arrival. Wound needs debridement. After taking permission Aquacel Ag was applied. Using a self comfortable eschar was scored. This represents an excisional debridement of less than 20 cm. Total debridement of approximately 20 cm. Wound be dressed with Santyl for chemical debridement. We will continue to follow. Subjective Patient seen at bedside. No new complaints. This AM nursing was concerned that wound was foul smelling and liquified. Patient sitting in chair and dressing had slid up his back. Wound now dried out. Review of Systems Review of Systems: All systems reviewed & are unremarkable except as noted in HPI & below Physical Exam Skin: Wound measuring as recorded in nursing documentation. Eschar has dried out. There is currently no drainage or foul odors. Neurologic: awake Psychiatric: Orientation: alert, oriented to person, oriented to place and cooperative Results & Data Vital Signs (Past 12 Hours) Vital Signs Temp Pulse Resp BP Pulse Ox 05/19/20 07:47 36.8 C 60 24 120/68 97 05/19/20 07:46 36.8 C 60 24 120/68 97 Laboratory Results 05/19/20 05/19/20 Range/Units 05:58 05:58 WBC 12.51 H (4.8-10.8) K/uL RBC 3.81 L (4.7-6.1) M/uL Hgb 11.1 L (14.0-18.0) g/dL Hct 33.4 L (42-52) % MCV 87.7 (80-100) fL MCH 29.1 (25-34) pg MCHC 33.2 (32-36) g/dL RDW Std Deviation 45.5 (36.4-46.3) fL RDW Coeff of Shahid 14.2 (11.5-14.5) % Plt Count 250 (130-400) K/uL MPV 9.3 (7.4-10.4) fL Immature Gran % (Auto) 1.0 % Neut % (Auto) 54.3 % Lymph % (Auto) 33.6 % [place] % (Auto) 10.6 % Eos % (Auto) 0.3 % Baso % (Auto) 0.2 % Neut # (Auto) 6.79 H (1.4-6.5) K/uL Lymph # (Auto) 4.20 H (1.2-3.4) K/uL [place] # (Auto) 1.32 H (0.11-0.59) K/uL Eos # (Auto) 0.04 (0-0.5) K/uL Baso # (Auto) 0.03 (0-0.2) K/uL Immature Gran # (Auto) 0.13 H (0.00-0.02) K/uL Sodium 139 (136-145) mmol/L Potassium 3.9 (3.5-5.1) mmol/L Chloride 107 (98-107) mmol/L Carbon Dioxide 24 (21-32) mmol/L Anion Gap 8.0 (3-11) BUN 26 H (7-18) mg/dl Creatinine 1.02 (0.6-1.4) mg/dl Est Cr Clr Drug Dosing 62.1 ml/min Est GFR ( Amer) 81.2 Est GFR (Non-Af Amer) 70.1 BUN/Creatinine Ratio 25.7 H (10-20) Glucose 92 (70-99) mg/dl Calcium 8.1 L (8.5-10.1) mg/dl PG Care Time/CCT Total # of Minutes Spent Total Time Spent with Patient: Total time spent is greater than 50% in coordination of care (as documented) at patient's floor/unit and/or counseling patient: Coding Level of Care Code 94468 Subseq Hosp Care Lvl 2 Diagnoses Pressure injury of deep tissue of sacral region L89.156 Suspected deep tissue injury of unknown depth of upper back R68.89
[2020-05-19] MEDS: COLLAGENASE OINT 30 GM TUBE EXT SCH (16:32)
[2020-05-19] MEDS: RIVAROXABAN 15 MG TAB PO SCH (17:07)
--- NOTE | 2020-05-19 18:01 | Billing Data ---
Date of Service May 19, 2020 Coding Level of Care Code 46086 Subseq Hosp Care Lvl 3
[2020-05-19] MEDS: FINASTERIDE 5 MG TAB PO SCH (20:39)
[2020-05-19] MEDS: DICLOFENAC SOD 1% GEL 100 GM TUBE EXT SCH (20:40)
[2020-05-19] MEDS: AMMONIUM LACTATE 12% LOTION 225 GM BTL EXT SCH (20:41)
[2020-05-20] MEDS: DICLOFENAC SOD 1% GEL 100 GM TUBE EXT PRN (01:46)
[2020-05-20] MEDS: ACETAMINOPHEN 325 MG TAB PO PRN ×3 (03:54→22:42)
[2020-05-20 06:00] LABS: Basophils # (auto) 0.06 K/uL (0-0.2); Basophils % (auto) 0.6 %; Eosinophils # (auto) 0.04 K/uL (0-0.5); Eosinophils % (auto) 0.4 %; Hematocrit (blood only) 34.1 % (42-52); Hemoglobin 11.3 g/dL (14.0-18.0); Immature Granulocytes # (auto) 0.12 K/uL (0.00-0.02); Immature Granulocytes % (auto) 1.1 %; Lymphocytes # (auto) 3.46 K/uL (1.2-3.4); Lymphocytes % (auto) 32.5 %; Mean Corpuscular Hemoglobin 28.9 pg (25-34); Mean Corpuscular Hgb Conc 33.1 g/dL (32-36); Mean Corpuscular Volume 87.2 fL (80-100); Mean Platelet Volume 9.3 fL (7.4-10.4); Monocytes # (auto) 0.95 K/uL (0.11-0.59); Monocytes % (auto) 8.9 %; Neutrophils % (auto) 56.5 %; Platelet Count 274 K/uL (130-400); RDW Standard Deviation 44.2 fL (36.4-46.3); Red Blood Count 3.91 M/uL (4.7-6.1); White Blood Count 10.63 K/uL (4.8-10.8)
[2020-05-20] MEDS: AMPICILLIN/SULBACTAM SOD 3,000 MG in 0.9 % SODIUM CHLORIDE 100 ML IV SCH ×4 (06:25→23:58)
[2020-05-20] MEDS: COLLAGENASE OINT 30 GM TUBE EXT SCH (08:03)
[2020-05-20] MEDS: DOXYCYCLINE HYCLATE 100 MG CAP PO SCH (08:04)
[2020-05-20] MEDS: OMEGA-3 (PURIFIED FISH OIL) 1 GM CAP PO SCH (08:04)
[2020-05-20] MEDS: METOPROLOL SUCC 25MG EXT REL TAB PO SCH (08:04)
[2020-05-20] MEDS: CEROVITE ADV FORMULA TAB PO SCH (08:04)
[2020-05-20] MEDS: prednisoLONE acetate 1% OP SUSP 5 ML BTL OPL SCH ×2 (08:04→20:29)
[2020-05-20] MEDS: VITAMIN B COMPLEX TAB PO SCH (08:05)
[2020-05-20] MEDS: DICLOFENAC SOD 1% GEL 100 GM TUBE EXT SCH ×4 (08:06→20:30)
--- NOTE | 2020-05-20 13:21 | Hospitalist Progress Note ---
Date of Service May 20, 2020 Assessment & Plan (1) Fever: (2) Pressure ulcer of back: (3) MARCUS (acute kidney injury): 79 yo M with PMH Chronic Afib on Xarelto, 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 Fever and Leukocytosis in the setting of Sacral Decubitus Ulcer: - Sacral wound is likely secondary to immobility from fall for several days. - With fever to 38.2C and leukocytosis to 15 on 05/18 despite doxy therapy (for Anaplasmosis). - Unasyn started, with improvement in leukocytosis 15.7 -> 12.5 -> 10.63, afebrile since fever event 05/18. - BCx x2 negative to date. - Patient on Unasyn at this time, doxy therapy for Anaplasmosis completed. Continue IV Abx while admitted, transition to PO prior to discharge. - Wound care consult / local care ongoing. Fall 2/ dehydration vs cardiac cause vs deconditioning: - Likely secondary to dehydration as patient admits poor fluid intake at baseline. 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 Described as orthostatic in nature. - Cardiology consulted this admission, Echo performed with preserved EF 55-60%, severe LVH. - Troponin elevated on admission, stabilized, no chest pain or palpitations this admission. - EKG: aflutter, widened QRS with left bundle branch block. No ST/T wave changes. - Cervical, Thoracic, Lumbar spine CT showed various levels of osteophytes and degenerative changes, however no fractures. - Head CT negative for mass, hematoma, midline shift, acute infarct. - Chest CT showed no focal consolidations, tracheal mucus buildup. - In-house PT/OT recommend acute rehab facility for strengthening. Will go to rehab pending COVID 19 testing. 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 Pathology report to follow. - Lives in [facility] and spent some time near a friend's house that is near the [facility]. - Received 1 dose Doxycycline in ED, 100 mg BID x 10 days ordered and completed this admission. Mild Rhabdomyolysis 2/ Fall: - CK 2470 on admission. - Resolved, IV fluids have been discontinued in leiu of appropriate PO intake. - Lactic acid elevated at 3.6 on admission, improved with fluids. MARCUS 2/2 Rhabdomyolysis, dehydration, fall: - Creatinine 1.77 on admission, down to 1.02 today. - MARCUS was likely was multifactorial, due to rhabdomyolysis from fall, dehydration, anaplasmosis. Altered mental status, Metabolic encephalopathy - Uncertain baseline but seems improved. AFib, Aflutter with [employer]tr[employer] Pacemaker placement: - Chronic, on Xarelto 15 mg daily, continue. 8) Elevated Liver enzymes - Likely due to Anaplasmosis, should follow up in outpatient setting after completing treatment with doxycycline. Code StatusL FULL CODE FEN/GI: Heart Healthy, easy to chew DVT ppx: Xarelto Dispo: Med/Surg, for rehab once approved, COVID 19 test pending (4) Anaplasmosis: (5) Atrial flutter, chronic: Admission and Anticipated Discharge Date Admission Date: May 08, 2020 Supervising Physician Co-Signing Physician Notes I personally examined the patient and verified all rich points of history and exam, discussed case, and agree with decision making with Dr Garber. main complaint was not sleeping well related to hip pain. knees feel a little better. since rehab denied, agrees that subacute rehab at SNF is in his best interest. thinks rosalva kauffman has dementia. no other acute complaints. vitals noted nad heent nc at mmm breathing unlabored. b/l LE edema. nontender no erythema no cords. knees visibly hypertrophied sepsis - now improving - likely from sacral ulcer as no other clear source of infection, and change in odor of ulcer. continue unasyn and local wound care. anaplasmosis - now that it's clear that recurrent sepsis was related to sacral ulcer - and anaplasmosis has been treated adequately - ok to stop doxy anticoagulated x xarelto will certainly suffice for DVT proph venous stasis edema - elevation, PT, mobilize knee DJD/OA - voltaren gel helping - continue otherwise as above Subjective Patient without acute events overnight. "Bottom is still sore", and reports that he did not sleep well overnight. No other complaints, no shortness of breath or chest pain, no nausea or vomiting, no abdominal pain, no fevers or chills. Review of Systems Review of Systems: All systems reviewed & are unremarkable except as noted in Subjective Physical Exam Constitutional: WD/WN, vitals as above Respiratory: normal respiratory effort, lungs clear to auscultation Cardiovascular: RRR, no murmur, no edema Gastrointestinal (Abdomen): normal bowel sounds, soft, nontender, no hepatosplenomegaly Psychiatric: A+Ox3, euthymic affect Results & Data Results & Data ([facility]) Vital Signs (Past 12 Hours) Vital Signs Temp Pulse Resp BP BP Pulse Ox 05/20/20 11:22 36.6 C 60 20 119/65 98 05/20/20 08:00 62 05/20/20 07:15 36.8 C 58 L 18 133/73 96 Resident Activity Tracking Resident Involvement: Resident Care Provided Care Provided: Adult Hospital Medicine (1) Pressure ulcer of back Pressure injury stage: stage 2 Qualified Code(s): L89.102 - Pressure ulcer of unspecified part of back, stage 2
[2020-05-20] MEDS: MAGNESIUM HYDROXIDE SUSP 30 ML UDC PO PRN (13:30)
[2020-05-20] MEDS: RIVAROXABAN 15 MG TAB PO SCH (17:48)
--- NOTE | 2020-05-20 18:55 | Billing Data ---
Date of Service May 20, 2020 Coding Level of Care Code 58275 Subseq Hosp Care Lvl 3
[2020-05-20] MEDS: AMMONIUM LACTATE 12% LOTION 225 GM BTL EXT SCH (20:28)
[2020-05-20] MEDS: FINASTERIDE 5 MG TAB PO SCH (20:29)
[2020-05-21] MEDS: AMPICILLIN/SULBACTAM SOD 3,000 MG in 0.9 % SODIUM CHLORIDE 100 ML IV SCH ×3 (06:08→17:41)
[2020-05-21] MEDS: CEROVITE ADV FORMULA TAB PO SCH (07:40)
[2020-05-21] MEDS: OMEGA-3 (PURIFIED FISH OIL) 1 GM CAP PO SCH (07:40)
[2020-05-21] MEDS: VITAMIN B COMPLEX TAB PO SCH (07:40)
[2020-05-21] MEDS: COLLAGENASE OINT 30 GM TUBE EXT SCH (07:40)
[2020-05-21] MEDS: prednisoLONE acetate 1% OP SUSP 5 ML BTL OPL SCH ×3 (07:41→21:04)
[2020-05-21] MEDS: DICLOFENAC SOD 1% GEL 100 GM TUBE EXT SCH ×4 (07:41→21:04)
[2020-05-21] MEDS: METOPROLOL SUCC 25MG EXT REL TAB PO SCH (07:42)
[2020-05-21] MEDS: ACETAMINOPHEN 325 MG TAB PO PRN ×2 (09:38→23:58)
--- NOTE | 2020-05-21 10:34 | Hospitalist Progress Note ---
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 Fever and Leukocytosis in the setting of Sacral Decubitus Ulcer: - fever and leukocytosis on 05/18 despite being on doxy for anaplasmosis - started on Unasyn 05/18, will need to complete 10 day course. Flip to augmentin on discharge. - bcx negative x 2 - wound care consult Fall 2/ dehydration vs cardiac cause vs deconditioning: - Likely secondary to dehydration as patient admits poor fluid intake at baseline. 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 Described as orthostatic in nature. - Cardiology consulted this admission, Echo performed with preserved EF 55-60%, severe LVH. - Troponin elevated on admission, stabilized, no chest pain or palpitations this admission. - EKG: aflutter, widened QRS with left bundle branch block. No ST/T wave changes. - Cervical, Thoracic, Lumbar spine CT showed various levels of osteophytes and degenerative changes, however no fractures. - Head CT negative for mass, hematoma, midline shift, acute infarct. - Chest CT showed no focal consolidations, tracheal mucus buildup. - In-house PT/OT recommend acute rehab facility for strengthening. Will go to rehab pending COVID 19 testing. 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 Pathology report to follow. - Lives in [facility] and spent some time near a friend's house [facility]. - Received 1 dose Doxycycline in ED, 100 mg BID x 10 days ordered and completed this admission. Mild Rhabdomyolysis 2/2 Fall: - CK 2470 on admission. - Resolved, IV fluids have been discontinued in leiu of appropriate PO intake. - Lactic acid elevated at 3.6 on admission, improved with fluids. MARCUS 2/2 Rhabdomyolysis, dehydration, fall: - Creatinine 1.77 on admission, down to 1.02 - MARCUS was likely was multifactorial, due to rhabdomyolysis from fall, dehydration, anaplasmosis. Altered mental status, Metabolic encephalopathy - Uncertain baseline but seems improved. AFib, Aflutter with Medtronic Pacemaker placement: - Chronic, on Xarelto 15 mg daily, continue. Elevated Liver enzymes - Likely due to Anaplasmosis, should follow up in outpatient setting after completing treatment with doxycycline. Code StatusL FULL CODE FEN/GI: Heart Healthy, easy to chew DVT ppx: Xarelto Dispo: Med/Surg, for rehab once approved, COVID 19 test pending (4) Anaplasmosis: (5) Atrial flutter, chronic: Admission and Anticipated Discharge Date Admission Date: May 08, 2020 Supervising Physician Co-Signing Physician Notes I personally examined the patient and verified all rich points of history and exam, discussed case, and agree with decision making with Dr Chávez. doing about the same. would like to get out of bed (i help him get to the chair) otherwise knees bugging him some but not really much of any other complaints. vitals noted nad heent nc at mmm breathing unlabored. b/l LE edema appearing sta ble. knees visibly hypertrophied sepsis - now improved - likely from sacral ulcer -- continue unasyn anaplasmosis - treated with doxy. now improved anticoagulated x xarelto will certainly suffice for DVT proph venous stasis edema - elevation, PT, mobilize knee DJD/OA - voltaren gel helping - continue this indefinitely otherwise as above Subjective Complaining this morning of lack of help to move from bed to chair. Still feeling weak in thighs and legs but much improved. Ulcers still bothersome. No acute changes in care or complaints. Review of Systems Constitutional: no fever, no chills, no body aches and no fatigue Respiratory: no cough and no dyspnea Cardiovascular: no chest pain, no dyspnea and no edema Gastrointestinal: no abdominal pain, no nausea, no vomiting, no constipation and no diarrhea/loose stools Integumentary: + wounds Physical Exam Constitutional: + thin and cooperative; no acute distress and not ill appearing Neck: normal visual inspection Respiratory: normal respiratory effort and able to speak in complete sentences; no respiratory distress, no labored breathing, no retractions, no cough and no audible wheezes Auscultation: lungs clear to auscultation bilaterally; no crackles, no rales, no rhonchi and no wheezes Cardiovascular: Rate/Rhythm: regular rate and regular rhythm Heart Sounds: normal S1 and normal S2; no gallop, no murmur and no cardiac rub Vessels: posterior tibial pulses present Extremities: no pedal edema and no edema Gastrointestinal (Abdomen): Inspection/Auscultation: abdomen normal to inspection and normal bowel sounds; abdomen not distended Percussion/Palpati on: abdomen soft; abdomen nontender, no guarding, abdomen not rigid and no abdominal mass Skin: sacral decubitus ulcers Results & Data Results & Data ([facility]) Vital Signs (Past 12 Hours) Vital Signs Temp Pulse Resp BP Pulse Ox 05/21/20 07:40 36.9 C 60 18 158/80 H 97 05/20/20 23:00 36.9 C 59 L 16 123/71 96 Laboratory Results WBC 10.63 K/uL (4.8-10.8) 05/20/20 05:31 RBC 3.91 M/uL (4.7-6.1) L 05/20/20 05:31 Hgb 11.3 g/dL (14.0-18.0) L 05/20/20 05:31 POC Hgb 17.0 g/dl (14.0-18.0) 05/08/20 18:12 Hct 34.1 % (42-52) L 05/20/20 05:31 POC Hct 50 % (42-52) 05/08/20 18:12 MCV 87.2 fL (80-100) 05/20/20 05:31 MCH 28.9 pg (25-34) 05/20/20 05:31 MCHC 33.1 g/dL (32-36) 05/20/20 05:31 RDW Std Deviation 44.2 fL (36.4-46.3) 05/20/20 05:31 RDW Coeff of Shahid 14.0 % (11.5-14.5) 05/20/20 05:31 Plt Count 274 K/uL (130-400) 05/20/20 05:31 MPV 9.3 fL (7.4-10.4) 05/20/20 05:31 Immature Gran % (Auto) 1.1 % 05/20/20 05:31 Neut % (Auto) 56.5 % 05/20/20 05:31 Lymph % (Auto) 32.5 % 05/20/20 05:31 [place] % (Auto) 8.9 % 05/20/20 05:31 Eos % (Auto) 0.4 % 05/20/20 05:31 Baso % (Auto) 0.6 % 05/20/20 05:31 Neut # (Auto) 6.00 K/uL (1.4-6.5) 05/20/20 05:31 Lymph # (Auto) 3.46 K/uL (1.2-3.4) H 05/20/20 05:31 [place] # (Auto) 0.95 K/uL (0.11-0.59) H 05/20/20 05:31 Eos # (Auto) 0.04 K/uL (0-0.5) 05/20/20 05:31 Baso # (Auto) 0.06 K/uL (0-0.2) 05/20/20 05:31 Immature Gran # (Auto) 0.12 K/uL (0.00-0.02) H 05/20/20 05:31 Dohle Bodies 1+ 05/10/20 09:10 Platelet Estimate Decreased (Normal) L 05/10/20 09:10 Giant Platelets 1+ 05/08/20 18:25 Echinocytes 1+ 05/10/20 09:10 Peripher Smr Path Cons 05/08/20 18:25 PT 12.4 Seconds (9.0-12.0) H 05/08/20 18:25 INR 1.2 (0.9-1.1) H 05/08/20 18:25 APTT 39.8 Seconds (21.0-31.0) H 05/11/20 14:05 PTT Ratio 1.4 05/11/20 14:05 VBG pH 7.38 (7.36-7.41) 05/08/20 21: VBG pCO2 37 mmHg (38-50) L 05/08/20 21: VBG pO2 31 mmHg 05/08/20 21: VBG HCO3 21 mmol/L 05/08/20 21: VBG O2 Saturation < 60.0 % 05/08/20 21: VBG Base Excess -3.4 mEq/L 05/08/20 21: Barometric Pressure 727.3 mm/Hg 05/08/20 21:23 POC Sodium 135 mmol/L (135-144) 05/08/20 18:12 Sodium 139 mmol/L (136-145) 05/19/20 05:58 POC Potassium 5.6 mmol/L (3.3-5.0) H 05/08/20 18:12 Potassium 3.9 mmol/L (3.5-5.1) 05/19/20 05:58 POC Chloride 108 mmol/L (101-112) 05/08/20 18:12 Chloride 107 mmol/L (98-107) 05/19/20 05:58 Carbon Dioxide 24 mmol/L (21-32) 05/19/20 05:58 POC Total CO2 18 mmol/L (24-31) L 05/08/20 18:12 Anion Gap 8.0 (3-11) 05/19/20 05:58 POC Anion Gap 16.0 mmol/L (16-25) 05/08/20 18:12 POC BUN 43 mg/dl (7-18) H 05/08/20 18:12 BUN 26 mg/dl (7-18) H 05/19/20 05:58 Creatinine 1.02 mg/dl (0.6-1.4) 05/19/20 05:58 POC Creatinine 1.7 mg/dl (0.6-1.3) H 05/08/20 18:12 Est Cr Clr Drug Dosing 62.1 ml/min 05/19/20 05:58 Est GFR ( Amer) 81.2 05/19/20 05:58 Est GFR (Non-Af Amer) 70.1 05/19/20 05:58 BUN/Creatinine Ratio 25.7 (10-20) H 05/19/20 05:58 Glucose 92 mg/dl (70-99) 05/19/20 05:58 POC Glucose 105 mg/dl (70-99) H 05/14/20 11:43 POC Glucose (other) 133 mg/dl (70-99) H 05/08/20 18:12 Lactate 3.3 mmol/L (0.4-2.0) H* 05/10/20 11:00 Calcium 8.1 mg/dl (8.5-10.1) L 05/19/20 05:58 POC Ioniz Calcium Ese 0.97 mmol/l (1.12-1.32) L 05/08/20 18:12 Magnesium 2.8 mg/dl (1.8-2.4) H 05/08/20 18:25 Total Bilirubin 0.6 mg/dl (0.2-1) D 05/10/20 09:10 Direct Bilirubin 0.2 mg/dl (0-0.2) 05/10/20 09:10 AST 115 U/L (15-37) H 05/10/20 09:10 ALT 85 U/L (12-78) H 05/10/20 09:10 Alkaline Phosphatase 42 U/L (45-117) L 05/10/20 09:10 Lactate Dehydrogenase 429 U/L (87-241) H 05/09/20 02:15 Total Creatine Kinase 981 U/L (39-308) H 05/10/20 11:00 Troponin I 0.654 ng/ml (0-0.045) H* 05/09/20 07:20 NT-Pro-B Natriuret Pep 3849 pg/ml (0-1800) H 05/11/20 05:30 Total Protein 5.5 gm/dl (6.4-8.2) L 05/10/20 09:10 Albumin 1.9 gm/dl (3.4-5.0) L 05/10/20 09:10 Globulin 4.3 gm/dl (2.5-4.0) H 05/09/20 02:15 Albumin/Globulin Ratio 0.5 (0.9-2) L 05/09/20 02:15 TSH 0.508 uIu/ml (0.300-4.500) 05/08/20 18:25 Urine Color Dark Yellow 05/08/20 18:25 Urine Appearance Turbid (Clear) A 05/08/20 18:25 Urine pH 5.0 (4.5-7.5) 05/08/20 18:25 Ur Specific [place] 1.028 (1.000-1.030) 05/08/20 18:25 Urine Protein 2+ (Negative) H 05/08/20 18:25 Urine Glucose (UA) Negative (Negative) 05/08/20 18:25 Urine Ketones Trace (Negative) H 05/08/20 18:25 Urine Blood 3+ (Negative) H 05/08/20 18:25 Urine Nitrite Negative (Negative) 05/08/20 18:25 Urine Bilirubin Negative (Negative) 05/08/20 18:25 Urine Urobilinogen Negative (Negative) 05/08/20 18:25 Ur Leukocyte Esterase Negative (Negative) 05/08/20 18:25 Urine WBC (Auto) 1-5 /hpf (0-5) 05/08/20 18:25 Urine RBC (Auto) 10-30 /hpf (0-4) H 05/08/20 18:25 U Hyaline Cast (Auto) >30 /lpf (0-5) H 05/08/20 18:25 U Epithel Cells (Auto) >30 /lpf (0-5) H 05/08/20 18:25 Urine Bacteria (Auto) Negative (Negative) 05/08/20 18:25 Ur Renal Epithelial Cell Not Reportable 05/08/20 18:25 Granular Casts >30 /lpf (0) H 05/08/20 18:25 Urine Yeast Not Reportable 05/08/20 18:25 Anaplasma Smear See Comment A 05/08/20 18:25 Anaplasma Comment Pos for Anaplasma 05/08/20 18:25 Resident Activity Tracking Resident Involvement: Resident Care Provided Care Provided: Adult Hospital Medicine (1) Pressure ulcer of back Pressure injury stage: stage 2 Qualified Code(s): L89.102 - Pressure ulcer of unspecified part of back, stage 2
[2020-05-21] MEDS: RIVAROXABAN 15 MG TAB PO SCH (17:41)
--- NOTE | 2020-05-21 18:23 | Billing Data ---
Date of Service May 21, 2020 Coding Level of Care Code 28518 Subseq Hosp Care Lvl 3
[2020-05-21] MEDS: AMMONIUM LACTATE 12% LOTION 225 GM BTL EXT SCH (21:04)
[2020-05-21] MEDS: FINASTERIDE 5 MG TAB PO SCH (21:05)
[2020-05-22] MEDS: DICLOFENAC SOD 1% GEL 100 GM TUBE EXT PRN (02:23)
[2020-05-22] MEDS: AMPICILLIN/SULBACTAM SOD 3,000 MG in 0.9 % SODIUM CHLORIDE 100 ML IV SCH ×3 (05:22→11:49)
[2020-05-22 05:37] LABS: Basophils # (auto) 0.08 K/uL (0-0.2); Basophils % (auto) 0.9 %; Eosinophils # (auto) 0.05 K/uL (0-0.5); Eosinophils % (auto) 0.5 %; Hematocrit (blood only) 35.5 % (42-52); Hemoglobin 11.5 g/dL (14.0-18.0); Immature Granulocytes # (auto) 0.09 K/uL (0.00-0.02); Lymphocytes # (auto) 3.99 K/uL (1.2-3.4); Lymphocytes % (auto) 43.2 %; Mean Corpuscular Hemoglobin 29.1 pg (25-34); Mean Corpuscular Hgb Conc 32.4 g/dL (32-36); Mean Corpuscular Volume 89.9 fL (80-100); Mean Platelet Volume 9.3 fL (7.4-10.4); Monocytes # (auto) 0.78 K/uL (0.11-0.59); Monocytes % (auto) 8.5 %; Neutrophils # (auto) 4.24 K/uL (1.4-6.5); Neutrophils % (auto) 45.9 %; Platelet Count 314 K/uL (130-400); RDW Standard Deviation 45.9 fL (36.4-46.3); Red Blood Count 3.95 M/uL (4.7-6.1); White Blood Count 9.23 K/uL (4.8-10.8)
--- NOTE | 2020-05-22 08:42 | Hospitalist Progress Note ---
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 Fever and Leukocytosis in the setting of Sacral Decubitus Ulcer: - fever and leukocytosis on 05/18 despite being on doxy for anaplasmosis - started on Unasyn 05/18, will need to complete 10 day course. Flip to augmentin on discharge. - bcx negative x 2 - wound care consult Fall 2/ dehydration vs cardiac cause vs deconditioning: - Likely secondary to dehydration as patient admits poor fluid intake at baseline. 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 Described as orthostatic in nature. - Cardiology consulted this admission, Echo performed with preserved EF 55-60%, severe LVH. - Fall workup on admission negative for EKG changes, intracranial changes, fractures - In-house PT/OT recommend acute rehab facility for strengthening. Will go to rehab pending COVID 19 testing. 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 Pathology report to follow. - Lives in [facility] and spent some time near a friend's house that is near the [facility]. - Received 1 dose Doxycycline in ED, 100 mg BID x 10 days ordered and completed this admission. Mild Rhabdomyolysis 2/2 Fall: resolved - CK 2470 on admission. - Resolved, IV fluids have been discontinued in leiu of appropriate PO intake. - Lactic acid elevated at 3.6 on admission, improved with fluids. MARCUS 2/2 Rhabdomyolysis, dehydration, fall: resolved - Creatinine 1.77 on admission, down to 1.02 - MARCUS was likely was multifactorial, due to rhabdomyolysis from fall, dehydration, anaplasmosis. Altered mental status/Metabolic encephalopathy - Uncertain baseline but seems improved. AFib, Aflutter with Medtronic Pacemaker placement: - Chronic, on Xarelto 15 mg daily, continue. Elevated Liver enzymes - Likely due to Anaplasmosis, should follow up in outpatient setting after completing treatment with doxycycline. Code StatusL FULL CODE FEN/GI: Heart Healthy, easy to chew DVT ppx: Xarelto Dispo: Med/Surg, for rehab on Thursday 05/24, COVID 19 test pending (4) Anaplasmosis: (5) Atrial flutter, chronic: Admission and Anticipated Discharge Date Admission Date: May 08, 2020 Subjective grumpy this AM because he has not been given his morning meds or helped to the chair. says pain is 10/10 when sitting in bed, better when sitting in bedside chair. Encouraged to ambulate with walker and nurse household assistant. Review of Systems Constitutional: no fever, no chills, no body aches and no fatigue +Sacral and thigh Pain Respiratory: no cough and no dyspnea Cardiovascular: no chest pain, no dyspnea and no edema Gastrointestinal: no abdominal pain, no nausea, no vomiting, no constipation and no diarrhea/loose stools Physical Exam Constitutional: + obese and cooperative; no acute distress and not ill appearing Neck: normal visual inspection Respiratory: normal respiratory effort and able to speak in complete sentences; no respiratory distress, no labored breathing, no retractions, no cough and no audible wheezes Auscultation: lungs clear to auscultation bilaterally; no crackles, no rales, no rhonchi and no wheezes Cardiovascular: Rate/Rhythm: regular rate and regular rhythm Heart Sounds: normal S1 and normal S2; no gallop, no murmur and no cardiac rub Vessels: posterior tibial pulses present Extremities: no pedal edema and no edema Gastrointestinal (Abdomen): Inspection/Auscultation: abdomen normal to inspection and normal bowel sounds; abdomen not distended Per cussion/Palpation: abdomen soft; abdomen nontender, no guarding, abdomen not rigid and no abdominal mass Psychiatric: Affect: + irritable affect Results & Data Results & Data ([facility]) Vital Signs (Past 12 Hours) Vital Signs Temp Pulse Resp BP Pulse Ox 05/22/20 07:14 36.4 C L 60 18 167/81 H 97 05/21/20 22:44 36.8 C 60 16 122/75 94 Laboratory Results WBC 9.23 K/uL (4.8-10.8) 05/22/20 05:05 RBC 3.95 M/uL (4.7-6.1) L 05/22/20 05:05 Hgb 11.5 g/dL (14.0-18.0) L 05/22/20 05:05 POC Hgb 17.0 g/dl (14.0-18.0) 05/08/20 18:12 Hct 35.5 % (42-52) L 05/22/20 05:05 POC Hct 50 % (42-52) 05/08/20 18:12 MCV 89.9 fL (80-100) 05/22/20 05:05 MCH 29.1 pg (25-34) 05/22/20 05:05 MCHC 32.4 g/dL (32-36) 05/22/20 05:05 RDW Std Deviation 45.9 fL (36.4-46.3) 05/22/20 05:05 RDW Coeff of Shahid 14.0 % (11.5-14.5) 05/22/20 05:05 Plt Count 314 K/uL (130-400) 05/22/20 05:05 MPV 9.3 fL (7.4-10.4) 05/22/20 05:05 Immature Gran % (Auto) 1.0 % 05/22/20 05:05 Neut % (Auto) 45.9 % 05/22/20 05:05 Lymph % (Auto) 43.2 % 05/22/20 05:05 [place] % (Auto) 8.5 % 05/22/20 05:05 Eos % (Auto) 0.5 % 05/22/20 05:05 Baso % (Auto) 0.9 % 05/22/20 05:05 Neut # (Auto) 4.24 K/uL (1.4-6.5) 05/22/20 05:05 Lymph # (Auto) 3.99 K/uL (1.2-3.4) H 05/22/20 05:05 [place] # (Auto) 0.78 K/uL (0.11-0.59) H 05/22/20 05:05 Eos # (Auto) 0.05 K/uL (0-0.5) 05/22/20 05:05 Baso # (Auto) 0.08 K/uL (0-0.2) 05/22/20 05:05 Immature Gran # (Auto) 0.09 K/uL (0.00-0.02) H 05/22/20 05:05 Dohle Bodies 1+ 05/10/20 09:10 Platelet Estimate Decreased (Normal) L 05/10/20 09:10 Giant Platelets 1+ 05/08/20 18:25 Echinocytes 1+ 05/10/20 09:10 Peripher Smr Path Cons 05/08/20 18:25 PT 12.4 Seconds (9.0-12.0) H 05/08/20 18:25 INR 1.2 (0.9-1.1) H 05/08/20 18:25 APTT 39.8 Seconds (21.0-31.0) H 05/11/20 14:05 PTT Ratio 1.4 05/11/20 14:05 VBG pH 7.38 (7.36-7.41) 05/08/20 21:23 VBG pCO2 37 mmHg (38-50) L 05/08/20 21:23 VBG pO2 31 mmHg 05/08/20 21:23 VBG HCO3 21 mmol/L 05/08/20 21:23 VBG O2 Saturation < 60.0 % 05/08/20 21:23 VBG Base Excess -3.4 mEq/L 05/08/20 21:23 Barometric Pressure 727.3 mm/Hg 05/08/20 21:23 POC Sodium 135 mmol/L (135-144) 05/08/20 18:12 Sodium 139 mmol/L (136-145) 05/19/20 05:58 POC Potassium 5.6 mmol/L (3.3-5.0) H 05/08/20 18:12 Potassium 3.9 mmol/L (3.5-5.1) 05/19/20 05:58 POC Chloride 108 mmol/L (101-112) 05/08/20 18:12 Chloride 107 mmol/L (98-107) 05/19/20 05:58 Carbon Dioxide 24 mmol/L (21-32) 05/19/20 05:58 POC Total CO2 18 mmol/L (24-31) L 05/08/20 18:12 Anion Gap 8.0 (3-11) 05/19/20 05:58 POC Anion Gap 16.0 mmol/L (16-25) 05/08/20 18:12 POC BUN 43 mg/dl (7-18) H 05/08/20 18:12 BUN 26 mg/dl (7-18) H 05/19/20 05:58 Creatinine 1.02 mg/dl (0.6-1.4) 05/19/20 05:58 POC Creatinine 1.7 mg/dl (0.6-1.3) H 05/08/20 18:12 Est Cr Clr Drug Dosing 62.1 ml/min 05/19/20 05:58 Est GFR ( Amer) 81.2 05/19/20 05:58 Est GFR (Non-Af Amer) 70.1 05/19/20 05:58 BUN/Creatinine Ratio 25.7 (10-20) H 05/19/20 05:58 Glucose 92 mg/dl (70-99) 05/19/20 05:58 POC Glucose 105 mg/dl (70-99) H 05/14/20 11:43 POC Glucose (other) 133 mg/dl (70-99) H 05/08/20 18:12 Lactate 3.3 mmol/L (0.4-2.0) H* 05/10/20 11:00 Calcium 8.1 mg/dl (8.5-10.1) L 05/19/20 05:58 POC Ioniz Calcium Ese 0.97 mmol/l (1.12-1.32) L 05/08/20 18:12 Magnesium 2.8 mg/dl (1.8-2.4) H 05/08/20 18:25 Total Bilirubin 0.6 mg/dl (0.2-1) D 05/10/20 09:10 Direct Bilirubin 0.2 mg/dl (0-0.2) 05/10/20 09:10 AST 115 U/L (15-37) H 05/10/20 09:10 ALT 85 U/L (12-78) H 05/10/20 09:10 Alkaline Phosphatase 42 U/L (45-117) L 05/10/20 09:10 Lactate Dehydrogenase 429 U/L (87-241) H 05/09/20 02:15 Total Creatine Kinase 981 U/L (39-308) H 05/10/20 11:00 Troponin I 0.654 ng/ml (0-0.045) H* 05/09/20 07:20 NT-Pro-B Natriuret Pep 3849 pg/ml (0-1800) H 05/11/20 05:30 Total Protein 5.5 gm/dl (6.4-8.2) L 05/10/20 09:10 Albumin 1.9 gm/dl (3.4-5.0) L 05/10/20 09:10 Globulin 4.3 gm/dl (2.5-4.0) H 05/09/20 02:15 Albumin/Globulin Ratio 0.5 (0.9-2) L 05/09/20 02:15 TSH 0.508 uIu/ml (0.300-4.500) 05/08/20 18:25 Urine Color Dark Yellow 05/08/20 18:25 Urine Appearance Turbid (Clear) A 05/08/20 18:25 Urine pH 5.0 (4.5-7.5) 05/08/20 18:25 Ur Specific [place] 1.028 (1.000-1.030) 05/08/20 18:25 Urine Protein 2+ (Negative) H 05/08/20 18:25 Urine Glucose (UA) Negative (Negative) 05/08/20 18:25 Urine Ketones Trace (Negative) H 05/08/20 18:25 Urine Blood 3+ (Negative) H 05/08/20 18:25 Urine Nitrite Negative (Negative) 05/08/20 18:25 Urine Bilirubin Negative (Negative) 05/08/20 18:25 Urine Urobilinogen Negative (Negative) 05/08/20 18:25 Ur Leukocyte Esterase Negative (Negative) 05/08/20 18:25 Urine WBC (Auto) 1-5 /hpf (0-5) 05/08/20 18:25 Urine RBC (Auto) 10-30 /hpf (0-4) H 05/08/20 18:25 U Hyaline Cast (Auto) >30 /lpf (0-5) H 05/08/20 18:25 U Epithel Cells (Auto) >30 /lpf (0-5) H 05/08/20 18:25 Urine Bacteria (Auto) Negative (Negative) 05/08/20 18:25 Ur Renal Epithelial Cell Not Reportable 05/08/20 18:25 Granular Casts >30 /lpf (0) H 05/08/20 18:25 Urine Yeast Not Reportable 05/08/20 18:25 Anaplasma Smear See Comment A 05/08/20 18:25 Anaplasma Comment Pos for Edis[place] 05/08/20 18:25 Resident Activity Tracking Resident Involvement: Resident Care Provided Care Provided: Adult Hospital Medicine (1) Pressure ulcer of back Pressure injury stage: stage 2 Qualified Code(s): L89.102 - Pressure ulcer of unspecified part of back, stage 2
[2020-05-22] MEDS: CEROVITE ADV FORMULA TAB PO SCH (09:53)
[2020-05-22] MEDS: OMEGA-3 (PURIFIED FISH OIL) 1 GM CAP PO SCH (09:53)
[2020-05-22] MEDS: VITAMIN B COMPLEX TAB PO SCH (09:54)
[2020-05-22] MEDS: METOPROLOL SUCC 25MG EXT REL TAB PO SCH (09:54)
[2020-05-22] MEDS: prednisoLONE acetate 1% OP SUSP 5 ML BTL OPL SCH ×2 (09:57→13:07)
[2020-05-22] MEDS: DICLOFENAC SOD 1% GEL 100 GM TUBE EXT SCH ×2 (09:59→12:29)
[2020-05-22] MEDS: COLLAGENASE OINT 30 GM TUBE EXT SCH (09:59)
--- NOTE | 2020-05-22 12:56 | Discharge Summary ---
Date of Service May 22, 2020 Admission HPI Per Admitting Provider 79 yo M who was found down at home after neighbor was concerned his mail was piling up at mailbox for multiple days. HPI limited by patient's confusion and poor memory. He denies recalling an inciting incident that led to him falling at home. He denies any pain, but says his chest tightness is improving. He states he was coughing at home but doesn't remember for how long this has been an issue. He denies any nausea or vomiting, trouble breathing (on 5L oxymask at time of interview). A&O to person and year. States his full name appropriately, is aware that it is 2019 and Jovani is president, thought he was in [facility]. Admission Exam Per Admitting Provider Constitutional: thin, breathing with some difficulty Eyes: eyes closed in bed, opens to command Mouth: thick secretions, no oral swelling Cardiac: irregularly irregular, regular rate, no murmurs or gallops noted Pulm: good air movement throughout both lungs, diffuse transmitted upper airway sounds vs. rhonchorous breath sounds, no focal crackles or wheezes noted Abd: soft, nontender, nondistended, normal bowel sounds, no rebound or guarding Extremities: 2+ peripheral pulses, no edema, no calf tenderness bilaterally Neuro: no focal deficits, moving all 4 limbs, A&Ox3 Principal Diagnosis Anaplasmosis Discharge Exam Constitutional: + obese and cooperative; no acute distress and not ill appearing Neck: normal visual inspection Respiratory: normal respiratory effort and able to speak in complete sentences; no respiratory distress, no labored breathing, no retractions, no cough and no audible wheezes Auscultation: lungs clear to auscultation bilaterally; no crackles, no rales, no rhonchi and no wheezes Cardiovascular: Rate/Rhythm: regular rate and regular rhythm Heart Sounds: normal S1 and normal S2; no gallop, no murmur and no cardiac rub Vessels: posterior tibial pulses present Extremities: no pedal edema and no edema Gastrointestinal (Abdomen): Inspection/Auscultation: abdomen normal to inspection and normal bowel sounds; abdomen not distended Percussion/Palpation: abdomen soft; abdomen nontender, no guarding, abdomen not rigid and no abdominal mass Psychiatric: Affect: + irritable affect Discharge Data Allergies Allergy/AdvReac Type Severity Reaction Status Date / Time No Known Allergies Allergy Verified 05/08/20 18:15 Consultations 05/08/20 20:08 ED Decision to Admit Stat 05/08/20 22:23 Consult Case Management - Discharge Planning Routine 05/10/20 11:33 Consult Cardiology Routine 05/11/20 19:47 Consult Wound Care Provider Routine Ordered Studies 05/08/20 17:55 CT abd pelvis wo con Stat CT cervical spine wo con Stat CT chest wo con Stat CT head/brain wo con Stat CT lumbar spine wo con Stat CT thoracic spine wo con Stat Hospital Course (1) Fever: (2) Pressure ulcer of back: (3) MARCUS (acute kidney injury): 79 yo M with PMH Chronic Afib on Xarelto, 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 Fever and Leukocytosis in the setting of Sacral Decubitus Ulcer: Despite being on doxycycline, pt developed mild leukocytosis and fevers on 05/18, likely stemming from cellulitic infection of sacral decubitus ulcers. Received 3 days of IV unasyn in hospital, converted to 875/125 Augmentin on discharge for 7 more days to complete 10 day course on 05/30. Fall 2/2 dehydration vs cardiac cause vs deconditioning: Pt was found down at home after neighbors hadn't seen him for a few days; had been on the floor for 3 days. Likely secondary to dehydration as patient admits poor fluid intake at baseline. Cardiac ECHO showed EF 55-60% with severe LVH, still has frequent episodes of orthostatic dizziness and syncope despite TAVR replacement and pacemaker. Will need to continue PT for strengthening at [facility]. 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 Completed 10 day course of doxycycline for full treatment. Discussed with patient getting anti-flea and tick medication for his pets as they likely brought the tick into the house. Outpatient follow up items - Recommend repeat CMP as liver enzymes elevated during hospital stay. Likely secondary to Anaplasmosis infection. - Recommend repeat CBC in a week to ensure resolution of cellulitis from ulcer (4) Anaplasmosis: (5) Atrial flutter, chronic: Total Time Total Time Spent Total Time Spent (In Minutes): <30 Discharge Plan Discharge Items Patient Disposition: Transfer [facility] Reason For Visit: FALL, ALTERED MENTAL STATUS Activity: Resume your previous activity Lifting: Gradually increase as tolerated Non-emergency contact: Primary Care Provider Call non-emergency contact if: your wound has increased redness, your wound has increased drainage and your wound pain has increased Follow-up/Referrals: Kyle Nolan MD [Primary Care Provider] - Diet: Regular Addtl Attending Provider Instructions: 79 yo M with PMH Chronic Afib on Xarelto, 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 Fever and Leukocytosis in the setting of Sacral Decubitus Ulcer: - fever and leukocytosis on 05/18 despite being on doxy for anaplasmosis - started on Unasyn 05/18, will need to complete 10 day course. Flipped to augmentin on discharge. - bcx negative x 2 - wound care following Fall 2/2 dehydration vs cardiac cause vs deconditioning: - Likely secondary to dehydration as patient admits poor fluid intake at baseline. 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 Described as orthostatic in nature. - Cardiology consulted this admission, Echo performed with preserved EF 55-60%, severe LVH. - Fall workup on admission negative for EKG changes, intracranial changes, fractures - In-house PT/OT recommend acute rehab facility for strengthening. Will go to rehab pending COVID 19 testing. 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 Pathology report to follow. - Lives in [facility] and spent some time near a friend's house that is near the [facility]. - Received 1 dose Doxycycline in ED, 100 mg BID x 10 days ordered and completed this admission. Mild Rhabdomyolysis 2/2 Fall: resolved - CK 2470 on admission. - Resolved, IV fluids have been discontinued in leiu of appropriate PO intake. - Lactic acid elevated at 3.6 on admission, improved with fluids. MARCUS 2/2 Rhabdomyolysis, dehydration, fall: resolved - Creatinine 1.77 on admission, down to 1.02 - MARCUS was likely was multifactorial, due to rhabdomyolysis from fall, dehydratio n, anaplasmosis. Altered mental status/Metabolic encephalopathy - Uncertain baseline but seems improved. AFib, Aflutter with [employer] Pacemaker placement: chronic - Chronic, on Xarelto 15 mg daily, continue. Elevated Liver enzymes - Likely due to Anaplasmosis, should follow up in outpatient setting after completing treatment with doxycycline. Code StatusL FULL CODE FEN/GI: Heart Healthy, easy to chew DVT ppx: Xarelto Dispo: [place] Pending Studies at Discharge: No Stand-Alone Forms: My [facility] [employer] Skilled Items Patient informed of condition?: Yes DNR: No Discharge Level of Care: Skilled Communicable Disease: No Discharge Prognosis: Stable Lines: None Urinary Catheter: No Medications and DC Order Prescriptions: New acetaminophen 325 mg Tablet 650 mg PO Q4H PRN (Reason: fever or pain) Qty: 30 RF: 0 polyethylene glycol 3350 [Miralax] 17 gram Powder In Packet 17 g PO DAILY PRN (Reason: constipation) Qty: 30 RF: 0 amoxicillin-pot clavulanate [Augmentin] 875-125 mg tablet 1 tab PO BID 7 Days Qty: 14 RF: 0 Continued biotin 2,500 mcg capsule 2,500 mcg PO DAILY Qty: 30 RF: 2 Centrum Silver 400-250 mcg tablet,chewable 1 tab PO DAILY Qty: 30 RF: 0 omega-3 fatty acids 1,000 mg capsule 1,000 mg PO DAILY Qty: 30 RF: 0 Glucosamine Complex-MSM capsule 1 cap PO DAILY Qty: 90 RF: 0 Xarelto 20 mg tablet 20 mg PO QPM RF: 0 diclofenac sodium 1 % Gel 2 g TOPICAL UD PRN (Reason: Pain) RF: 0 metoprolol succinate 50 mg tablet extended release 24 hr 50 mg PO QAM RF: 0 ammonium lactate 12 % cream 1 appln TOP QPM RF: 0 vitamin B complex Capsule 1 cap PO DAILY RF: 0 finasteride 5 mg tablet 5 mg PO QPM RF: 0 diphenhydramine-acetaminophen [Acetaminophen PM] 25-500 mg Tablet 1 tab PO HS PRN (Reason: Pain) RF: 0 Discharge Orders: Discharge Order (Routine); Ordered 05/22/20 Ordered By: Tana Chávez Admission Data Admit Date/Time: 05/08/20 21:41 Attending Provider: Cody Leon Admit Provider: Tana Chávez Primary Care Provider: Kyle Nolan Other Providers: [place] ; [facility] ; Tova Pimentel ; Felix Foster ; Steve Ureña ; [facility] ; Michelle Estrada at [place] ; Tana Chávez Other Interventions: Discharge Summary Assessment (RN) Last Done: 05/22/20 13:08 DC Date/Time DO NOT enter until pt leaves facility: 05/22/20 13:45 Supervising Physician Co-Signing Physician Notes I personally examined the patient and verified all rich points of history and exam, discussed case, and agree with decision making with Dr Chávez. doing about the same. is set up for SNF today! ready to go. vitals noted nad heent nc at mmm breathing unlabored. b/l LE edema appearing stable. knees visibly hypertrophied sepsis - now improved - likely from sacral ulcer -- improved on unasyn - transition to PO augmentin to finish course of abx, ongoing local wound care. anaplasmosis - treated with doxy. now improved anticoagulated x xarelto will certainly suffice for DVT proph venous stasis edema - elevation, PT, mobilize knee DJD/OA - voltaren gel helping - continue this indefinitely otherwise as above Resident Activity Tracking Resident Involvement: Resident Care Provided Care Provided: Adult Hospital Medicine
--- NOTE | 2020-05-22 19:41 | Billing Data ---
Date of Service May 22, 2020 Coding Level of Care Code D/C Day Management <30 mins
== END 2020-05-22 13:45 | DRG 867 ==
LOC: ED 17:43 → SUATTDRO 21:41 → 2S 21:41 → 2N 05-15 18:24 → 3N 05-22 04:29